=== PATIENT | female | born 1940 | race Caucasian/White ===

== ENCOUNTER → 2023-09-26 08:34 | Outpatient (REF) | payer MEDICARE, SELFPAY | LOC: DHCBC MAIN 08:34 | PROVIDERS: ATTENDING PHYSICIAN Internal Medicine Cardiovascular Disease; FAMILY PHYSICIAN Internal Medicine | DX: I35.0 Nonrheumatic aortic (valve) stenosis (principal) | CPT/HCPCS: 93306 ==

== ENCOUNTER 2023-10-23 06:15 | Inpatient (IN) | payer MEDICARE, OTHER, SELFPAY ==
[2023-10-23] VITALS (60 sets, daily range): BP systolic 97–203; BP diastolic 37–103; PULSE 2–115; BMI 42.3; BMI 40.7
--- NOTE | 2023-10-23 03:12 | ED.GENMED ---
History of Present Illness
General
Chief Complaint: Back Pain
Source: patient
Exam Limitations: none
Time Seen by Provider: 10/23/23 02:55
Nursing documentation reviewed up to this point in time: agreed with
Travel History
Have you had any contact with someone who has COVID-19?: No
Do you have any symptoms of coronavirus? Fever > 100 degrees, chills, cough, shortness of breath, sore throat, loss of taste or smell, muscle aches, or headache?: No
History of Present Illness
History of Present Illness:
Patient presents to ED secondary to persistent lower back pain over the past 1 week. Patient states that she felt pain as she was going in and out of the car. Denies previous history of back pain. Denies direct trauma. Denies fever or chills.
Denies urinary or bowel incontinence. Denies loss of sensation or weakness. Patient was evaluated by her primary care physician yesterday and was started on steroids, without improvement in symptoms. Of note, patient states that at rest, without
movement, there is minimal pain, but worse with any movement or ambulation.
Past History
Past History
ED Past Medical History: GERD, HTN, Hypercholesterolemia and NIDDM
ED Past Surgical History: Gynecological (Partial hysterectomy) and Orthopedic (Left knee arthroscopy, bilateral total knee replacement)
Social History
Tobacco: Non-smoker
Alcohol: None
Personal: Single
Living: alone
Employment: Retired
Family History
Family History: Other (Noncontributory)
Review of Systems
Review of Systems
Allergies reviewed?: Yes
All Other Systems: ROS reviewed and negative except as documented in HPI and ROS
Constitutional: Reports no symptoms; Denies fever
ABD/GI: Reports no symptoms
: Denies incontinence or difficulty voiding
Musculoskeletal: Reports back pain
Skin: Reports no symptoms
Neurological: Reports no symptoms; Denies weakness or numbness
Phy Exam
Physical Exam
Physical Exam:
Physical Exam
General: no apparent distress, not acutely ill. afebrile
Head; nc/at. eomi
Neck: supple. normal range of motion
Abdomen: normal bowel sounds. not tender.
Back: no midline tenderness. mild lower back tenderness at level of L4-5. positive right leg raise at 45 degrees.
Neuro: alert and oriented. no focal neurological deficits
Skin: no rash
Psychiatric: well kept. interactive and cooperative
Extremities: LE b/l lymphedema. no calf tenderness.
Scores
Heart Failure Risk
Heart Failure Risk Score: Yes
History of Stroke or TIA: No
History of intubation for respiratory distress: No
Heart rate on ED arrival >/= 110: Yes
SaO2 <90% on arrival on room air: Yes
HR >/=110 during 3min walk test (or too ill to perform test): No
ECG has acute ischemic changes: No
Urea >/=12mmol/L (BUN 33.6mg/dL): No
Serum CO2>/=35mmol/L: No
Troponin I or T elevated to IL Level (0.4mg/dL): No
NT-proBNP >/=5,000ng/L (5,000pg/ml): No
HF Risk Score: 1
Admission Status: MEDIUM RISK 5.1% Consider observation or discharge to home with homecare & f/u visit to PCP/[facility], or SNF for treatment
Course
Orders/Labs/Results
Orders:
Orders
10/23/23 03:08
Oxycodone/Acetaminophen [Percocet 5/325] 1 tablet PO NOW STA
CR Lumbar Spine Comp Min 4 Vw* Urgent
Comment:
Reason For Exam: low back pain
10/23/23 03:56
Electrocardiogram (*1) Urgent
Reason for Study: Shortness of Breath
EKG- Treatment ONCE
CR Chest Portable - 1 View Urgent
Comment:
Reason For Exam: cough/sob
Reason Study Needs to be Portable: Patient Unstable
10/23/23 03:57
Ipratropium/Albuterol Sulfate [Duoneb] 3 ml INH R NOW STA
10/23/23 04:03
Furosemide [Lasix] 40 mg IV NOW STA
10/23/23 04:04
Nitroglycerin 100 mg/250 ml [Nitroglycerin Premix] 100 mg in 250 ml .ROUTE .STK-MED
Nitroglycerin 100 mg/250 ml [Nitroglycerin Premix] 100 mg in 250 ml IV NOW
Initial dose in mcg/min, then titrate:: 100
Titrate to keep:: SBP < 160 mmHg
Titrate by mcg/min:: 5 mcg/min, may increase by 10 mcg/min if dose > 20 mcg/min
Frequency of titrations (minutes):: every 3-5 minutes
Maximum dose in mcg/min:: 200
Begin to taper infusion when:: Remained at goal for 2hrs
Taper by mcg/min:: 5 mcg/min
Frequency of taper (minutes) if patient maintains goal:: 30
Taper to off?: Yes
If infusion off & no longer maintaining goal:: Contact Provider
10/23/23 04:05
Complete Blood Count/With Diff Urgent
Comprehensive Metabolic Panel Urgent
Magnesium Urgent
NT-proBNP Urgent
Troponin I Urgent
10/23/23 04:26
D-Dimer Urgent
10/23/23 04:54
Electrocardiogram (*1) Urgent
Reason for Study: Shortness of Breath
EKG- Treatment ONCE
10/23/23 05:04
CT Chest Pe Study Urgent
Comment:
Reason For Exam: sob/hypoxia
10/23/23 05:36
Admit/Transfer Patient As Directed
Co-Sign Provider:
Level of Care: Inpatient admission
Assign to:: IMU- Intermediate Care
Physician / Group: John
Diagnosis: Hypertensive Emergency, Pulmonary Edema, Back Pain
Reason for Hospitalization: Hypertensive Emergency, Pulmonary Edema, Back Pain
Expected length of stay greater than two midnights?: Yes
ELOS- Estimated Length of Stay in days: 3
I certify the patient meets the requirements for IP care: Yes
10/23/23 05:38
Code Status As Directed
Resuscitation Status: Do not resuscitate
Reached after discussion with pt or family/Healthcare POA: Yes
10/23/23 05:41
DNR Bracelet Application ONCE
10/23/23 Breakfast
1800 calorie (15 carb) Diabetic
At Your Request: Full Participation
Fluid Restriction: 1440 mL/day (48 oz)
10/23/23 07:28
Dextrose 50%-Water [Dextrose 50% Syringe] 12.5 grams IV [id number] PRN
Glucagon [GlucaGen] 1 mg IM PRN PRN
Nitroglycerin 100 mg/250 ml [Nitroglycerin Premix] 100 mg in 250 ml IV PER PROTOCOL
Currently infusing. Continue current dose and titrate:: Yes
Titrate to keep:: SBP < 160 mmHg
Titrate by mcg/min:: 5 mcg/min, may increase by 10 mcg/min if dose > 20 mcg/min
Frequency of titrations (minutes):: every 3-5 minutes
Maximum dose in mcg/min:: 200
Begin to taper infusion when:: Remained at goal for 2hrs
Taper by mcg/min:: 5 mcg/min
Frequency of taper (minutes) if patient maintains goal:: 30
Taper to off?: Yes
If infusion off & no longer maintaining goal:: Contact Provider
Polyethylene Glycol Powder [Miralax] 17 grams PO DAILY PRN
Tramadol HCl [Ultram] 50 mg PO Q6HPRN PRN
10/23/23 07:28
CARDIOLOGY CONSULT Routine
Consulting Provider: Kali Wellington
Was physician already notified: No
Reason for consult: CHF,
Consult Notification Routine
Specialty to Notify: Cardiology
Date consulting provider notified: 10/23/23
Time consulting provider notified: 07:36
Notified:: Provider
Activity As Directed
Activity Level: Ambulate
With Assistance
Bedside Glucose Monitoring As Directed
Frequency: AC&HS
Additional Instructions:: Change to q6h if pt on TPN, tube feeding or not eating
Bladder Scan As Directed
Follow Bladder Retention/Intermittent Cath Algorithm?: Yes
PRN if no void in __ hours: 6
Frequency: Per Retention Algorithm
If Bladder Scan Result >: 400
then:: Straight cath
EKG with chest pain [ECG as needed] As Directed
ECG as needed for:: Chest Pain
Heat Application As Directed
Apply heat therapy device to (location):: Low Back
Device Frequency setting:: 20 minute cycles
Device temperature setting:: Low: 95 F (35 C)
I/O [Intake/ Output] As Directed
Frequency: Per unit guidelines
Straight Cath As Directed
Frequency: Per Retention Algorithm
Additional Instructions: straight cath as needed per acute urinary retention algorithm for 24 hrs
Additional Instructions: for bladder scan greater than 400 mL
Vital Signs As Directed
Frequency: Per unit guidelines
Weight As Directed
Frequency: Daily
Bipap [RESP] Routine
Patient to use own unit?: No
Inspiratory Pressure (cm H2O): 15
Expiratory Pressure (cm H2O): 5
Oxygen Therapy [O2 Therapy] [RESP] Routine
Titrate/Wean O2 to maintain O2 sat greater than (%): 94
Ot Eval And Treat Routine
PT Consult [Pt Eval And Treat] Routine
Activity Level: Ambulate
With Assistance
DX Deep Vein Thrombosis Video Routine
10/23/23 07:30
Insulin Aspart Corrective Low [Novolog Flexpen-Low Resistance] See Protocol SC AC
10/23/23 08:00
Acetaminophen [Tylenol] 1,000 mg PO TID
Aspirin Chewable [Low Strength Aspirin] 81 mg PO DAILY
Atorvastatin [Lipitor] 40 mg PO DAILY
Carvedilol [Coreg] 25 mg PO BID
Docusate Sodium [Colace] 100 mg PO BID
Furosemide [Lasix] 20 mg IV BID AT 0800,1600
Heparin 5,000 units SC Q12
Pantoprazole [Protonix] 40 mg PO DAILY
10/23/23 12:44
TSH Reflex To Free T4 Routine
10/24/23 05:10
Basic Metabolic Panel IN AM
Complete Blood Count/No Diff IN AM
Glycohemoglobin (HgbA1c) IN AM
10/24/23 06:00
EKG [Electrocardiogram (*1)] IN AM
Reason for Study: Chest Pain
Abnormal Lab Results
10/23/23 10/23/23
04:05 04:26
WBC 14.1 H 10^3/uL
(4.8-10.8)
RBC 3.77 L 10^6/uL
(4.20-5.40)
Hgb 11.9 L g/dL
(12.0-16.0)
Hct 34.0 L %
(37.0-47.0)
MCH 31.6 H pg
(27.0-31.0)
MPV 11.3 H fL
(7.4-10.4)
Abs Immat Gran (auto) 0.1 H 10^3/uL
(0-0.05)
Absolute Neuts (auto) 12.5 H 10^3/uL
(1.4-6.5)
Absolute Lymphs (auto) 0.8 L 10^3/uL
(1.2-3.4)
Immature Gran % 1.0 H %
(0-0.5)
Neutrophils % 88.7 H %
(42.2-75.2)
Lymphocytes % 5.8 L %
(20.5-51.1)
D-Dimer 1.59 H ug/mlFEU
(0.00-0.50)
Sodium 130 L mmol/L
(135-145)
Potassium 5.5 H mmol/L
(3.5-5.1)
BUN 22 H mg/dl
(7-17)
Creatinine 1.1 H mg/dL
(0.6-1.0)
Glucose 260 H mg/dl
(70-99)
Calcium 11.6 H mg/dl
(8.4-10.2)
Troponin I 0.063 H* ng/ml
10/23/23 04:05
10/23/23 04:05
Vital Signs
Initial and Last Documented VS:
Initial Vital Signs
Temp Pulse Resp BP Pulse Ox
98.3 F 84 16 198/65 94
10/23/23 02:52 10/23/23 02:52 10/23/23 02:52 10/23/23 02:52 10/23/23 02:52
Last Documented Vital Signs
Temp Pulse Resp BP Pulse Ox
97.5 F 54 14 158/51 97
10/24/23 03:06 10/24/23 04:00 10/24/23 04:00 10/24/23 04:00 10/24/23 03:00
MDM/Problems Addressed
MDM/Problems Addressed:
As patient is being evaluated for an acute lower back pain with x-ray, patient noted to become suddenly short of breath with hypoxia. On exam, patient with extreme sob with crackles on exam. Chest x-ray ordered confirming interstitial edema.
Patient given Lasix, started on BiPAP, as well as nitroglycerin bolus and infusion. Slowly, patient noted to become more restful subjective and objective improvement in symptoms.
Mildly elevated troponin noted with elevated d-dimer. Will obtain CTA for PE evaluation.
Critical care statement: A total of 40 minutes of critical care time was provided for this patient. This includes management of unstable vital signs, evaluation of the patient at bedside, reviewing the patient's pertinent medical records, review of
old EKGs and review of pertinent medical records. This time with separate from time utilized to perform the aforementioned documented procedures
*EKG
Interpreted by ED Provider?: Yes
EKG Intrepretation Date: 10/23/23
Heart Rate: 122
Rate: tachycardiac
Rhythm: sinus
[place]: normal axis
Interval: normal interval
QRS Pattern: normal QRS
*Critical Care Note
Total Time (30-74mins, 75-104mins- exclusive of procedures): 40 min
ED Attending Note
-
Portions of this chart may have been created with voice recognition software.� Occasional wrong word or��sound alike� substitutions may have occurred due to the inherent limitations of voice recognition software.
Discharge Plan
Departure
Patient Disposition: Admit
Date of Disposition: 10/23/23
Time of Disposition: 05:12
Admit to: IMU
Presentation/result/management discussed w/ accepting MD/DO: Hospitalist
Discharge Problem:
Pulmonary edema, Hypoxia, Back pain
Interventions
Interventions:
*Risk Screen - Suicide Last Done: 10/23/23 02:52
*General Assessment Last Done: 10/23/23 02:52
*Neglect/Abuse Screening Last Done: 10/23/23 02:52
ED- Fall Risk Assessment Last Done: 10/23/23 03:55
*ED COVID-19 Vaccine History Last Done: 10/23/23 02:52
*Nursing Disposition Last Done: 10/23/23 07:38
ED-Musculoskeletal Assessment Last Done: 10/23/23 03:55
Discharge Date and Time
Discharge Date/Time: 10/23/23 07:39
[2023-10-23] MEDS: PERCOCET 5/325 1 TABLET PO (03:48)
--- NOTE | 2023-10-23 03:55 | EDRN ---
On initial assessment of pt pt had a slight audible wheeze. Pt denied SOB and sated her only complaint was her back. Pain medication adminitered, SPO2 shortly following was 80% on room air with increasingly worse wheezing and sudden respiratory
distress. Pt with no difficulty swallowing medication, no signs of aspiration. Dr. phoenix notified and at the bedside. Pt BP quickly increased, Two Iv lines were placed, bloodwork drawn and sent to lab, ecg completed, respiratory paged for bipap. 40mg
iv lasix administered by rn, 1200mcg iv nitro pushed by dr. phoenix, nitro gtt started, see worklist for titration. RNs and Dr. Phoenix remained at the bedside. Currently pt states easier work of breathing following medications and bipap placement. Ongoing
care.
[2023-10-23 04:15] LABS: % Basophils 0.2 % (0-2); % Lymphocytes 5.8 % (20.5-51.1); % Monocytes 4.3 % (1.7-9.3); % Neutrophils 88.7 % (42.2-75.2); Absolute Immature Granulocytes 0.1 10^3/uL (0-0.05); Absolute Lymphocytes 0.8 10^3/uL (1.2-3.4); Absolute Monocytes 0.6 10^3/uL (0.1-0.6); Absolute Neutrophils 12.5 10^3/uL (1.4-6.5); Hemoglobin 11.9 g/dL (12.0-16.0); Mean Corpuscular Hgb 31.6 pg (27.0-31.0); Mean Corpuscular Volume 90.2 fL (81.0-99.0); Mean Platelet Volume 11.3 fL (7.4-10.4); Nucleated Red Blood Cells % 0 %; Platelet Count 305 10^3/uL (130-400); Red Blood Cell Count 3.77 10^6/uL (4.20-5.40); Red Cell Dist. Width 12.9 % (11.5-14.5); White Blood Cell Count 14.1 10^3/uL (4.8-10.8)
[2023-10-23] MEDS: DUONEB 3 ML INH (04:17)
[2023-10-23] MEDS: LASIX 40 MG IV (04:18)
[2023-10-23] MEDS: NITROGLYCERIN PREMIX 250 IV (04:19)
[2023-10-23 04:39] LABS: ALT (SGPT) 22 U/L (0-35); AST (SGOT) 24 U/L (14-36); Albumin 4.2 g/dl (3.5-5.0); Alkaline Phosphatase 125 U/L (38-126); Blood Urea Nitrogen 22 mg/dl (7-17); Calcium 11.6 mg/dl (8.4-10.2); Carbon Dioxide 22 mmol/L (22-30); Chloride 103 mmol/L (98-107); Estimated Creatinine Clearance 42 ml/min; Glucose 260 mg/dl (70-99); Magnesium 1.6 mg/dl (1.6-2.3); Potassium 5.5 mmol/L (3.5-5.1); Sodium 130 mmol/L (135-145); Total Bilirubin 0.8 mg/dl (0.2-1.3); Total Protein 6.8 g/dl (6.3-8.2); eGFR 50.48
[2023-10-23 04:55] LABS: D-Dimer 1.59 ug/mlFEU (0.00-0.50)
[2023-10-23 04:56] LABS: NT-proBNP 2150 pg/ml; Troponin I 0.063 ng/ml
--- NOTE | 2023-10-23 05:43 | HPS.HSE ---
Family Physician
-
Family Physician: Adry Ahmadi
Chief Complaint
-
Back Pain (then SOB)
History of Present Illness
Patient is an 83y F with PMH significant for hypertension, DM-II and severe who presents to ED complaining of low back pain for 7-10 days. Patient states that she was getting into / out of her car about 10 days ago when she felt a 'pull'.
She has noted persistent pain since that time in the mid-lower back with radiation around to the L. She denies any other specific injury, fall or trauma. She has not noted any rash or skin lesions in the affected area. Patient was seen by her PCP
on 10/20 and was started on a Medrol dose pack - without significant improvement in her symptoms.
This evening the patient presented to the ED for further evaluation. She was in mild - moderate distress on arrival due to her pain and her BP was elevated to 198/65 initially.
She received a single dose of Percocet in the ED and was sent for L-spine x-rays.
When she returned from x-ray, patent began to have significant SOB with marked hypoxemia (80% on room air) and worsening hypertension (203/103).
Patient was ultimately placed on BiPAP. CXR revealed evidence of pulmonary edema. Patient received IV Lasix and has had a brisk response.
At the time of my examination, patient feels much improved. She appears comfortable on BiPAP and is able to speak in complete sentences.
Patient denies any chest pain, palpitations. No recent illness, cough, fevers / chills, etc.
Patient does note that she has had increase in her typical LE edema - probably over the past 2 weeks or so.
She has no prior history of CHF - though she is followed by Cardiology for severe .
Medical History
Past Medical History
Past Medical History: Reports Other
Additional Past Medical History:
Hypertension
DM-II
Severe Aortic Stenosis
Mild-Moderate Mitral Regurgitation
DM-II
Obesity
GERD
Hyperparathyroidism
CKD III
Past Surgical History: Reports Other
Additional Past Surgical History:
Appendectomy
DRE
Bilateral TKA
Cholecystectomy
Social History
Tobacco: Non-smoker
Alcohol: None
Drug: None
Family History
Family History: Not pertinent
Allergies / Home Medications
Allergies reflects when Allergies were last updated in [employer].
Home Medications with original date entered in [employer]
Allergy/Medication List:
Allergies
Allergy/AdvReac Type Severity Reaction Status Date / Time
NSAIDS (Non-Steroidal Allergy Unknown Verified 10/23/23 02:57
Anti-Inflamma
sulindac Allergy Unknown Verified 10/23/23 02:57
Home Medications
omeprazole 10 mg capsule,delayed release (Prilosec) 20 mg PO DAILY PRN Heartburn 06/29/18
amlodipine 2.5 mg tablet 2.5 mg PO DAILY 10/23/23
atorvastatin 40 mg tablet 40 mg PO DAILY 10/23/23
carvedilol 25 mg tablet 25 mg PO BID 10/23/23
lisinopril 10 mg tablet 10 mg PO DAILY 10/23/23
pioglitazone 30 mg tablet (Actos) 30 mg PO DAILY 10/23/23
Review of Systems
-
History Source: Patient
A 12 point ROS was completed and negative except as noted: Yes
Constitutional: Reports Fatigue; Denies Fever or Chills
Respiratory: Reports Trouble Breathing; Denies Cough or Hemoptysis
Cardiac: Denies Chest Pain, Palpitations or Syncope
Abdomen/GI: Denies Abdominal Pain, Nausea, Vomiting or Diarrhea
: Denies Dysuria, Frequency or Bleeding
Musculoskeletal: Reports Edema and Other (Back Pain)
Neurological: Denies Dizzy or Headache
Psych: Denies Depression or Anxiety
Physical Exam
Vital Signs
Vital Signs
Temp Pulse Resp BP Pulse Ox
98.3 F 97 24 132/52 97
10/23/23 02:52 10/23/23 04:40 10/23/23 04:40 10/23/23 04:40 10/23/23 04:40
Physical Exam
General: Other (83y F in no acute distress.)
HEENT: Moist mucous membranes, PERRLA and Other (BiPAP in place.)
Respiratory: Other (Rales mostly appreciated on the R. No wheezes / rhonchi.)
Cardiac: S1/S2, Regular Rhythm and Murmur (IV/ VICENTE)
GI: Non Tender, Non Distended, Normal Bowel Sounds and Other (Obese)
Musculoskeletal: No Clubbing, No Cyanosis and Other (3+ pitting edema b/l LEs to the mid thigh. Posterior tenderness in L3 area. No visible rashes / skin lesions.)
Neuro: AO x 3 and Nonfocal/grossly intact
Laboratory Results
-
10/23/23 04:05
10/23/23 04:05
Laboratory Results
Total Bilirubin 0.8 mg/dl (0.2-1.3) 10/23/23 04:05
AST 24 U/L (14-36) 10/23/23 04:05
ALT 22 U/L (0-35) 10/23/23 04:05
Alkaline Phosphatase 125 U/L (38-126) 10/23/23 04:05
Troponin I 0.063 ng/ml H* 10/23/23 04:05
Impression/Plan
-
A/P: Patient is an 83y F with PMH significant for valvular heart disease, HTN and DM-II who presented to the ED for evaluation of low back pain and developed hypoxemia / pulmonary edema during her stay.
Acute HFpEF
Acute Hypoxemic Respiratory Failure secondary to the above
Severe Aortic Stenosis
Mild - Moderate Mitral Regurgitation
- Admit to IMU for further evaluation and treatment.
- Continue BiPAP for now and consider trial off of NIPPV later this morning.
- Continue IV Lasix BID and follow I/Os, daily weights, etc.
- Cardiology evaluation.
- Echo was done last month (09/26/23) and shows LVEF = 70-75% with diastolic dysfunction, severe and mild - moderate MR.
- No prior h//o CHF - though patient admits to recent increase in LE edema.
- Suspect that current episode is culmination of several factors including valvular heart disease, medication effects (Actos, amlodipine, Medrol), pain / hypertension, etc.
- Follow for continued clinical improvement and adjust med regimen as needed.
Hypertensive Emergency
- BP elevation exaggerated due to acute pain and likely contributed to acute pulm edema presentation.
- Continue IV NTG and titrate as needed / able.
- Hold amlodipine due to edema and lisinopril due to hyperkalemia.
- Continue carvedilol.
- Adjust med regimen / add additional medications as needed for continued BP control.
- Suspect BP will improve with diuresis and pain control.
- Be cautious with nitro / preload reduction given severe .
DM-II
- Stable. Discontinue Actos and would remain off of this indefinitely.
- Follow glucose and cover with SSI as needed for now.
- Consider alternate oral medications on discharge.
- Patient would likely benefit from SGLT2 inhibitor, etc.
Hyperkalemia
- K = 5.5 on initial labs. No significant EKG changes of hyperkalemia.
- Hold DRAKE inhibitor as noted above.
- IV Lasix diuresis.
- Follow for changes in labs / lytes.
Low Back Pain
- Patient describes radicular pain with no apparent rash / lesions noted on exam.
- Continue efforts at pain control.
- PT / OT evaluations.
- X-ray without obvious compression fracture, etc.
- Consider MR for further evaluation if pain - specifically radicular component - persists.
- Hold further Medrol doses.
Hyperparathyroidism
- Chronic hypercalcemia noted on labs with dx of hyperPTH.
- Not on any active treatment at this time.
- Follow for changes in labs, new symptoms, etc.
Morbid Obesity due to excess calories
- Affects all aspects of care.
- Encourage healthy diet and increased activity with goal of weight loss.
DVT Prophylaxis: Subcut Heparin
Code Status: DNR
[2023-10-23 08:21] LABS: Glucose - Point of Care 262 mg/dl (70-99)
[2023-10-23] MEDS: NOVOLOG FLEXPEN-LOW RESISTANCE 3 UNITS SC ×2 (08:33→12:53)
[2023-10-23] MEDS: COLACE 100 MG PO ×2 (08:34→20:26)
[2023-10-23] MEDS: HEPARIN 5000 UNITS SC ×2 (08:34→20:26)
[2023-10-23] MEDS: COREG 25 MG PO ×2 (08:34→20:27)
[2023-10-23] MEDS: LASIX 20 MG IV ×2 (08:35→15:32)
[2023-10-23] MEDS: LIPITOR 40 MG PO (08:35)
[2023-10-23] MEDS: PROTONIX 40 MG PO (08:36)
[2023-10-23] MEDS: LOW STRENGTH ASPIRIN 81 MG PO (08:36)
[2023-10-23] MEDS: TYLENOL 1000 MG PO ×3 (08:36→21:25)
[2023-10-23] MEDS: ULTRAM 50 MG PO (08:36)
[2023-10-23] MEDS: MIRALAX 17 GRAMS PO (08:37)
[2023-10-23] MEDS: LIDOCAINE 4% PATCH 1 PATCH TOPICAL (10:20)
--- NOTE | 2023-10-23 11:38 | CON.CAR ---
Consultation
Consultation Request
Date/Time Consultation Requested: 10/23/2023
Date/Time Consultation Performed: 10/23/2023
Requesting Provider: Dr. Lopez
Performing Provider: Dr. Wellington
Reason for Consultation: Severe aortic stenosis
Medical History
-
Chief Complaint: Shortness of breath
History of Present Illness:
83-year-old female (known to Dr. Hawk, her primary Solar Sales Specialist) with severe aortic stenosis, mild mitral stenosis, hypertension, hyperlipidemia, NIDDM, CKD, chronic edema, and obesity presenting with back pain and shortness of breath. The patient
was hypertensive on presentation with a blood pressure of 203/103 mmHg. She denies any chest pain, palpitations, or syncopal events. She has been noticing some progressive lower extremity swelling. She is not on Lasix at home. The patient was
admitted with flash pulmonary edema.
Past Medical History
Past Medical History: HTN, Hypercholesterolemia, NIDDM, Renal Failure and Valvular Disease (Severe aortic stenosis, mild mitral stenosis)
Past Surgical History: Appendectomy (2009), Cholecystectomy, Gynecological (Hysterectomy) and Orthopedic (Knee replacement surgeries)
Social History
Tobacco: Non-Smoker
Alcohol: None
Drug: None
Personal: Single
Living: Alone
Employment: Retired
Family History
Family History: CAD
Allergies / Home Medications
Allergy/AdvReac Type Severity Reaction Status Date / Time
NSAIDS (Non-Steroidal Allergy Unknown Verified 10/23/23 02:57
Anti-Inflamma
sulindac Allergy Unknown Verified 10/23/23 02:57
�Medication �Instructions �Recorded �Confirmed �Type
omeprazole 10 mg capsule,delayed 20 mg PO DAILY PRN Heartburn 06/29/18 10/23/23 History
release (Prilosec)
acetaminophen 500 mg tablet 1,000 mg PO Q6H PRN back pain 10/23/23 History
amlodipine 2.5 mg tablet 2.5 mg PO DAILY 10/23/23 10/23/23 History
atorvastatin 40 mg tablet 40 mg PO DAILY 10/23/23 10/23/23 History
carvedilol 25 mg tablet 25 mg PO BID 10/23/23 10/23/23 History
lisinopril 10 mg tablet 10 mg PO DAILY 10/23/23 10/23/23 History
pioglitazone 30 mg tablet (Actos) 30 mg PO DAILY 10/23/23 10/23/23 History
prednisone 5 mg tablets in a dose 0 mg PO PER PKG DIR 10/23/23 History
pack
Review of Systems
-
History Source: Patient
All other systems: Negative unless noted
Physical Exam
Vital Signs
Temp Pulse Resp BP Pulse Ox
97.6 F 56 19 117/50 98
10/23/23 08:03 10/23/23 11:00 10/23/23 11:00 10/23/23 11:00 10/23/23 11:29
Lab Results
10/23/23 04:05
Troponin I 0.063 ng/ml H* 10/23/23 04:05
Mmp-J-Ctapcqojavj Pept 2150 pg/ml 10/23/23 04:05
Physical Exam
General: No Apparent Distress and Comfortable
HEENT: Normocephalic
Respiratory: Rhonchi
Cardiac: S1/S2 (Normal S1, absent S2), Regular Rhythm, Murmur (4/6 systolic murmur) and Peripheral Edema (2-3+)
Breast: Deferred by me
GI: Soft
Rectal: Deferred by Provider
Musculoskeletal: Edema (2-3+)
Skin: Warm and Dry
Neuro: AO x 3
Psych: Calm
Impression / Plan
-
83-year-old female (known to Dr. Hawk, her primary Solar Sales Specialist) with severe aortic stenosis, mild mitral stenosis, hypertension, hyperlipidemia, NIDDM, CKD, chronic edema, and obesity presenting with back pain and shortness of breath. The patient
was hypertensive on presentation with a blood pressure of 203/103 mmHg. She denies any chest pain, palpitations, or syncopal events. She has been noticing some progressive lower extremity swelling. She is not on Lasix at home. The patient was
admitted with flash pulmonary edema.
Severe symptomatic aortic stenosis/acute HFpEF:
-Major contributor to flash pulmonary edema.
-The patient will benefit from a TAVR, likely as inpatient.
-Will arrange cardiac catheterization for tomorrow; NPO after midnight.
-Continue Lasix 20 mg IV twice daily; monitor renal function.
-Mild troponin elevation is most likely secondary to acute nonischemic myocardial injury in the setting of valvular heart disease/HFpEF; continue to trend.
Hypertension:
-Hypertensive on admission--major component of flash pulmonary edema; improved with IV Lasix.
-Continue Coreg 25 mg twice daily
-Hold lisinopril 10 mg daily for now.
Hyperlipidemia:
-Continue atorvastatin 40 mg daily.
Mitral stenosis:
-Mild; follow clinically over time.
CKD:
-Creatinine is 1.1; relatively stable.
-Continue to trend renal function throughout hospitalization.
Diabetes:
-Management as per primary team.
Previous data:
Transthoracic Echocardiogram (09/26/2023): EF 70-75%; severe aortic stenosis, peak/mean gradients 93/52 mmHg, KAELYN 0.7 cm�; mild MS, mild/moderate MR.
Data Reviewed
-
EKG: Report Reviewed by me (Sinus rhythm)
Medical Tests (Nuc Med, Echo etc): Report Reviewed by me (Transthoracic Echocardiogram (09/26/2023): EF 70-75%; severe aortic stenosis, peak/mean gradients 93/52 mmHg, KAELYN 0.7 cm�; mild MS, mild/moderate MR.)
Labs: Labs Reviewed by me
Old Records: Reviewed (Cardiology office visit 10/03/2023)
[2023-10-23 12:11] LABS: Glucose - Point of Care 251 mg/dl (70-99)
--- NOTE | 2023-10-23 12:23 | PTCARENOTE ---
3 unsuccessful attempts to draw labs, phlebotomy made aware and will be up to draw labs
[2023-10-23] MEDS: NOVOLOG FLEXPEN 3 UNITS SC ×2 (12:54→16:59)
[2023-10-23 13:17] LABS: Troponin I 0.097 ng/ml
[2023-10-23 13:35] LABS: TSH Reflex To Free T4 2.98 uIU/ml (0.47-4.68)
--- NOTE | 2023-10-23 14:09 | W.PN.UPDATE ---
Update Note
Progress Note Update
Nonbillable note
Lab/images/chart reviewed
Patient seen and examined
Heart failure exacerbation/sev -entered on IV Lasix. Cardiology evaluation pending.
Hypertensive emergency -on nitro drip. Getting oral blood pressure medication. Wean off nitro as possible with
Hyperkalemia -got Lokelma. On Lasix. Follow-up level and BMP.
Low back pain -lumbar spinal x-ray negative for compression fracture. Lidocaine patch ordered. MRI if not improved.
--- NOTE | 2023-10-23 14:42 | PTCARENOTE ---
Pt continues with back pain with movement, but resting comfortably when undisturbed. Turned/repositioned. Denies sob, oxygen weaned to 2lnc.
[2023-10-23 14:57] LABS: COVID-19 Antigen Negative (Negative)
--- NOTE | 2023-10-23 15:40 | PTCARENOTE ---
Attempted to wean pt to room air, sats dropped as low as 88%. Pt denies sob, does not look in distress, placed back on 2lnc and sats quickly improved to high 90s. Bp has been stable off nitro gtt since this am. Pt continues to wince in pain with
repositioning, , medicated with tylenol as charted.
[2023-10-23 16:40] LABS: Glucose - Point of Care 172 mg/dl (70-99)
[2023-10-23] MEDS: NOVOLOG FLEXPEN-LOW RESISTANCE 1 UNITS SC (16:59)
[2023-10-23 18:44] LABS: Blood Urea Nitrogen 26 mg/dl (7-17); Calcium 11.4 mg/dl (8.4-10.2); Carbon Dioxide 22 mmol/L (22-30); Chloride 101 mmol/L (98-107); Estimated Creatinine Clearance 35 ml/min; Glucose 174 mg/dl (70-99); Potassium 4.8 mmol/L (3.5-5.1); Sodium 129 mmol/L (135-145); eGFR 41.31
[2023-10-23 21:34] LABS: Glucose - Point of Care 161 mg/dl (70-99)
[2023-10-24] VITALS (28 sets, daily range): BP systolic 91–168; BP diastolic 39–108; PULSE 2–68; BMI 40.3
--- NOTE | 2023-10-24 00:12 | PTCARENOTE ---
Rec'd care of patient at 1900. Patient alert and oriented. KAW. SB on tele monitor. Rate in the 50's. +Murmur. BP stable off nitro gtt. +1 anasarca. +3 chronic edema in b/l LE. Voiding via purewick. No BM. VSS. Placed on BiPAP around 2200. NPO for
cardiac cath in am.
[2023-10-24 00:32] LABS: Troponin I 0.071 ng/ml
[2023-10-24] MEDS: ULTRAM 50 MG PO ×2 (02:26→08:16)
[2023-10-24 05:32] LABS: Hematocrit 29.9 % (37.0-47.0); Hemoglobin 10.4 g/dL (12.0-16.0); Mean Corp Hgb Conc. 34.8 g/dL (33.0-37.0); Mean Corpuscular Hgb 31.5 pg (27.0-31.0); Mean Corpuscular Volume 90.6 fL (81.0-99.0); Mean Platelet Volume 11.2 fL (7.4-10.4); Platelet Count 225 10^3/uL (130-400); Red Cell Dist. Width 12.9 % (11.5-14.5); White Blood Cell Count 7.1 10^3/uL (4.8-10.8)
[2023-10-24 06:01] LABS: Blood Urea Nitrogen 27 mg/dl (7-17); Calcium 11.3 mg/dl (8.4-10.2); Carbon Dioxide 23 mmol/L (22-30); Chloride 101 mmol/L (98-107); Estimated Creatinine Clearance 35 ml/min; Glucose 161 mg/dl (70-99); Potassium 4.5 mmol/L (3.5-5.1); Sodium 132 mmol/L (135-145); eGFR 41.31
[2023-10-24] MEDS: LIDOCAINE 4% PATCH 1 PATCH TOPICAL (08:11)
[2023-10-24] MEDS: NOVOLOG FLEXPEN SC (08:11)
[2023-10-24] MEDS: LIPITOR 40 MG PO (08:17)
[2023-10-24] MEDS: TYLENOL 1000 MG PO ×3 (08:17→20:59)
[2023-10-24] MEDS: COREG 25 MG PO (08:17)
[2023-10-24] MEDS: COLACE 100 MG PO (08:18)
[2023-10-24] MEDS: HEPARIN 5000 UNITS SC ×2 (08:18→20:53)
[2023-10-24] MEDS: LOW STRENGTH ASPIRIN 81 MG PO (08:18)
[2023-10-24] MEDS: LASIX 20 MG IV ×2 (08:18→15:59)
[2023-10-24] MEDS: NOVOLOG FLEXPEN-LOW RESISTANCE 1 UNITS SC ×3 (08:19→16:55)
[2023-10-24] MEDS: PROTONIX 40 MG PO (08:19)
[2023-10-24 08:23] LABS: Glucose - Point of Care 158 mg/dl (70-99)
--- NOTE | 2023-10-24 08:48 | PTCARENOTE ---
report received, assessments per work list. patient with increased back pain, intermittent and increased with position change. unable to tolerate head of bed elevation past 20 degrees. medicated with scheduled Tylenol and prn dose tramadol. . +3
lower extremity edema. +murmur, nsr. lungs with crackles 3/4 up bilaterally. oxygen decreased to 1 liter. abdomen obese, + bowel sounds. purewick in place draining large amounts yellow urine. call cotton in reach. reviewed plan of care and cardiac
cath for today.
[2023-10-24 09:50] LABS: Glycohemoglobin (HgbA1c) 8.6 % (4.0-5.6)
--- NOTE | 2023-10-24 10:07 | PTCARENOTE ---
report to veterinary laboratory technician staff,transport to veterinary laboratory technician by veterinary laboratory technician staff
--- NOTE | 2023-10-24 10:12 | W.PN.CD ---
Today's Communication / Plan
-
R/L heart cath as a preamble to TAVR.
D/C outpatient pioglitazone.
Adjust diuretics based on filling pressures at cath.
Impression / Plan
-
Impression/Plan: 83-year-old female (known to Dr. Hawk, her primary Legal Analyst) with severe aortic stenosis, mild mitral stenosis, hypertension, hyperlipidemia, NIDDM, CKD, chronic edema, and obesity admitted with hypertensive emergency and
shortness of breath consistent with flash pulmonary edema.
#Severe symptomatic aortic stenosis/acute HFpEF
-Major contributor to flash pulmonary edema.
-The patient will benefit from a TAVR.
-Cardiac catheterization today to evaluate for CAD and as a workup for TAVR.
#Abnormal Troponin
-Acute.
-Plateau trend (0.063 --> 0.097 --> 0.090 --> 0.071), consistent with non-MO troponin elevation.
#Hypertension
-Chronic, labile.
-Hypertensive on admission--major component of flash pulmonary edema; improved with IV furosemide.
-Continue carvedilol 25 mg BID.
-Hold lisinopril 10 mg daily for now.
#Hyperlipidemia:
-Chronic, stable.
-Continue atorvastatin 40 mg daily.
#Mitral stenosis:
-Mild, stable.
-Follow clinically over time.
#CKD
-Stable. Creatinine is 1.1 - 1.3.
-Continue to trend renal function throughout hospitalization.
#Diabetes:
-Chronic.
-HbA1c pending.
-Management as per primary team.
-D/C pioglitazone given HFpEF symptoms.
Subjective/Interval History:
Diuresed 2.7 liters per I/O, weight down another kg.
Bradycardic (50's).
Labile BP, (99/39 - 168/53).
Remains on 1LNC, SaO2 98%.
Hbg down to 10.4 (from 11.9).
DATA:
CTPE, 10/23/2023:
IMPRESSION:
No findings to confirm central pulmonary embolism.
Patchy bilateral parenchymal opacities some of which are groundglass which could represent an inflammatory/infectious process, alveolar edema or combination of both with accompanying small bilateral pleural effusions.
Mild cardiomegaly with small anterior pericardial effusion versus pericardial thickening.
Small hiatal hernia.
Prior cholecystectomy.
TTE, 09/26/2023:
CONCLUSIONS
Hyperdynamic left ventricular systolic function. Estimated left ventricular
ejection fraction is 70-75%.
Stage II diastolic dysfunction suggestive of abnormal relaxation and increased
filling pressures.
Severe aortic stenosis. The peak gradient across the valve is 93 mmHg with a
mean of 52 mmHg. Using a LVOT diameter of 2.0 cm, the KAELYN is 0.7 cm sq. Trace
aortic regurgitation.
Mild mitral stenosis. Mild/moderate mitral regurgitation.
Compared to 02/18/23: mean gradient across the aortic valve has increased from 42
mmHg to 52 mmHg. LVEF has increased from 65-70% to 70-75%.
Physical Exam
Vital Signs/Labs
Vital Signs
Temp Pulse Resp BP Pulse Ox
36.1 C 53 14 168/53 98
10/24/23 07:24 10/24/23 09:00 10/24/23 09:00 10/24/23 08:18 10/24/23 09:00
10/22/23 10/23/23 10/24/23
11:59 11:59 11:59
Actual Weight 94.461 kg 93.712 kg
10/24/23 05:10
10/24/23 05:10
Magnesium 1.6 mg/dl (1.6-2.3) 10/23/23 04:05
10/23/23
04:05
Pam-S-Ucmkyohcvje Pept 2150
LAB Results
10/23/23 10/23/23 10/23/23
04:05 07:28 12:44
Troponin I 0.063 H* Cancelled 0.097 H*
10/23/23 10/23/23 10/23/23
13:28 18:15 19:28
Troponin I Cancelled 0.090 H* Cancelled
10/23/23
23:45
Troponin I 0.071 H*
Physical Exam
Constitutional: No acute distress and Comfortable
EENT: Anicteric and Moist mucous membranes
Cardiovascular: Rhythm & rate is regular, Pedal edema is absent, JVD pressure is normal, Systolic murmur present and S1S2 is normal
Respiratory: Respiratory effort normal, Lungs clear to auscul., Wheeze Absent, Crackles Absent and Rhonchi Absent
GI: Soft, Distention absent, Flat, Non tender and Normal bowel sounds
Neuro/Psych: AO x 3
Data Reviewed
-
Date of Service: October 24, 2023
Medical Decision Making: Reviewed Test Results, Independent Historian Assessment and Test Interpretation
EKG: Tracing Personally Visualized and interpreted and Report Reviewed by me
Echo: Tracing Personally Visualized and interpreted and Report Reviewed by me
X-Ray/CT/US/MRI/NUC/PET: Image Personally Visualized and interpreted and Report Reviewed by me
Medical Tests (PFT, Pathology etc): Report Reviewed by me
Labs: Labs Reviewed by me
Old Records: Reviewed
[2023-10-24 11:18] LABS: ACT-LR - POC 310 Seconds (116-155)
--- NOTE | 2023-10-24 11:29 | ITS.CL.CATH ---
[facility] - Catheterization
Cardiac Catheterization
Procedure Report:
CARDIAC CATHETERIZATION REPORT
Date of Procedure: 10/24/2023
Referring: Kali Wellington M.D.
Indication: Critical aortic valve stenosis, abnormal troponin.
PROCEDURE:
1. Right heart catheterization.
2. Coronary angiography.
3. Successful IFR of the mid LAD.
ACCESS:
6 Danish right radial artery.
5 Danish right antecubital vein.
CATHETERS:
1. 5 Danish balloon wedge.
2. 5 Danish JL 4.
3. 5 Danish JR4.
4. 6 Danish EBU 3.5 guiding catheter.
HEMODYNAMIC DATA
Weight (kg): 93.7
AO (s/d/x mmHg): 158/54/84
LV (s/x mmHg): Not obtained.
PCWP (a/v/x mmHg): 26/30/24
PA (s/d/x mmHg): 45/25/32
RV (s/x mmHg): 45/15
RA (a/v/x mmHg): 17/17/15
SVC SvO2 (%): 62.4
PA SvO2 (%): 62.5
SaO2 (%): 91.7
Hbg (g/dL): 11.1
CO (L/min): 3.58
CI (L/min/m2): 1.89
TPG (mmHg): 8
PVR (Menendez Units): 2.23
SVR (dynes*seconds*cm^-5): 1542
AVO2 Diff (Volume %): 4.41
AV gradient (x, mmHg): Not obtained.
AV area (cm2): Not obtained.
LEFT VENTRICULOGRAPHY: Not performed.
CORONARY ANGIOGRAPHY
Dominance: Right.
Left Main: Normal size, bifurcating vessel. There is some tapering of the ostium of the vessel.
LAD: Normal size vessel giving rise to 1 significant diagonal. There is a 60% lesion in the mid vessel, spanning the origin of the diagonal.
Ramus: Congenitally absent.
Circumflex: Small size, nondominant vessel that is essentially a single marginal supplying the inferolateral wall.
RCA: Large size, dominant vessel with a substantial posterolateral arcade. There is no coronary artery disease.
INTERVENTIONS
1. Successful IFR of the 60% mid LAD lesion, demonstrating nonocclusive/borderline disease (IFR = 0.90).
Narrative:
The decision was made to perform physiologic testing. The diagnostic catheter was removed over a wire and exchanged for a(n) 6 Danish EBU 3.5 guiding catheter. The guiding catheter was advanced into the ascending aorta and seated in the left main
coronary artery. Additional heparin was given to obtain an ACT greater than 250 seconds. An iFR wire was zeroed outside of the body, then inserted into the guiding sheath. The wire was advanced and the transducer was normalized just outside of the
guiding catheter tip. The wire was advanced into the mid LAD, beyond the 60% lesion. Three iFR measurements were taken. The lesion was determined to be nonocclusive/borderline (0.90). Given the patient's symptoms were primarily shortness of breath
and her presentation much more consistent with pulmonary edema than acute coronary syndrome, the decision was made to manage this lesion medically (rather than proceed to provocative testing) and evaluate for transcatheter aortic valve replacement.
Closure Device: Vascular band for the right radial artery, manual pressure for the right antecubital vein.
Radiation dose (mGy): 483.45
DAP (cm2.Gy): 48.1952
Fluoroscopy time (minutes): 10.2
Sedation time (minutes): 25
CONCLUSIONS:
1. Right dominant circulation with a nonocclusive/borderline 60% mid LAD lesion (IFR = 0.90).
2. Severely elevated filling pressures (PCWP = 24 mmHg at 93.7 kg).
3. Mild postcapillary pulmonary hypertension, WHO group 2.
4. Critical aortic valve stenosis by echocardiography.
RECOMMENDATIONS:
1. Expectant management after cardiac catheterization via right radial/antecubital approach.
2. Limited weight bearing on the right wrist for one week.
3. Primary prevention with high-dose, high potency statin.
4. TAVR workup.
Copy to: Kali Wellington M.D., Angel Hawk M.D., Adry Ahmadi M.D.
Ovidio Carter DO, FACC, FACP
[2023-10-24 12:15] LABS: Glucose - Point of Care 167 mg/dl (70-99)
--- NOTE | 2023-10-24 12:32 | CM ---
CM following re: discharge planning.
Discussed in Rounds, reviewed pt's chart, met with p[t.
Pt is an 83 year old female, admitted with primary dx of HTN emergency. per Rounds meeting, pt is to cardiac geophysical laboratory chief today. PT and OT will evaluate
Pt reports she lives alone in [facility] apartment, 2nd floor with elevator, has supportive niece and nephew, sister lives at [facility]. Pt reports she ambulates with a cane, drives.
PT and OT evaluations pending.
PCP: Adry Sotomayor
Pharmacy: [facility]
D/C plan; home with most likely VN, awaiting for PT/OT recommendation.
CM will follow with discharge plan updates as hospitalization progresses
--- NOTE | 2023-10-24 12:36 | PTCARENOTE ---
Addendum entered by Gianan Power RN 10/24/23 12:58:
right AC peripheral removed by shift lab technician staff during procedure
Original Note:
patient received from shift lab technician, pressure dressing dry and intact right brachial site. TR band in place right wrist. + distal pulses, hand cool but has cap refill. site ecchymotic. no signs bleeding or hematoma. patient instructed not to weight bear
right arm, she verbalizes understanding. repositioned, lunch tray ordered. call cotton in reach
[2023-10-24] MEDS: NSS 1000 IV (12:42)
--- NOTE | 2023-10-24 13:08 | W.PN.HOSP.TC ---
Today's Communication/Plan
-
monitor vitals
see plan
wean o2 as tolerated
transfer to IVU
cw IV lasix
pain control
Assessment / Plan
Assessment / Plan
General: Other (83y F in no acute distress.)
HEENT: Moist mucous membranes, PERRLA
Respiratory: Other (Rales mostly appreciated on the R. No wheezes / rhonchi.)
Cardiac: S1/S2, Regular Rhythm and Murmur (IV/ VCIENTE)
GI: Non Tender, Non Distended, Normal Bowel Sounds and Other (Obese)
Musculoskeletal: No Clubbing, No Cyanosis and Other (3+ pitting edema b/l LEs to the mid thigh. Posterior tenderness in L3 area. No visible rashes / skin lesions.)
Neuro: AO x 3 and Nonfocal/grossly intact
Acute HFpEF
Acute Hypoxemic Respiratory Failure secondary to the above
Severe Aortic Stenosis
Mild - Moderate Mitral Regurgitation
Was placed on BiPAP on admission. Now on nasal cannula
Continue with IV Lasix
Catheterization / with elevated right-sided pressure.
- Cardiology following
- Echo was done last month (09/26/23) and shows LVEF = 70-75% with diastolic dysfunction, severe and mild - moderate MR.
- No prior h//o CHF - though patient admits to recent increase in LE edema.
- Suspect that current episode is culmination of several factors including valvular heart disease, medication effects (Actos, amlodipine, Medrol), pain / hypertension, etc.
- Follow for continued clinical improvement and adjust med regimen as needed.
Hypertensive Emergency
- BP elevation exaggerated due to acute pain and likely contributed to acute pulm edema presentation.
- Was initially started on nitroglycerin, now off nitro drip
- Hold amlodipine due to edema and lisinopril due to hyperkalemia.
- Continue carvedilol.
- Adjust med regimen / add additional medications as needed for continued BP control.
DM-II
- Stable. Discontinue Actos and would remain off of this indefinitely.
- Follow glucose and cover with SSI as needed for now.
- Consider alternate oral medications on discharge.
- Patient would likely benefit from SGLT2 inhibitor, etc.
Hyperkalemia
improving
hold aceinh for now
monitor with diuresis
Low Back Pain
- Patient describes radicular pain with no apparent rash / lesions noted on exam.
- Continue efforts at pain control.
- PT / OT evaluations.
- X-ray without obvious compression fracture, etc.
- Consider MR for further evaluation if pain persist
- Hold further Medrol doses.
Hyperparathyroidism
- Chronic hypercalcemia noted on labs with dx of hyperPTH.
- Not on any active treatment at this time.
- Follow for changes in labs, new symptoms, etc.
Morbid Obesity due to excess calories
- Affects all aspects of care.
- Encourage healthy diet and increased activity with goal of weight loss.
DVT Prophylaxis: Subcut Heparin
Code Status: DNR
I spent a total of 52 minutes with the patient or on the floor. More than 50% of this time involved counseling and coordination of care.
Anticipated Discharge: > 48 hours
Subjective/Interval History
-
Date of Service: October 24, 2023
denies pain
Objective Data
-
Labs:
Laboratory Results
10/24/23
05:10
WBC 7.1
Hgb 10.4 L
Hct 29.9 L
Plt Count 225 D
Sodium 132 L
Potassium 4.5
Chloride 101
Carbon Dioxide 23
BUN 27 H
Creatinine 1.3 H
Glucose 161 H
Calcium 11.3 H
Vital Signs:
Vital Signs
Temp Pulse Resp BP Pulse Ox
97 F 48 12 133/47 98
10/24/23 07:24 10/24/23 13:00 10/24/23 13:00 10/24/23 13:00 10/24/23 13:00
I&O
10/23/23 10/24/23 10/25/23
06:59 06:59 06:59
Intake Total 845.1 / 845.1 690 / 690
Output Total 3475 / 3475 900 / 900
Balance -2629.9 / -2629.9 -210 / -210
[2023-10-24] MEDS: NOVOLOG FLEXPEN 3 UNITS SC ×2 (13:19→16:56)
--- NOTE | 2023-10-24 14:26 | CONSULT.STRU ---
Consultation
-
Date/Time Consultation Requested: 10/24/2023 1130
Date/Time Consultation Performed: 10/24/2023 1345
Requesting Provider: Dr. Ovidio Carter
Performing Provider: ANNITA Crane
Reason for Consultation: Aortic Stenosis/TAVR evaluation
Patient History
Physicians
Family Physician: Adry Ahmadi
Outpatient Dispatcher Motor Vehicle: Angel Hawk
Primary Dispatcher Motor Vehicle: Angel Hawk
History of Present Illness
Patient is an 83y F with PMH of hypertension, DM-II and severe who presented to ED on 10/22 complaining of low back pain for 7-10 days. Patient states that she was getting into her a little over a week ago when she felt a 'pull'. She has noted
persistent pain since that time in the mid-lower back with radiation around to the L. She denies any other specific injury, fall or trauma. Patient was seen by her PCP on 10/20 and was started on a Medrol dose pack - without significant improvement
in her symptoms so decided to come to the ED for further evaluation. She was in mild - moderate distress on arrival due to her pain and her BP was elevated to 198/65 initially.
She received a single dose of Percocet in the ED and was sent for L-spine x-rays. When she returned from x-ray, she began to have significant SOB with marked hypoxemia (80% on room air) and worsening hypertension (203/103). Patient was ultimately
placed on BiPAP. CXR revealed evidence of pulmonary edema. Patient received IV Lasix and has had a brisk response. She underwent cardiac cath today that demonstrated right dominant circulation with a nonocclusive/borderline 60% mid LAD lesion (IFR
= 0.90). Severely elevated filling pressures (PCWP = 24 mmHg at 93.7 kg). Mild postcapillary pulmonary hypertension, WHO group 2. She has known aortic stenosis and has been follow by Dr. Hawk as an outpatient. Most recent echocardiogram was
09/26/2023 show severe with PG/M/52, KAELYN: 0.7, trace AI, EF 70-75%. She denies any chest pain, palpitations. No recent illness, cough, fevers / chills, etc. Patient does note that she has had increase in her typical LE edema - probably over
the past 2 weeks or so. She has no prior history of CHF. Consult received from Dr. Carter to begin evaluation for TAVR as an outpatient.
Reviewed the pathophysiology of aortic stenosis with the patient. Explained the treatment options of SAVR and TAVR. Explained the TAVR evaluation process including follow up BMP, CT TAVR scan, CT surgery consult and Heart Team discussion. Provided
with script for BMP next week, script and appointment for CT TAVR chest only due to CKD, Consult appointment with Dr. Villalobos and a copy of the TAVR education booklet with contact information. Allowed for and answered questions. At the patient's
request, called her niece and left name and contact number to review treatment plan.
Past Medical History
Past Medical History: CAD (Mid LAD-60%), GERD, HTN, Hypercholesterolemia, NIDDM, Renal Insufficiency, Valvular Disease (, MR) and Other (osteoarthritis)
Past Surgical History
Past Surgical History: Appendectomy, Cholecystectomy (laproscopic), Hysterectomy and Orthopedic (bilateral knee replacements)
Dental History
Has not been to a dentist in years, does not currently have one
Family History
Mother: at Age (73)
Father: at Age (74)
Family Medical History: CAD
Social History
Alcohol: None
Drug: None
Tobacco: Non-Smoker
Living: Alone
Employment: Retired
Allergies
Allergy/AdvReac Type Severity Reaction Status Date / Time
NSAIDS (Non-Steroidal Allergy Unknown Verified 10/23/23 02:57
Anti-Inflamma
sulindac Allergy Unknown Verified 10/23/23 02:57
Home Medications
�Medication �Instructions �Recorded �Confirmed �Type
omeprazole 10 mg capsule,delayed 20 mg PO DAILY PRN Heartburn 06/29/18 10/23/23 History
release (Prilosec)
acetaminophen 500 mg tablet 1,000 mg PO Q6H PRN back pain 10/23/23 History
amlodipine 2.5 mg tablet 2.5 mg PO DAILY Blood Pressure 10/23/23 10/23/23 History
atorvastatin 40 mg tablet 40 mg PO DAILY High Cholesterol 10/23/23 10/23/23 History
carvedilol 25 mg tablet 25 mg PO BID Blood Pressure 10/23/23 10/23/23 History
lisinopril 10 mg tablet 10 mg PO DAILY Blood Pressure 10/23/23 10/23/23 History
pioglitazone 30 mg tablet (Actos) 30 mg PO DAILY Diabetes 10/23/23 10/23/23 History
prednisone 10 mg tablets in a dose 0 mg PO PER PKG DIR 10/23/23 History
pack
STS%
STS %: 5.65%
Review of Systems
-
History Source: Patient
General: Reports Other (back pain)
HEENT: Reports No Symptoms
Respiratory: Reports Asthma (mild, no inhalers)
Cardiac: Reports Edema (bilateral LE over last couple weeks)
Abdomen/GI: Reports Constipation
: Reports Frequency
Musculoskeletal: Reports Other (back pain)
Skin: Reports No Symptoms
Neurological: Reports No Symptoms
Vascular: Reports No Symptoms
Physical Exam
Vital Signs
Temp 97 F 10/24/23 07:24
Temp route: Oral 10/24/23 07:24
Pulse 48 10/24/23 13:00
Rhythm: Normal sinus rhythm 10/24/23 08:15
With- Sinus bradycardia 10/24/23 08:15
Resp Rate 12 10/24/23 13:00
Blood pressure 133/47 10/24/23 13:00
MAP (cuff-Glen Monitor) 70 10/24/23 13:00
MAP 103 10/23/23 02:52
SaO2 98 10/24/23 13:00
Nasal Cannula flow liters per minute 1 10/24/23 08:59
Oxygen Mode of Delivery BiPAP 10/23/23 08:00
Flow liters per minute # 4 10/23/23 08:00
Can the patient verbally communicate their pain? Yes 10/24/23 09:16
Pain scale ratin 10/24/23 09:16
Actual Weight 93.712 kg 10/24/23 03:34
Body Mass Index (BMI) 40.3 10/24/23 03:34
Labs
10/24/23 05:10
10/24/23 05:10
Hemoglobin A1c 8.6 % (4.0-5.6) H 10/24/23 05:10
Troponin I 0.071 ng/ml H* 10/23/23 23:45
Epg-D-Ymihsdgkwjc Pept 2150 pg/ml 10/23/23 04:05
Diagnostic Studies
Echocardiogram 09/26/2023:
CONCLUSIONS
Hyperdynamic left ventricular systolic function. Estimated left ventricular
ejection fraction is 70-75%.
Stage II diastolic dysfunction suggestive of abnormal relaxation and increased
filling pressures.
Severe aortic stenosis. The peak gradient across the valve is 93 mmHg with a
mean of 52 mmHg. Using a LVOT diameter of 2.0 cm, the KAELYN is 0.7 cm sq. Trace
aortic regurgitation.
Mild mitral stenosis. Mild/moderate mitral regurgitation.
Compared to 02/18/23: mean gradient across the aortic valve has increased from 42
mmHg to 52 mmHg. LVEF has increased from 65-70% to 70-75%
Indications:
Nonrheumatic aortic (valve) stenosis
Rhythm: Sinus
Portable Study: No
Technical Quality: Good
Contrast: None
BP: 166 / 64
PROCEDURE
A complete Transthoracic Echocardiogram was performed utilizing two-dimensional
evaluation with color flow and spectral Doppler analysis.
FINDINGS
Left Ventricle
Left ventricle is small in size. Mild concentric left ventricular hypertrophy.
Hyperdynamic left ventricular systolic function. Normal regional wall motion.
Estimated left ventricular ejection fraction is 70-75% by Tanner's method of
discs. Stage II diastolic dysfunction suggestive of abnormal relaxation and
increased filling pressures.
Right Ventricle
Normal right ventricular size and function.
Left Atrium
Indexed LA volume is severely abnormal (> 48 mL/m2).
Right Atrium
Mildly dilated right atrium.
Mitral Valve
Thickened mitral valve leaflets. Mitral annular calcification. Mild mitral
stenosis. Mean gradient of 5 mmHg. Mild/moderate mitral regurgitation.
Aortic Valve
Thickened aortic valve with restricted leaflet motion. Severe aortic stenosis.
The peak gradient across the valve is 93 mmHg with a mean of 52 mmHg. Using a
LVOT diameter of 2.0 cm, the KAELYN is 0.7 cm sq. Trace aortic regurgitation.
Tricuspid Valve
Tricuspid valve normal. Mild tricuspid regurgitation. Estimated pulmonary
artery pressure of 39 mmHg assuming a right atrial pressure of 8 mmHg. Mildly
elevated PASP.
Pulmonic Valve
Structurally normal pulmonic valve without significant stenosis or
regurgitation.
Pericardium\\Pleura
Normal pericardium without effusion.
Aorta
The aortic root is of normal size. Normal size proximal ascending aorta.
Other Finding
The IVC is of normal size but does not collapse with inspiration. Color flow
pattern suggestive of small PFO.
MEASUREMENTS (Male / Female) Normal Values
2D ECHO
LV Diastolic Diameter PLAX 3.8 cm 4.2 - 5.9 / 3.9 - 5.3 cm
LV Systolic Diameter PLAX 2.4 cm
IVS Diastolic Thickness 1.0 cm 0.6 - 1.0 / 0.6 - 0.9 cm
LVPW Diastolic Thickness 1.0 cm 0.6 - 1.0 / 0.6 - 0.9 cm
LV Relative Wall Thickness 0.5
LVOT Diameter 2.0 cm
LV Ejection Fraction MOD BP 73.9 % >= 55 %
LV Stroke Volume MOD BP 51.0 cm3
LV Stroke Volume MOD 4C 48.0 cm3
LV Stroke Volume 4C AL 49.2 cm3
LV Stroke Volume MOD 2C 50.0 cm3
LV Stroke Volume 2C AL 52.3 cm3
LA Area 4C View 26.5 cm2 <= 20 cm2
LA Length 4C 6.1 cm
LA Volume 94.0 cm3 18 - 58 / 22 - 52 cm3
LA Volume Index 51.3 cm3/m2 16 - 34 cm3/m2
Ascending Aorta Diameter 2.9 cm
M-MODE
Aortic Root Diameter MM 3.2 cm
LA Systolic Diameter MM 5.0 cm
LA Ao Ratio MM 1.6
DOPPLER
AV Peak Velocity 483.0 cm/s
AV Peak Gradient 93.3 mmHg
AV Mean Gradient 52.0 mmHg
AV Velocity Time Integral 116.5 cm
LVOT Peak Velocity 108.0 cm/s
LVOT Peak Gradient 4.7 mmHg
LVOT Velocity Time Integral 27.7 cm
LVOT Stroke Volume 87.0 cm3
LVOT Stroke Volume Index 41.9 ml/m2 empty
AV Area Cont Eq vti 0.7 cm2
AV Area Cont Eq pk 0.7 cm2
MV Peak Velocity 193.0 cm/s
MV Peak Gradient 14.9 mmHg
MV Mean Velocity 108.0 cm/s
MV Mean Gradient 5.0 mmHg
MV Area PHT 2.5 cm2
Mitral E Point Velocity 141.0 cm/s
Mitral A Point Velocity 158.0 cm/s
Mitral E to A Ratio 0.9
LV E' Lateral Velocity 6.8 cm/s
Mitral E to LV E' Lateral Ratio 20.7
LV E' Septal Velocity 6.0 cm/s
Mitral E to LV E' Septal Ratio 23.3
TR Peak Velocity 278.0 cm/s
TR Peak Gradient 30.9 mmHg
Cardiac catheterization 10/24/2023
HEMODYNAMIC DATA
Weight (kg):93.7
AO (s/d/x mmHg): 158/54/84
LV (s/x mmHg): Not obtained.
PCWP (a/v/x mmHg): /
PA (s/d/x mmHg):
RV (s/x mmHg): 45/15
RA (a/v/x mmHg):
SVC SvO2 (%):62.4
PA SvO2 (%):62.5
SaO2 (%):91.7
Hbg (g/dL):11.1
CO (L/min): 3.58
CI (L/min/m2): 1.89
TPG (mmHg): 8
PVR (Menendez Units): 2.23
SVR (dynes*seconds*cm^-5): 1542
AVO2 Diff (Volume %): 4.41
AV gradient (x, mmHg):Not obtained.
AV area (cm2):Not obtained.
LEFT VENTRICULOGRAPHY: Not performed.
CORONARY ANGIOGRAPHY
Dominance: Right.
Left Main: Normal size, bifurcating vessel. There is some tapering of the ostium of the vessel.
LAD: Normal size vessel giving rise to 1 significant diagonal. There is a 60% lesion in the mid vessel, spanning the origin of the diagonal.
Ramus: Congenitally absent.
Circumflex: Small size, nondominant vessel that is essentially a single marginal supplying the inferolateral wall.
RCA: Large size, dominant vessel with a substantial posterolateral arcade. There is no coronary artery disease.
INTERVENTIONS
1. Successful IFR of the 60% mid LAD lesion, demonstrating nonocclusive/borderline disease (IFR = 0.90).
Narrative:
The decision was made to perform physiologic testing. The diagnostic catheter was removed over a wire and exchanged for a(n) 6 [place] EBU 3.5 guiding catheter. The guiding catheter was advanced into the ascending aorta and seated in the left main
coronary artery. Additional heparin was given to obtain an ACT greater than 250 seconds. An iFR wire was zeroed outside of the body, then inserted into the guiding sheath. The wire was advanced and the transducer was normalized just outside of the
guiding catheter tip. The wire was advanced into the mid LAD, beyond the 60% lesion. Three iFR measurements were taken. The lesion was determined to be nonocclusive/borderline (0.90). Given the patient's symptoms were primarily shortness of breath
and her presentation much more consistent with pulmonary edema than acute coronary syndrome, the decision was made to manage this lesion medically (rather than proceed to provocative testing) and evaluate for transcatheter aortic valve replacement.
Closure Device: Vascular band for the right radial artery, manual pressure for the right antecubital vein.
Radiation dose (mGy): 483.45
DAP (cm2.Gy): 48.1952
Fluoroscopy time (minutes):10.2
Sedation time (minutes):25
CONCLUSIONS:
1. Right dominant circulation with a nonocclusive/borderline 60% mid LAD lesion (IFR = 0.90).
2. Severely elevated filling pressures (PCWP = 24 mmHg at 93.7 kg).
3. Mild postcapillary pulmonary hypertension, WHO group 2.
4. Critical aortic valve stenosis by echocardiography.
RECOMMENDATIONS:
1. Expectant management after cardiac catheterization via right radial/antecubital approach.
2. Limited weight bearing on the right wrist for one week.
3. Primary prevention with high-dose, high potency statin.
4. TAVR workup.
Exam
General: Well Developed, Well Nourished, No Apparent Distress and Comfortable
HEENT: Normocephalic and Moist Mucous Membranes
Neck: Trachea Midline
Respiratory: Clear; Negative Wheezes, Crackles, Rhonchi or Accessory Muscle Use
Cardiac: S1/S2, Regular Rhythm and Murmur (systolic murmur grade III/)
GI: Soft, Non Tender, Non Distended and Normal Bowel Sounds
Rectal: Deferred by Provider
Skin: Warm
Neuro: AO x 3 and No Motor Deficits
Extremities: Lower Level Edema (+2 bilateral LE) and Pulses (+1 dp pulses bilaterally)
Psych: Calm
Assessment / Plan
-
Severe Aortic stenosis:
��������������� Continue evaluation for TAVR
��������������� BMP 10/31/2023 at [facility]
��������������� CT TAVR scan 11/09 at 0930 at
��������������� CT surgery consult with Dr. Villalobos 11/15/2023
��������������� Heart team discussion at [facility]
Dental clearance
CAD- LAD with 60% lesion
Continue Statin
Betablocker
ASA daily
Heart healthy diet
CKD
Stable with creatinine 1.1-1.3, last GFR41.31
Continue to trend renal function
Needs CT with contrast for TAVR evaluation- pending follow up BMP will consider IV hydration and splitting CT scan
Acute Heart Failure NYHA III
Daily weights
Low sodium diet
Diurese per cardiology recommendations
Follow BMP
Data Reviewed
-
EKG: Report Reviewed by me (no conduction issues)
Scholarship Counselor: Discussed with Physician
Echo: Report Reviewed by me
Labs: Labs Reviewed by me
Total Time Spent with Patient (in minutes): 45
--- NOTE | 2023-10-24 14:40 | PTCARENOTE ---
no void since retrun from calibration laboratory technician. bladder scan as documented. patient refusing straight cath at this time.
--- NOTE | 2023-10-24 16:11 | PTCARENOTE ---
patient voided large amount utilizing external pure wick. TR band removed, dressing applied. no signs bleeding or hematoma. dry dressing applied
[2023-10-24 17:03] LABS: Glucose - Point of Care 166 mg/dl (70-99)
--- NOTE | 2023-10-24 17:58 | PTCARENOTE ---
patient with excellent appetite. c/o back pain and a headache but refusing tramadol at this time. had lrge soft formed bowel movement on bedpan. call cotton in reach. dressing right radial and brachial dry and intact.
--- NOTE | 2023-10-24 20:00 | PTCARENOTE ---
rec`d pt 1900, AAOx3, resting in bed. pt hard of hearing. continues to complain of lower back pain. [address] SR to SB on monitor. murmur noted. +4 lower edema. pt on 1L satting at 98%. Bm at change of shift. formed, brown stool. purwick
in place. call cotton in reach. pt`s niece at bedside.
[2023-10-24] MEDS: COLACE PO (20:43)
[2023-10-24] MEDS: COREG PO (20:48)
[2023-10-25] VITALS (19 sets, daily range): BP systolic 90–173; BP diastolic 43–94; PULSE 67; O2SAT 96; BMI 40.3
[2023-10-25 04:37] LABS: % Basophils 0.2 % (0-2); % Eosinophils 3.5 % (0-6); % Immature Granulocytes 0.5 % (0-0.5); % Lymphocytes 11.6 % (20.5-51.1); % Monocytes 9.3 % (1.7-9.3); % Neutrophils 74.9 % (42.2-75.2); Absolute Eosinophils 0.3 10^3/uL (0-0.7); Absolute Monocytes 0.8 10^3/uL (0.1-0.6); Absolute Neutrophils 6.6 10^3/uL (1.4-6.5); Hematocrit 30.1 % (37.0-47.0); Hemoglobin 10.3 g/dL (12.0-16.0); Mean Corp Hgb Conc. 34.2 g/dL (33.0-37.0); Mean Corpuscular Hgb 31.7 pg (27.0-31.0); Mean Corpuscular Volume 92.6 fL (81.0-99.0); Mean Platelet Volume 11.1 fL (7.4-10.4); Nucleated Red Blood Cells % 0 %; Platelet Count 226 10^3/uL (130-400); Red Blood Cell Count 3.25 10^6/uL (4.20-5.40); Red Cell Dist. Width 12.8 % (11.5-14.5); White Blood Cell Count 8.8 10^3/uL (4.8-10.8)
[2023-10-25 05:05] LABS: Blood Urea Nitrogen 28 mg/dl (7-17); Calcium 10.7 mg/dl (8.4-10.2); Carbon Dioxide 25 mmol/L (22-30); Chloride 101 mmol/L (98-107); Estimated Creatinine Clearance 38 ml/min; Glucose 123 mg/dl (70-99); Potassium 4.2 mmol/L (3.5-5.1); Sodium 131 mmol/L (135-145); eGFR 45.48
--- NOTE | 2023-10-25 07:49 | W.PN.CD ---
Today's Communication / Plan
-
Continue IV diuresis weight continues to come down
Outpatient TAVR workup
Impression / Plan
-
Impression/Plan: 83-year-old female (known to Dr. Hawk, her primary Distance Education Coordinator) with severe aortic stenosis, mild mitral stenosis, hypertension, hyperlipidemia, NIDDM, CKD, chronic edema, and obesity admitted with hypertensive emergency and
shortness of breath consistent with flash pulmonary edema.
#Severe symptomatic aortic stenosis/acute HFpEF improving weight 206 lbs May 7
-Major contributor to flash pulmonary edema.
-The patient will benefit from a TAVR.
-nonobstructive CAD
- Severely elevated PCWP
- diuresis continue with bid IV lasix
#Abnormal Troponin
-Acute.
-Plateau trend (0.063 --> 0.097 --> 0.090 --> 0.071), consistent with non-ID troponin elevation.
#Hypertension
-Chronic, labile.
-Hypertensive on admission--major component of flash pulmonary edema; improved with IV furosemide.
-Continue carvedilol 25 mg BID.
-Likely restart tomorrow if Cr stable lisinopril 10 mg daily for now.
#Hyperlipidemia:
-Chronic, stable.
-Continue atorvastatin 40 mg daily.
#Mitral stenosis:
-Mild, stable.
-Follow clinically over time.
#CKD
-Stable. Creatinine is 1.1 - 1.3.
-Continue to trend renal function throughout hospitalization.
#Diabetes:
-Chronic.
-HbA1c pending.
-Management as per primary team.
-D/C pioglitazone given HFpEF symptoms.
Subjective/Interval History:
Diuresed 2.7 liters per I/O, weight down another kg.
Bradycardic (50's).
Labile BP, (99/39 - 168/53).
Remains on 1LNC, SaO2 98%.
Hbg down to 10.4 (from 11.9).
DATA:
CTPE, 10/23/2023:
IMPRESSION:
No findings to confirm central pulmonary embolism.
Patchy bilateral parenchymal opacities some of which are groundglass which could represent an inflammatory/infectious process, alveolar edema or combination of both with accompanying small bilateral pleural effusions.
Mild cardiomegaly with small anterior pericardial effusion versus pericardial thickening.
Small hiatal hernia.
Prior cholecystectomy.
TTE, 09/26/2023:
CONCLUSIONS
Hyperdynamic left ventricular systolic function. Estimated left ventricular
ejection fraction is 70-75%.
Stage II diastolic dysfunction suggestive of abnormal relaxation and increased
filling pressures.
Severe aortic stenosis. The peak gradient across the valve is 93 mmHg with a
mean of 52 mmHg. Using a LVOT diameter of 2.0 cm, the KAELYN is 0.7 cm sq. Trace
aortic regurgitation.
Mild mitral stenosis. Mild/moderate mitral regurgitation.
Compared to 02/18/23: mean gradient across the aortic valve has increased from 42
mmHg to 52 mmHg. LVEF has increased from 65-70% to 70-75%.
Cath October 23: CONCLUSIONS:
1. Right dominant circulation with a nonocclusive/borderline 60% mid LAD lesion (IFR = 0.90).
2. Severely elevated filling pressures (PCWP = 24 mmHg at 93.7 kg).
3. Mild postcapillary pulmonary hypertension, WHO group 2.
4. Critical aortic valve stenosis by echocardiography.
Physical Exam
Vital Signs/Labs
Vital Signs
Temp Pulse Resp BP Pulse Ox
97.4 F 61 14 162/44 99
10/25/23 04:00 10/25/23 06:00 10/25/23 06:00 10/25/23 05:00 10/25/23 06:00
10/24/23 10/25/23 10/26/23
06:59 06:59 06:59
Actual Weight 206 lb 9.6 oz 206 lb 7.6 oz
10/25/23 04:22
10/25/23 04:22
Magnesium 1.6 mg/dl (1.6-2.3) 10/23/23 04:05
10/23/23
04:05
Giq-O-Nhoppiblaip Pept 2150
LAB Results
10/23/23 10/23/23 10/23/23
04:05 07:28 12:44
Troponin I 0.063 H* Cancelled 0.097 H*
10/23/23 10/23/23 10/23/23
13:28 18:15 19:28
Troponin I Cancelled 0.090 H* Cancelled
10/23/23
23:45
Troponin I 0.071 H*
Physical Exam
Constitutional: No acute distress
EENT: Anicteric
Cardiovascular: Rhythm & rate is regular, Pedal edema present and Systolic murmur present
Respiratory: Lungs clear to auscul. and Other (poor inspiratory effort )
GI: Soft
Neuro/Psych: AO x 3
Data Reviewed
-
Date of Service: October 25, 2023
Medical Decision Making: Reviewed Test Results
EKG: Tracing Personally Visualized and interpreted (sr)
Echo: Report Reviewed by me (severe as )
Labs: Labs Reviewed by me
--- NOTE | 2023-10-25 08:30 | PTCARENOTE ---
Assumed care of patient. Assessment documented. Rec'd on R/A...sats 92%. Took po meds w/o issue....ate breakfast. VS documented. Call cotton within reach. Tx to IVU when bed available.
[2023-10-25] MEDS: NOVOLOG FLEXPEN-LOW RESISTANCE SC (08:32)
[2023-10-25] MEDS: LIDOCAINE 4% PATCH 1 PATCH TOPICAL (08:32)
[2023-10-25] MEDS: TYLENOL 1000 MG PO ×3 (08:33→21:14)
[2023-10-25] MEDS: LOW STRENGTH ASPIRIN 81 MG PO (08:33)
[2023-10-25] MEDS: PROTONIX 40 MG PO (08:33)
[2023-10-25] MEDS: COREG 25 MG PO ×2 (08:34→19:49)
[2023-10-25] MEDS: COLACE PO ×2 (08:34→19:51)
[2023-10-25] MEDS: LIPITOR 40 MG PO (08:34)
[2023-10-25] MEDS: LASIX 20 MG IV ×2 (08:35→15:19)
[2023-10-25] MEDS: HEPARIN 5000 UNITS SC ×2 (08:35→19:49)
[2023-10-25] MEDS: NOVOLOG FLEXPEN 3 UNITS SC ×3 (08:35→17:36)
[2023-10-25 08:42] LABS: Glucose - Point of Care 140 mg/dl (70-99)
--- NOTE | 2023-10-25 11:55 | CM ---
CM following re: discharge planning.
Reviewed pt's chart, met with pt.
PT and OT evaluations noted - SNF level of care recommended. Pt is aware, expressed her agreement and pt preferred [facility]. Pt stated her sister lives at [facility] and she will be able to meet with her.
A referral to [facility] made, spoke to director of food and nutrition Scar and she is reviewing a referral.
According to pt most likely will be discharged tomorrow. Pt is aware, expressed her agreement. IMM reviewed, placed on chart, pt has a copy.
D/C plan: [facility].
CM will follow to assist pt with discharge to [facility].
[2023-10-25] MEDS: NOVOLOG FLEXPEN-LOW RESISTANCE 1 UNITS SC ×2 (11:56→17:36)
[2023-10-25 12:08] LABS: Glucose - Point of Care 186 mg/dl (70-99)
--- NOTE | 2023-10-25 13:40 | W.PN.HOSP.TC ---
Today's Communication/Plan
-
monitor vitals
see plan
cw IV lasix
PT/OT
ok for tele
Assessment / Plan
Assessment / Plan
General: Other (83y F in no acute distress.)
HEENT: Moist mucous membranes, PERRLA
Respiratory: Other (Rales mostly appreciated on the R. No wheezes / rhonchi.)
Cardiac: S1/S2, Regular Rhythm and Murmur (IV/ VICENTE)
GI: Non Tender, Non Distended, Normal Bowel Sounds and Other (Obese)
Musculoskeletal: No Clubbing, No Cyanosis and Other (3+ pitting edema b/l LEs to the mid thigh. Posterior tenderness in L3 area. No visible rashes / skin lesions.)
Neuro: AO x 3 and Nonfocal/grossly intact
Acute HFpEF
Acute Hypoxemic Respiratory Failure secondary to the above
Severe Aortic Stenosis
Mild - Moderate Mitral Regurgitation
Was placed on BiPAP on admission. Now on rom air
Continue with IV Lasix
Catheterization / with elevated right-sided pressure. plan now for IV diuresis and TAVR evaluation outpatient
- Cardiology following
- Echo was done last month (09/26/23) and shows LVEF = 70-75% with diastolic dysfunction, severe and mild - moderate MR.
- No prior h//o CHF - though patient admits to recent increase in LE edema.
- Suspect that current episode is culmination of several factors including valvular heart disease, medication effects (Actos, amlodipine, Medrol), pain / hypertension, etc.
- Follow for continued clinical improvement and adjust med regimen as needed.
Hypertensive Emergency
- BP elevation exaggerated due to acute pain and likely contributed to acute pulm edema presentation.
- Was initially started on nitroglycerin, now off nitro drip
- Hold amlodipine due to edema and lisinopril due to hyperkalemia.
- Continue carvedilol.
- Adjust med regimen / add additional medications as needed for continued BP control.
DM-II
- Stable. Discontinue Actos and would remain off of this indefinitely.
- Follow glucose and cover with SSI as needed for now.
- Consider alternate oral medications on discharge.
- Patient would likely benefit from SGLT2 inhibitor, etc.
Hyponatremia
monitor
Hyperkalemia
improving
hold aceinh for now
monitor with diuresis
Low Back Pain
- Patient describes radicular pain with no apparent rash / lesions noted on exam.
- Continue efforts at pain control.
- PT / OT evaluations.
- X-ray without obvious compression fracture, etc.
- Consider MR for further evaluation if pain persist
- Hold further Medrol doses.
Hyperparathyroidism
- Chronic hypercalcemia noted on labs with dx of hyperPTH.
- Not on any active treatment at this time.
- Follow for changes in labs, new symptoms, etc.
Mild hypercalcemia
Monitor
Morbid Obesity due to excess calories
- Affects all aspects of care.
- Encourage healthy diet and increased activity with goal of weight loss.
DVT Prophylaxis: Subcut Heparin
Code Status: DNR
Anticipated Discharge: Within 24 hours
Subjective/Interval History
-
Date of Service: October 25, 2023
denies pain
Objective Data
-
Labs:
Laboratory Results
10/25/23
04:22
WBC 8.8
Hgb 10.3 L
Hct 30.1 L
Plt Count 226
Sodium 131 L
Potassium 4.2
Chloride 101
Carbon Dioxide 25
BUN 28 H
Creatinine 1.2 H
Glucose 123 H
Calcium 10.7 H
Vital Signs:
Vital Signs
Temp Pulse Resp BP Pulse Ox
97 F 68 14 90/62 94
10/25/23 12:30 10/25/23 13:30 10/25/23 13:30 10/25/23 13:00 10/25/23 13:15
I&O
10/24/23 10/25/23 10/26/23
06:59 06:59 06:59
Intake Total 845.1 / 845.1 1670 / 1670 240 / 240
Output Total 3475 / 3475 1950 / 1950 700 / 700
Balance -2629.9 / -2629.9 -280 / -280 -460 / -460
--- NOTE | 2023-10-25 14:00 | PTCARENOTE ---
Report called to Liz BELLAMY on 3rd floor. Pt to transfer to Room 337-2.
[2023-10-25] MEDS: ULTRAM 50 MG PO (17:09)
[2023-10-25 17:24] LABS: Glucose - Point of Care 158 mg/dl (70-99)
[2023-10-25 21:29] LABS: Glucose - Point of Care 174 mg/dl (70-99)
[2023-10-26 03:27] VITALS: BP 150/54
[2023-10-26 05:47] LABS: % Basophils 0.3 % (0-2); % Eosinophils 5.6 % (0-6); % Immature Granulocytes 0.3 % (0-0.5); % Monocytes 11.5 % (1.7-9.3); % Neutrophils 64.3 % (42.2-75.2); Absolute Eosinophils 0.4 10^3/uL (0-0.7); Absolute Lymphocytes 1.2 10^3/uL (1.2-3.4); Absolute Monocytes 0.7 10^3/uL (0.1-0.6); Absolute Neutrophils 4.1 10^3/uL (1.4-6.5); Hematocrit 29.7 % (37.0-47.0); Hemoglobin 10.4 g/dL (12.0-16.0); Mean Corpuscular Hgb 31.3 pg (27.0-31.0); Mean Corpuscular Volume 89.5 fL (81.0-99.0); Nucleated Red Blood Cells % 0 %; Platelet Count 218 10^3/uL (130-400); Red Blood Cell Count 3.32 10^6/uL (4.20-5.40); Red Cell Dist. Width 12.8 % (11.5-14.5); White Blood Cell Count 6.4 10^3/uL (4.8-10.8)
[2023-10-26 06:00] VITALS: BMI 38.6
[2023-10-26 06:14] LABS: Blood Urea Nitrogen 25 mg/dl (7-17); Calcium 11.3 mg/dl (8.4-10.2); Carbon Dioxide 26 mmol/L (22-30); Chloride 100 mmol/L (98-107); Estimated Creatinine Clearance 32 ml/min; Glucose 128 mg/dl (70-99); Potassium 4.1 mmol/L (3.5-5.1); Sodium 133 mmol/L (135-145)
[2023-10-26 07:00] VITALS: BP 158/53
[2023-10-26 07:10] LABS: Glucose - Point of Care 155 mg/dl (70-99)
[2023-10-26 07:52] VITALS: BMI 38.6
[2023-10-26] MEDS: COLACE PO (07:56)
[2023-10-26] MEDS: LOW STRENGTH ASPIRIN 81 MG PO (07:57)
[2023-10-26] MEDS: PROTONIX 40 MG PO (07:57)
[2023-10-26] MEDS: LIPITOR 40 MG PO (07:57)
[2023-10-26] MEDS: TYLENOL 1000 MG PO (07:57)
[2023-10-26] MEDS: COREG 25 MG PO (07:58)
[2023-10-26] MEDS: LIDOCAINE 4% PATCH 1 PATCH TOPICAL (07:58)
[2023-10-26] MEDS: LASIX 20 MG IV (07:58)
[2023-10-26] MEDS: HEPARIN 5000 UNITS SC (07:59)
[2023-10-26] MEDS: NOVOLOG FLEXPEN 3 UNITS SC ×2 (08:00→12:07)
[2023-10-26] MEDS: NOVOLOG FLEXPEN-LOW RESISTANCE 1 UNITS SC (08:00)
--- NOTE | 2023-10-26 08:21 | W.PN.CD ---
Today's Communication / Plan
-
STop IV lasix, start lasix 40 mg daily
We will sign off; please call with questions/concerns
Impression / Plan
-
Impression/Plan: 83-year-old female (known to Dr. Hawk, her primary Emergency Management System Director) with severe aortic stenosis, mild mitral stenosis, hypertension, hyperlipidemia, NIDDM, CKD, chronic edema, and obesity admitted with hypertensive emergency and
shortness of breath consistent with flash pulmonary edema.
#Severe symptomatic aortic stenosis/acute HFpEF improving weight 197 lbs October 25
-Major contributor to flash pulmonary edema.
-The patient will benefit from a TAVR.
-nonobstructive CAD
- Severely elevated PCWP
- Daily 40 lasix labs in 1 week; stop IV diuresis
#Abnormal Troponin
-Acute.
-Plateau trend (0.063 --> 0.097 --> 0.090 --> 0.071), consistent with non-VT troponin elevation.
#Hypertension
-Chronic, labile, improving
-Hypertensive on admission--major component of flash pulmonary edema; improved with IV furosemide.
-Continue carvedilol 25 mg BID.
-Restart lisinopril October 25
#Hyperlipidemia:
-Chronic, stable.
-Continue atorvastatin 40 mg daily.
#Mitral stenosis:
-Mild, stable.
-Follow clinically over time.
#CKD
-Stable. Creatinine is 1.4 October 25
-Continue to trend renal function throughout hospitalization.
#Diabetes:
-Chronic.
-HbA1c pending.
-Management as per primary team.
-D/C pioglitazone given HFpEF symptoms.
Subjective/Interval History:
Weight is now lowest its been in [place], now off 02 and feeling well, discussed diuretics
Hbg down to 10.4 (from 11.9) stable
DATA:
CTPE, 10/23/2023:
IMPRESSION:
No findings to confirm central pulmonary embolism.
Patchy bilateral parenchymal opacities some of which are groundglass which could represent an inflammatory/infectious process, alveolar edema or combination of both with accompanying small bilateral pleural effusions.
Mild cardiomegaly with small anterior pericardial effusion versus pericardial thickening.
Small hiatal hernia.
Prior cholecystectomy.
TTE, 09/26/2023:
CONCLUSIONS
Hyperdynamic left ventricular systolic function. Estimated left ventricular
ejection fraction is 70-75%.
Stage II diastolic dysfunction suggestive of abnormal relaxation and increased
filling pressures.
Severe aortic stenosis. The peak gradient across the valve is 93 mmHg with a
mean of 52 mmHg. Using a LVOT diameter of 2.0 cm, the KAELYN is 0.7 cm sq. Trace
aortic regurgitation.
Mild mitral stenosis. Mild/moderate mitral regurgitation.
Compared to 02/18/23: mean gradient across the aortic valve has increased from 42
mmHg to 52 mmHg. LVEF has increased from 65-70% to 70-75%.
Cath October 23: CONCLUSIONS:
1. Right dominant circulation with a nonocclusive/borderline 60% mid LAD lesion (IFR = 0.90).
2. Severely elevated filling pressures (PCWP = 24 mmHg at 93.7 kg).
3. Mild postcapillary pulmonary hypertension, WHO group 2.
4. Critical aortic valve stenosis by echocardiography.
Physical Exam
Vital Signs/Labs
Vital Signs
Temp Pulse Resp BP Pulse Ox
98.2 F 64 18 150/54 97
10/26/23 03:27 10/26/23 03:27 10/26/23 03:27 10/26/23 03:27 10/26/23 03:27
10/25/23 10/26/23 10/27/23
06:59 06:59 06:59
Actual Weight 206 lb 7.6 oz 197 lb 14.4 oz
10/26/23 05:29
05/08/24 05:29
Magnesium 1.6 mg/dl (1.6-2.3) 10/23/23 04:05
10/23/23
04:05
Xxm-N-Xykxcnrjynw Pept 2150
LAB Results
10/23/23 10/23/23 10/23/23
07:28 12:44 13:28
Troponin I Cancelled 0.097 H* Cancelled
10/23/23 10/23/23 10/23/23
18:15 19:28 23:45
Troponin I 0.090 H* Cancelled 0.071 H*
Physical Exam
Constitutional: No acute distress
EENT: Anicteric
Cardiovascular: Rhythm & rate is regular and Pedal edema present (lipomatous trivial pitting )
Respiratory: Respiratory effort normal
GI: Soft
Neuro/Psych: AO x 3
Data Reviewed
-
Date of Service: October 26, 2023
Medical Decision Making: Reviewed Test Results
EKG: Tracing Personally Visualized and interpreted (SR)
Echo: Report Reviewed by me
Labs: Labs Reviewed by me
[2023-10-26] MEDS: ZESTRIL 10 MG PO (08:50)
--- NOTE | 2023-10-26 09:51 | W.HF.CON ---
Heart Failure
- LV Function
Left ventricular function study result: LV Ejection fraction >40% (ECHO 09/26/23)
Ejection Fraction Percentage: 70-75
- ARNI
Patient already on ARNI: No
Heart Failure ARNI Not Indicated: LV Ejection Fraction >/= 40%
- ACEI/ARB
Patient already on ACEI/ARB: Yes
- Beta Fauzia
Patient already on Evidence Based Beta Fauzia: Yes
- Mineralocorticord Receptor Antagonist
Patient already on MRA: No
Heart Failure MRA Not Indicated: LV Ejection Fraction > 40%
- SGLT-2 Inhibitor
Patient already on SGLT-2 Inhibitor: No
Heart Failure SGLT-2 Inhibitor Not Indicated: LV Ejection Fraction >40%
- NYHA CHF Classification
NYHA CHF Classification Level: Class III - Symptoms w/ min exertion, interferes w/ nml daily activity (severe )
- ACC/AHA Stage
ACC/AHA Stage: Stage C: Symptomatic Heart Failure
--- NOTE | 2023-10-26 10:25 | W.PN.HOSP.TC ---
Addendum entered and electronically signed by Giancarlo Toscano MD 10/26/23 10:38:
time of discharge 38 minutes
Original Note:
Today's Communication/Plan
-
monitor vitals
see plan
dc to SNF if bed available; CM aware
now on PO lasix
TAVR eval outpatient
Assessment / Plan
Assessment / Plan
General: Not in acute distress
HEENT: Moist mucous membranes, PERRLA
Respiratory: Other (Rales mostly appreciated on the R. No wheezes / rhonchi.)
Cardiac: S1/S2, Regular Rhythm and Murmur (IV/ VICENTE)
GI: Non Tender, Non Distended, Normal Bowel Sounds and Other (Obese)
Musculoskeletal: improved pitting edema
Neuro: AO x 3 and Nonfocal/grossly intact
Acute HFpEF
Acute Hypoxemic Respiratory Failure secondary to the above
Severe Aortic Stenosis
Mild - Moderate Mitral Regurgitation
Was placed on BiPAP on admission. Now on rom air
Transition to p.o. Lasix
Catheterization / with elevated right-sided pressure. plan now for IV diuresis and TAVR evaluation outpatient
- Cardiology following
- Echo was done last month (09/26/23) and shows LVEF = 70-75% with diastolic dysfunction, severe and mild - moderate MR.
- No prior h//o CHF - though patient admits to recent increase in LE edema.
- Suspect that current episode is culmination of several factors including valvular heart disease, medication effects (Actos, amlodipine, Medrol), pain / hypertension, etc.
- Follow for continued clinical improvement and adjust med regimen as needed.
Hypertensive Emergency
- BP elevation exaggerated due to acute pain and likely contributed to acute pulm edema presentation.
- Was initially started on nitroglycerin, now off nitro drip
- Restart lisinopril, if blood pressure still high then amlodipine can be restarted
- Continue carvedilol.
- Adjust med regimen / add additional medications as needed for continued BP control.
DM-II
- Stable. Discontinue Actos and would remain off of this indefinitely.
- Follow glucose and cover with SSI as needed for now.
- Consider alternate oral medications on discharge.
- Patient would likely benefit from SGLT2 inhibitor, etc.
Hyponatremia
monitor
Renal insufficiency
Appears does have some component of CKD
Monitor
Hyperkalemia
resolved
monitor with diuresis
Low Back Pain
- Patient describes radicular pain with no apparent rash / lesions noted on exam.
- Continue efforts at pain control.
- PT / OT evaluations.
- X-ray without obvious compression fracture, etc.
- Consider MR for further evaluation if pain persist; pain has improved; no need for tramadol; can be controlled with lidocaine patch and tylenol
- Hold further Medrol doses.
Hyperparathyroidism
- Chronic hypercalcemia noted on labs with dx of hyperPTH.
- Not on any active treatment at this time.
- Follow for changes in labs, new symptoms, etc.
Mild hypercalcemia
Monitor
Morbid Obesity due to excess calories
- Affects all aspects of care.
- Encourage healthy diet and increased activity with goal of weight loss.
DVT Prophylaxis: Subcut Heparin
Code Status: DNR
Anticipated Discharge: Today
Subjective/Interval History
-
Date of Service: October 26, 2023
denies nausea
Objective Data
-
Labs:
Laboratory Results
10/26/23
05:29
WBC 6.4
Hgb 10.4 L
Hct 29.7 L
Plt Count 218
Sodium 133 L
Potassium 4.1
Chloride 100
Carbon Dioxide 26
BUN 25 H
Creatinine 1.4 H
Glucose 128 H
Calcium 11.3 H
Vital Signs:
Vital Signs
Temp Pulse Resp BP Pulse Ox
98.0 F 83 16 158/53 95
10/26/23 07:00 10/26/23 07:00 10/26/23 07:00 10/26/23 07:00 10/26/23 07:00
I&O
10/25/23 10/26/23 10/27/23
06:59 06:59 06:59
Intake Total 1670 / 1670 620 / 620
Output Total 1950 / 1949 1700 / 1700
Balance -280 / -280 -1080 / -1080
--- NOTE | 2023-10-26 10:37 | W.DCSUMMARY ---
Discharge Summary
Discharge Data
Date of Admission: 10/23/23
Date of Discharge: 10/26/23
-
Pending Results: No
Hospital Course
83-year-old female with past medical history of hypertension, severe aortic stenosis, diabetes mellitus, renal insufficiency, hyperparathyroidism, morbid obesity came to the hospital with acute hypoxemic respiratory failure secondary to acute
congestive heart failure with preserved ejection fraction exacerbation. Patient symptoms were likely thought was secondary to severe aortic stenosis. Patient went for cardiac catheterization on this hospitalization. Patient was seen by cardiology
throughout hospitalization. On cardiac catheterization patient heart pressures were consistent with fluid overload so patient was treated with IV diuresis. Given her severe aortic stenosis she was instructed to get TAVR evaluation outpatient. She
also had hypertensive emergency on admission and was started on nitro drip. Her blood pressure over time continue to improve. Patient was also evaluated by physical therapy who recommended SNF. Given her heart failure her pioglitazone was
discontinued. She also had low back pain your x-ray did not show any signs of compression fracture. Her pain over time continue to improve. Once patient symptoms continue to improve she was [facility] with
instructions to follow-up with all her physicians outpatient.
Discharge Plan
-
Patient Disposition: [facility]/SNF
Discharge Diagnosis/Procedures: Severe symptomatic aortic stenosis status post cardiac catheterization
Acute congestive heart failure with preserved ejection fraction
Suspect chronic kidney disease
Diet: Low Cholesterol and 2 Gram Sodium
Activity: As tolerated
Driving Restrictions: As prior to admission
Blood Work: PLEASE HAVE BLOOD WORK DRAWN (CBC AND CMP) ON 10/31/2023. THIS DOES NOT NEED TO BE FASTING. PLEASE HAVE RESULTS FAXED TO [phone].
Others Tests: A CT SCAN HAS BEEN SCHEDULED FOR YOU AT THE [facility] ON 11/10/2023. PLEASE REPORT TO THE OUTPATIENT INFUSION DEPARTMENT, [id number] IN THE [facility], AT 7:45AM. PLEASE DO NOT EAT OR DRINK ANYTHING AFTER 6:30AM. PLEASE BRING A LIST
OF YOUR MEDICATIONS WITH YOU WELL A SNACK FOR AFTER YOUR CT SCAN.
PLEASE CONTACT YOUR DENTIST FOR AN APPOINTMENT. YOU WILL REQUIRE DENTAL CLEARANCE PRIOR TO YOUR PROCEDURE
Instructions: *CBC Heart Failure Instructions
Stand Alone Forms: DC Instructions- Cath/EP Lab
Referrals:
Oneyda Gill CRNP [Specified Professional Personl] -
Adry Ahmadi MD [Family Provider] -
Angel Hawk MD [Active] - 02/01/24 3:00 pm (Cardiology followup appointment)
Jonathan Villalobos MD [Active] - 11/15/23 9:30 am
Prescriptions:
New
docusate sodium 100 mg Capsule
100 mg PO BID Qty: 0 0RF
furosemide 40 mg Tablet
40 mg PO DAILY Qty: 0 0RF
lidocaine 4 % Adhesive Patch,Medicated
1 patch topical DAILY Qty: 0 0RF
aspirin [Children's Aspirin] 81 mg Tablet,Chewable
81 mg PO DAILY Qty: 0 0RF
polyethylene glycol 3350 [HealthyLax] 17 gram Powder In Packet
17 g PO DAILY PRN (Reason: Constipation) Qty: 0 0RF
pantoprazole 40 mg Tablet,Delayed Release (Dr/Ec)
40 mg PO DAILY Qty: 0 0RF
Continued
atorvastatin 40 mg Tablet
40 mg PO DAILY
carvedilol 25 mg Tablet
25 mg PO BID
lisinopril 10 mg Tablet
10 mg PO DAILY
Changed
acetaminophen 500 mg Tablet
1,000 mg PO Q8H Qty: 0 0RF
Held
amlodipine 2.5 mg Tablet
2.5 mg PO DAILY
Hold Instructions: Restart if blood pressure greater than 140/90
Discontinued
omeprazole [Prilosec] 10 MG capsule,delayed release(DR/EC)
20 mg PO DAILY PRN (Reason: Heartburn)
pioglitazone [Actos] 30 mg Tablet
30 mg PO DAILY
prednisone 10 mg Tablets,Dose Pack
0 mg PO PER PKG DIR
Patient Comments:
started on Tuesday for back pain, pt unsure of doses, stopped taking the rest of her medication on Tuesday
Discharge Orders:
Discharge Patient (As Directed); Ordered 10/26/23
Ordered By: Giancarlo Toscano
Discharge Date and Time
Discharge Date/Time: 10/26/23 13:51
Print Language: UKRAINIAN
--- NOTE | 2023-10-26 11:40 | CM ---
MD entered order for discharge.
Spoke with Jeanie Castellano pt accepted and bed ready.
Spoke with patient she is ready for dc to [facility].
Pt requested ambulance . Medical nec form completed.
Pt requested CM call [facility]. [facility] in agreement with dc to [facility] via ambulance today.
[facility]
report [phone]
fax [phone]
PLAN To [facility]
[2023-10-26 12:08] LABS: Glucose - Point of Care 205 mg/dl (70-99)
[2023-10-26] MEDS: NOVOLOG FLEXPEN-LOW RESISTANCE 2 UNITS SC (12:08)
[2023-10-26] MEDS: PREVNAR 20 0.5 ML IM (12:16)
[2023-10-26 12:41] VITALS: BP 134/52
== END 2023-10-26 13:51 | DRG 286 ==
LOC: 3 WEST ACU 06:15
PROVIDERS: Hospitalist; Internal Medicine Cardiovascular Disease; ADMITTING PHYSICIAN Hospitalist; ATTENDING PHYSICIAN Internal Medicine; CONSULT PHYSICIAN Internal Medicine; EMERGENCY PHYSICIAN Emergency Medicine; FAMILY PHYSICIAN Internal Medicine
PROC: 5A09357 Assistance with Respiratory Ventilation, Less than 24 Consecutive Hours, Continuous Positive Airway Pressure (ICD-10-PCS; 2023-10-23)
PROC: 4A023N6 Measurement of Cardiac Sampling and Pressure, Right Heart, Percutaneous Approach (ICD-10-PCS; 2023-10-24)
PROC: 4A033BC Measurement of Arterial Pressure, Coronary, Percutaneous Approach (ICD-10-PCS; 2023-10-24)
PROC: B2111ZZ Fluoroscopy of Multiple Coronary Arteries using Low Osmolar Contrast (ICD-10-PCS; 2023-10-24)
PROC: 3E0234Z Introduction of Serum, Toxoid and Vaccine into Muscle, Percutaneous Approach (ICD-10-PCS; 2023-10-26)
DX: I13.0 Hypertensive heart and chronic kidney disease with heart failure and stage 1 through stage 4 chronic kidney disease, or unspecified chronic kidney disease (principal); I50.33 Acute on chronic diastolic (congestive) heart failure; J96.01 Acute respiratory failure with hypoxia; I16.1 Hypertensive emergency; J90 Pleural effusion, not elsewhere classified; E87.1 Hypo-osmolality and hyponatremia; Z68.41 Body mass index [BMI] 40.0-44.9, adult; I08.0 Rheumatic disorders of both mitral and aortic valves; I5A Non-ischemic myocardial injury (non-traumatic); M54.50 Low back pain, unspecified; N18.30 Chronic kidney disease, stage 3 unspecified; E11.22 Type 2 diabetes mellitus with diabetic chronic kidney disease; E78.00 Pure hypercholesterolemia, unspecified; E21.3 Hyperparathyroidism, unspecified; E66.01 Morbid (severe) obesity due to excess calories; K21.9 Gastro-esophageal reflux disease without esophagitis; E87.5 Hyperkalemia; K44.9 Diaphragmatic hernia without obstruction or gangrene; I25.10 Atherosclerotic heart disease of native coronary artery without angina pectoris; M19.90 Unspecified osteoarthritis, unspecified site; I27.22 Pulmonary hypertension due to left heart disease; I27.29 Other secondary pulmonary hypertension; M54.10 Radiculopathy, site unspecified; Z96.653 Presence of artificial knee joint, bilateral; Z66 Do not resuscitate; Z23 Encounter for immunization; Z11.52 Encounter for screening for COVID-19; Z88.6 Allergy status to analgesic agent; Z88.8 Allergy status to other drugs, medicaments and biological substances; Z82.49 Family history of ischemic heart disease and other diseases of the circulatory system; Z90.49 Acquired absence of other specified parts of digestive tract
CPT/HCPCS: 71045; 71275; 72110; 80048; 80053; 82962; 83036; 83735; 83880; 84443; 84484; 85025; 85027; 85379; 87070; 87811; 90677; 93005; 93456; 93571; 94640; 94660; 96374; 97163; 97167; 99291; C1769; C1894; G0009; Q9967

== ENCOUNTER → 2023-10-31 10:16 | Outpatient (REF) | payer OTHER, MEDICARE, SELFPAY ==
[2023-10-31 11:07] LABS: Hematocrit 27.4 % (37.0-47.0); Hemoglobin 9.5 g/dL (12.0-16.0); Mean Corp Hgb Conc. 34.7 g/dL (33.0-37.0); Mean Corpuscular Hgb 31.4 pg (27.0-31.0); Mean Corpuscular Volume 90.4 fL (81.0-99.0); Mean Platelet Volume 11.7 fL (7.4-10.4); Platelet Count 219 10^3/uL (130-400); Red Blood Cell Count 3.03 10^6/uL (4.20-5.40); White Blood Cell Count 7.5 10^3/uL (4.8-10.8)
[2023-10-31 11:17] LABS: ALT (SGPT) 72 U/L (0-35); AST (SGOT) 33 U/L (14-36); Albumin 3.4 g/dl (3.5-5.0); Alkaline Phosphatase 109 U/L (38-126); Blood Urea Nitrogen 27 mg/dl (7-17); Calcium 10.9 mg/dl (8.4-10.2); Carbon Dioxide 25 mmol/L (22-30); Chloride 99 mmol/L (98-107); Glucose 336 mg/dl (70-99); Sodium 131 mmol/L (135-145); Total Bilirubin 0.5 mg/dl (0.2-1.3); Total Protein 5.6 g/dl (6.3-8.2); eGFR 41.31
== END ==
LOC: OLABP 10:16
PROVIDERS: ATTENDING PHYSICIAN Family Medicine
DX: E87.1 Hypo-osmolality and hyponatremia (principal); N18.30 Chronic kidney disease, stage 3 unspecified; E87.5 Hyperkalemia; E83.52 Hypercalcemia
CPT/HCPCS: 36415; 80053; 82565; 85027

== ENCOUNTER 2023-11-10 07:37 | Outpatient (RCR) | payer MEDICARE, OTHER, SELFPAY ==
[2023-11-10 07:55] VITALS: BP 130/49
[2023-11-10] MEDS: NSS 500 IV (08:06)
[2023-11-10 12:31] VITALS: BP 127/51
== END 2023-11-10 15:09 | disposition home or self-care (01) ==
LOC: OID 07:37
PROVIDERS: ATTENDING PHYSICIAN Nurse Practitioner Adult Health; FAMILY PHYSICIAN Internal Medicine
DX: I35.0 Nonrheumatic aortic (valve) stenosis (principal); Z92.89 Personal history of other medical treatment
CPT/HCPCS: 96360; 96361

== ENCOUNTER → 2023-11-10 08:11 | Outpatient (REF) | payer OTHER, MEDICARE, SELFPAY | LOC: RAD 08:11 | PROVIDERS: ATTENDING PHYSICIAN Nurse Practitioner Adult Health | DX: I35.1 Nonrheumatic aortic (valve) insufficiency (principal) | CPT/HCPCS: 75572; Q9967 ==

== ENCOUNTER 2023-12-06 08:37 | Outpatient (RCR) | payer MEDICARE, OTHER, SELFPAY ==
[2023-12-06 08:40] VITALS: BP 134/44
[2023-12-06] MEDS: NSS 500 IV (09:00)
== END 2023-12-07 08:54 | disposition home or self-care (01) ==
LOC: OID 08:37
PROVIDERS: ATTENDING PHYSICIAN Nurse Practitioner Adult Health; FAMILY PHYSICIAN Internal Medicine
DX: I35.0 Nonrheumatic aortic (valve) stenosis (principal); Z98.890 Other specified postprocedural states
CPT/HCPCS: 96360; 96361

== ENCOUNTER → 2023-12-06 08:52 | Outpatient (REF) | payer MEDICARE, OTHER, SELFPAY | LOC: RAD 08:52 | PROVIDERS: ATTENDING PHYSICIAN Nurse Practitioner Adult Health; FAMILY PHYSICIAN Internal Medicine | DX: I35.0 Nonrheumatic aortic (valve) stenosis (principal) | CPT/HCPCS: 74174; Q9967 ==

== ENCOUNTER 2024-03-08 05:33 | Inpatient (IN) | payer MEDICARE, OTHER, SELFPAY ==
--- NOTE | 2024-03-02 11:10 | HPS.HSE ---
Family Physician
-
Family Physician: Adry Ahmadi
Supervisor [employer]: Anegl Hawk
Cardiac Surgeon: Jonathan Villalobos
Chief Complaint
-
Dyspnea on exertion
History of Present Illness
Ms. Oksana Pride is a very pleasant 83-year-old woman who presents today for preadmission testing in preparation for TAVR on 03/08. Her most recent echocardiogram from 09/26/2023 demonstrated severe aortic stenosis with peak/mean gradients of 93/52 mmHg
and KAELYN calculated at 0.7. She has trace aortic regurgitation. She has concurrent mild to moderate mitral regurgitation with mild mitral stenosis with a peak gradient across the mitral valve of 5 mmHg. Her LVEF is hyperdynamic at 70 to 75%. She has
stage II diastolic dysfunction. Cardiac catheterization was subsequently performed on 10/24/2023. This demonstrated right dominant coronary circulation with a nonocclusive/borderline 60% mid LAD lesion with an IFR of 0.90. She had severely elevated
filling pressures (PCWP was 24 mmHg at 93.7 kg). She had mild postcapillary PAH (WHO group 2). Her TAVR CT scan has was completed and Heart Team discussion had at [facility] meeting. Team agreed TAVR was appropriate treatment utilizing a 23mm S3 valve.
From a symptomatic standpoint, Ms. Pride states that her only true shortness of breath occurs when she is grocery shopping or bringing in groceries. However, she is not significantly active, and this could underrepresent her true symptomatology.
She also reports some episodes of lightheadedness, but no presyncope or syncope. Denies chest pain, palpitations, orthopnea, PND.
Reviewed pathophysiology of aortic stenosis with patient as well as the TAVR procedure. Risks of TAVR including bleeding, stroke and potential need for PPM reviewed with the patient. Patient will arrive to the hospital on 03/08/2024 at 0530. She will
take her aspirin prior to her arrival. She is aware she will receive a call next Tuesday to review medications and arrival time. Allowed for and answered questions.
Medical History
Past Medical History
Past Medical History: Reports GERD, HTN, Hypercholesterolemia, NIDDM, Valvular Disease (Severe , Trace AI, mild mitral stenosis, mild-moderate MR) and Other (h/o peptic ulcer, hyperparathyroidism, Osteoarthritis, DJD, colon polyps, obesity, CKD
stage 3)
Past Surgical History: Reports Gynocological, Orthopedic (Bilateral TKR) and Other (Appendectomy, Hysterectomy, Laproscopic choleycystectomy)
Social History
Tobacco: Non-smoker
Alcohol: None
Drug: None
Personal: Single
Living: Alone
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
Family History
Family History: CAD (Father 74yo, Mother 73yo)
Allergies / Home Medications
Allergies reflects when Allergies were last updated in [employer].
Home Medications with original date entered in [employer]
Allergy/Medication List:
Allergies:
Sulindac
NSAIDS
Medications:
Aspirin Adult Low Dose(Aspirin) 81 MG Tablet Delayed Release 1 tablet Orally Once a day
Coreg(Carvedilol) 25 MG Tablet 1 tablet with food Oral Twice a Day
Docusate Sodium 100 MG Capsule 1 capsule Orally bid as needed
Furosemide 40 MG Tablet 1 tablet Orally Once a day
HealthyLax(Polyethylene Glycol 3350) 17 GM Packet 1 packet mixed with 8 ounces of fluid Orally Once a day as needed
Lidocaine 4 % Patch 1 patch as needed Externally Once a day as needed
Lipitor 40 MG Tablet 1 tablet Orally Once a day
Lisinopril 10 MG Tablet 1 tablet Orally Once a day
Pantoprazole Sodium 40 MG Tablet Delayed Release 1 tablet Orally Once a day as needed
Tramadol HCl 50 MG Tablet 1 tablet as needed Orally every 12 hours
Review of Systems
-
History Source: Patient
Constitutional: Reports Fatigue
EENT: Reports No Symptoms
Respiratory: Reports No Symptoms; Denies Cough, Hemoptysis or Trouble Breathing
Cardiac: Reports No Symptoms; Denies Chest Pain, Palpitations or Syncope
Abdomen/GI: Reports Constipated (uses stool softener and laxative as needed); Denies Abdominal Pain, Nausea or Vomiting
: Reports No Symptoms; Denies Dysuria, Urgency or Bleeding
Musculoskeletal: Reports Edema (Chronic bilateral LE- right >left)
Skin: Reports No Symptoms
Neurological: Reports No Symptoms; Denies Headache or Weakness
Endocrine: Reports No Symptoms
Hematologic/Lymphatic: Reports No Symptoms; Denies Bleeding or Bruising
Psych: Reports No Symptoms and Calm
Physical Exam
Physical Exam
General: Well Developed, Well Nourished, No Apparent Distress, Comfortable and Obese
HEENT: NormoCephalic, Moist mucous membranes and PERRLA
Respiratory: Clear and Non Labored Respirations; No Wheezes, Rales or Rhonchi
Cardiac: S1/S2, Regular Rhythm, Murmur (Grade III/ systolic murmur) and Peripheral Edema (+2 pitting bilateral LE edema)
Breast: Deferred by me
GI: Soft, Non Tender, Non Distended and Normal Bowel Sounds
Rectal: Deferred by Provider
Genito-urinary: Deferred by me
Musculoskeletal: Edema, Left Lower Extremity and Edema, Right Lower Extremity
Skin: Warm and Dry; No Ulcers
Neuro: AO x 3 and Nonfocal/grossly intact
Psych: Calm and Intact Judgment/Insight
Data Reviewed
-
Diagnostic Radiology: Report Reviewed by me (No acute pulmonary process)
CT Scan: Report Reviewed by me (confirmed valve size- 23mm S3) and Discussed with Physician
Medical Tests (Nuc Med, Echo, EKG etc): Report Reviewed by me (Echocardiogram, EKG- sinus dalila, no conduction issues)
Lab Data: Labs Reviewed by me
Old Records: Reviewed (office consult notes)
Impression/Plan
-
IMPRESSION:
Severe Symptomatic Aortic Stenosis
PLAN:
-TF-TAVR utilizing a 23mm S3 valve
-Continue ASA daily post TAVR
-Follow up echocardiogram POD #1/#30
-Cardiac rehab consult
Laboratory Results
-
Laboratory Data
03/02/24 12:05
03/02/24 12:05
PT 14.3 Sec (11.4-14.6) 03/02/24 12:05
INR 1.13 03/02/24 12:05
APTT 28.8 Sec (23.4-35.0) 03/02/24 12:05
Total Bilirubin 0.9 mg/dl (0.2-1.3) 03/02/24 12:05
Direct Bilirubin 0.2 mg/dl (0.0-0.4) 03/02/24 12:05
AST 22 U/L (14-36) 03/02/24 12:05
ALT 21 U/L (0-35) 03/02/24 12:05
Alkaline Phosphatase 112 U/L (38-126) 03/02/24 12:05
Total Protein 6.1 g/dl (6.3-8.2) L 03/02/24 12:05
Albumin 4.0 g/dl (3.5-5.0) 03/02/24 12:05
[2024-03-02 13:26] LABS: % Basophils 0.5 % (0-2); % Eosinophils 7.3 % (0-6); % Immature Granulocytes 0.5 % (0-0.5); % Lymphocytes 18.8 % (20.5-51.1); % Monocytes 8.2 % (1.7-9.3); % Neutrophils 64.7 % (42.2-75.2); Absolute Eosinophils 0.4 10^3/uL (0-0.7); Absolute Lymphocytes 1.1 10^3/uL (1.2-3.4); Absolute Monocytes 0.5 10^3/uL (0.1-0.6); Absolute Neutrophils 3.7 10^3/uL (1.4-6.5); Hematocrit 30.9 % (37.0-47.0); Hemoglobin 10.7 g/dL (12.0-16.0); Mean Corp Hgb Conc. 34.6 g/dL (33.0-37.0); Mean Corpuscular Hgb 31.2 pg (27.0-31.0); Mean Corpuscular Volume 90.1 fL (81.0-99.0); Mean Platelet Volume 12.2 fL (7.4-10.4); Nucleated Red Blood Cells % 0 %; Platelet Count 238 10^3/uL (130-400); Red Blood Cell Count 3.43 10^6/uL (4.20-5.40); Red Cell Dist. Width 12.5 % (11.5-14.5); White Blood Cell Count 5.8 10^3/uL (4.8-10.8)
[2024-03-02 13:39] LABS: ALT (SGPT) 21 U/L (0-35); AST (SGOT) 22 U/L (14-36); Alkaline Phosphatase 112 U/L (38-126); Blood Urea Nitrogen 21 mg/dl (7-17); Calcium 11.2 mg/dl (8.4-10.2); Carbon Dioxide 25 mmol/L (22-30); Chloride 99 mmol/L (98-107); Direct Bilirubin 0.2 mg/dl (0.0-0.4); Glucose 289 mg/dl (70-99); Potassium 4.1 mmol/L (3.5-5.1); Sodium 137 mmol/L (135-145); Total Bilirubin 0.9 mg/dl (0.2-1.3); Total Protein 6.1 g/dl (6.3-8.2); eGFR 45.19
[2024-03-02 13:53] LABS: Urine Albumin Negative (Neg - Trace); Urine Bilirubin Negative (Negative); Urine Character Clear (Clear); Urine Color Straw; Urine Glucose 3+ (Negative); Urine Ketone Negative (Negative); Urine Leukocyte 1+ (Negative); Urine Nitrite Negative (Negative); Urine Occult Blood Negative (Negative); Urine Specific Gravity 1.015 (<1.030); Urine Urobilinogen Negative (Neg - 1+)
[2024-03-02 13:55] LABS: INR 1.13; PT 14.3 Sec (11.4-14.6)
[2024-03-02 13:56] LABS: APTT 28.8 Sec (23.4-35.0)
[2024-03-02 14:11] LABS: Urine Bacteria Few (Negative); Urine Red Blood Cell 0-2 /HPF (0-2); Urine Squamous Cell >30 /LPF (Few)
[2024-03-02 14:27] LABS: Glycohemoglobin (HgbA1c) 8.4 % (4.0-5.6)
--- NOTE | 2024-03-02 15:01 | CM ---
Met with Mrs. Pride and her nephew in [facility]. She states prior to admission she resides alone in a [facility]ment. She states she has been there for nine years. She states prior to admission she ambulates with a rollator. She states she
has a rollator, Walker, Single point cane and shower chair at home. She states she is independent with ADL's at home. She states she has a prescription plan and uses [facility]. The discharge plan is to return home with a home visit by the
Cardiothoracic Transitional Care Nurse when medically stable.
We reviewed pre-op and post-op routines. We reviewed the shower instructions. She has the soap, written instructions and the TAVR Educational Booklet. We reviewed restrictions including driving and lifting restrictions. We discussed a home visit
by the Cardiothoracic Transitional Care Nurse. She is agreeable to a home visit. The plan is for TAVR on February.
[2024-03-08] VITALS (21 sets, daily range): BP systolic 126–176; BP diastolic 31–52; BMI 35.2
--- NOTE | 2024-03-08 06:10 | PTCARENOTE ---
Pt rec'd from home, ambulated to unit via own rolling walker. gait steady no c/o sob upon arrival. Pt clipped and washed with 4% chlorhexidine wipes. 20 g placed in RAC. Adm hx taken and recorded.
[2024-03-08 06:37] LABS: Glucose - Point of Care 198 mg/dl (70-99)
[2024-03-08] MEDS: ANCEF 10 IV (07:12)
[2024-03-08 08:17] LABS: ACT-LR - POC 253 Seconds (116-155)
[2024-03-08 08:25] LABS: ACT-LR - POC 318 Seconds (116-155)
--- NOTE | 2024-03-08 08:36 | W.CVOR.SURPR ---
CVOR Surgeon Immed Pre Op
-
I have examined this patient prior to performance of the scheduled procedure.
The patient's condition is unchanged from the time of the dictated/written History and
Physical and the patient is able to undergo the scheduled procedure.
--- NOTE | 2024-03-08 08:36 | W.IMMPOSTOP ---
Surgical Immed Post Op Note
-
[id number]
STRUCTURAL HEART PROCEDURE NOTE: TAVR
Preoperative Dx:
Severe aortic stenosis w/ P/M: 93/52, KAELYN 0.7, Industrial Diamond Polisher 4.83, trace AI
[id number] MR
HLD/HTN
CKD III
Hyperparathyroidism
Hx of GERD/PUD
DM II
OA
Obesity (BMI 35.2)
Postoperative Dx:
Same
Sbxxs-vm-[id number] combined systolic & diastolic CHF w/ elevated LVEDP (27mmHg)
Procedures:
1) L CFV access w/ U/S and fluoroscopic guidance, micropuncture technique, 6Fr sheath placement
2) L SUPERVISOR POLICY CHANGE CLERKS access w/ tactile, U/S, and fluoroscopic guidance, micropuncture technique, limited angiography, 6Fr sheath placement
3) Placement of temporary RV pacing wire w/ threshold testing
4) Placement of pigtail catheter in RCC w/ limited aortography & confirmation of co-planar valve deployment angles
5) R SUPERVISOR POLIC[employer] CHANGE CLERKS access w/ tactile, U/S, and fluoroscopic guidance, micropuncture technique, removal of access; manual hold
6) Re-access of R SUPERVISOR POLIC[employer] CHANGE CLERKS w tactile, U/S, and fluoroscopic guidance, micropuncture technique, limited angiography, 6Fr sheath placement
7) 8Fr dilator placement; perclose placement x 2 into R SUPERVISOR POLICY CHANGE CLERKS, 8Fr sheath placement
8) Placement of Rincno E-sheath via R SUPERVISOR POLICY CHANGE CLERKS access - systemic heparinization
9) Wire purchase across stenotic AV (AL-1, soft-tip straight, LVEDP assessment, extrastiff wire)
10) R TF TAVR w/ placement of 23mm DIPTI 3 valve
11) Completion aortography
12) Completion TTE (mean gradient 7mmHg, trace AI)
13) Removal of valve delivery system & Rincon E-sheath w/ R SUPERVISOR [employer] CHANGE CLERKS mgmt w/ perclose sutures x 2; manual pressure
14) Completion R ileofemoral angiography
15) Removal of temporary pacing wire
16) Removal of L SUPERVISOR [employer]IC[employer] CHANGE CLERKS 6Fr sheath w/ mgmt w/ 6Fr angioseal; manual pressure - protamine
17) Removal of L CFV 6Fr sheath w/ mgmt w/ manual pressure
Truck Operator:
Dr. Juan M Yuen
Cardiac Surgeon:
Dr. Jonathan Villalobos
Anesthesia:
MAC w/ local to B/L groins
Complications:
None
Implants:
Rincon [employer]esciences, DIPTI 3; 23mm; SN: [id number]
Perclose x 2
6Fr angioseal x 1
Cath Data:
Start: 0740hrs, Deploy: 0818hrs, End: 0833hrs
FT: 7.8min, mGy: 188.83, DAP: 21.0340, Contrast: 51
Post-TTE: mean gradient 7mmHg, trace AI
Condition:
Stable/guarded to recovery
--- NOTE | 2024-03-08 08:43 | W.PN.UPDATE ---
Update Note
Progress Note Update
Reviewed Ms. Pride with the heart team in the [facility] preTAVR meeting and confirmed a 23mm S3 via right transfemoral access. Patient will resume aspirin post TAVR. LVEDP 27mmHg. #23mm S3 (serial# [id number]) successfully deployed via right transfemoral
access. Post implant MG 7 mmHg.
--- NOTE | 2024-03-08 08:45 | ITS.CL.TAVR ---
Elevated Work Platform Operator - TAVR Report
TAVR PRocedure
Procedure Report:
TRANSCATHETER AORTIC VALVE REPLACEMENT REPORT
Date: 03/08/2024
Referring physician: Dr. Parth Hawk
Preop diagnosis: severe aortic stenosis
Postop diagnosis: severe aortic stenosis s/p transfemoral TAVR
Procedure: Transcatheter aortic valve replacement (TAVR) using a #23 Rincon EMILY S3 Ultra.
Operators: Brad Yuen MD, PhD (cardiology), Jonathan Villalobos MD (CT surgery)
Findings: Severely calcified and stenotic aortic valve
Anesthesia: Conscious sedation was provided by the anesthesia staff
Estimated blood loss: Negligible
Complications: None
Condition: Stable
Procedure:
The patient was brought to the cardiac laborer carpentry dock after consent and was prepped and draped in standard sterile fashion. Conscious sedation was provided by the anesthesia staff. After a 'Time Out,' the left common femoral artery and the left common
vein were accessed using a modified Seldinger technique with a micropuncture kit under ultrasound guidance. A 6 Icelandic sheath was placed in the left femoral vein. Angiography performed through the micropuncture sheath confirmed satisfactory
arterial placement in the left common femoral artery. The micropuncture sheath was replaced with a 6Fr sheath in the left CASH MANAGEMENT SPECIALIST. A temporary pacing wire was advanced through the left femoral vein and into the right ventricle. The pacemaker
demonstrated good capture and was set to back up. A 5Fr pigtail catheter was advanced through the left femoral sheath and seated in the right coronary cusp. Angiography confirmed co-planar angles. Next, the right common femoral artery was accessed
using a modified Seldinger technique with a micropuncture kit under ultrasound guidance. Angiography through the micropuncture kit confirmed satisfactory arterial placement in the right common femoral artery. The right CASH MANAGEMENT SPECIALIST was dilated with an 8FR
dilator and preclosed with two Perc-Close devices. An 8Fr sheath was placed in the RCFA.
An AL-1 catheter was advanced through the 8Fr sheath, the J wire was exchanged for an Amplatz Extrastiff wire and the catheter and the 8 Fr sheath was removed. The 14 Fr Rincon E-sheath was inserted over the wire and into the descending aorta.
Heparin 7000 units was given. The EMILY S3 was prepared on the back table. Orientation was confirmed by both physicians. The AL-1 catheter was re-advanced through the E-sheath to the level of the ascending aorta. The Extrastiff wire was removed
and a soft tip straight wire was advanced through the AL-1. The straight tip wire was used to cross the aortic valve and the catheter was advanced into the left ventricle. The straight wire was removed and an Amplatz Extrastiff wire with curved
proximal end was advanced through the catheter and into the left ventricle. The wire was seated in the apex and the catheter was removed. ACT was checked and confirmed to be > 250 seconds.
The valve was advanced over the Extrastiff wire and into the descending aorta. The balloon was withdrawn and the valve was mounted on the balloon. The valve was advanced over the aortic arch and into the aortic valve annulus. The pusher device
was withdrawn to allow for balloon expansion. Low volume aortography confirmed good position of the valve. The valve was deployed during rapid ventricular pacing. Echocardiography and aortography confirmed a good result with mild wire-associated
aortic valve insufficiency and a 7 mmHg mean gradient. The valve deployment system was removed. The Rincon E sheath was then removed and hemostasis obtained with the two Perc-Close sutures. Final angiography demonstrated no evidence of ileofemoral
dissection/perforation and good runoff below the common femoral artery. The pacemaker and the pigtail catheter were removed. The left femoral artery sheath was removed using a 6Fr Angioseal. The left femoral venous sheath was removed and manual
pressure was applied with excellent hemostasis.
Radiation
Dose (mGy): 188.83
DAP (cm2.Gy): 21.0340
Fluoroscopy time (minutes): 7.8
Conclusions:
1. Successful placement of #23 Emily S3 Ultra aortic valve via right transfemoral approach with no acute complications
2. Acute on chronic heart failure with elevated filling pressures LVEDP = 27 mmHg
Signed: Brad Yuen MD, PhD
Copy to: Dr. Parth Hawk MD (grapple skidder operator); Dr. Adry Ahmadi (PCP)
[2024-03-08] MEDS: COREG PO (09:35)
[2024-03-08] MEDS: LOW STRENGTH ASPIRIN PO (09:37)
[2024-03-08] MEDS: ANCEF IV (09:38)
--- NOTE | 2024-03-08 10:37 | CM ---
pt in OR today for TAVR, cm following
--- NOTE | 2024-03-08 10:48 | PTCARENOTE ---
Addendum entered by Yamileth Gomez RN 03/08/24 11:02:
Retook patients temperature-- 96.0. Called SPD for armen lyon.
Original Note:
Received patient @ 1008 from labor utilization superintendent post TAVR. Patient resting and drowsy, but oriented and awakes to voice. Right groin site clean, dry, and intact-- soft with no hematoma. Large skin tear above groin site. Left groin site clean, dry, and
intact-- soft with no hematoma. Small skin tear above groin site. BP 148/37, SB 50s, 94% on room air, temp 96.1-- warming blankets applied. Neuro check: pupils 2mm each, brisk reaction to light, normal upper and lower extremity strength. Educated
patient on activity restriction post TAVR. Patient verbalized understanding, but drowsy. Will reeducate. Call cotton within reach.
[2024-03-08] MEDS: ROXICODONE 5 MG PO (11:12)
--- NOTE | 2024-03-08 11:48 | PTCARENOTE ---
Addendum entered by Yamileth Gomez RN 03/08/24 12:09:
Patient called RN at 1202 because was too warm. Temp 97.4-- turned device to lower setting from medium. Discussed leaving on for 30 minutes longer to ensure patient's temperature is more stable. Patient verbalized understanding. Call cotton left
within reach.
Original Note:
Meg hugger (air based system) initiated at 1132. BP 169/51, SB 50s, 98% on room air, 96.0F axillary temp. Patient is awake and alert. Neurological status is stable. Skin has skin tears above both groin sites-- right side larger than left. Femoral
groin sites on left and right from TAVR procedure earlier in the morning. Patient is tolerating treatment. Educated patient on need for warming device. Patient verbalized understanding. Call cotton within reach.
[2024-03-08] MEDS: TYLENOL 650 MG PO (14:37)
[2024-03-08] MEDS: LIPITOR 40 MG PO (14:38)
[2024-03-08] MEDS: ANCEF 5 IV (14:38)
[2024-03-08] MEDS: FLUSH (NSS) 1 FLUSH IV (14:39)
[2024-03-08] MEDS: COREG 25 MG PO (20:20)
--- NOTE | 2024-03-09 00:31 | PTCARENOTE ---
Pt. received at change of shift. VSS, NSR-sinus dalila on tele with HR 50s-60s. Pt. AAOx3, neuro status intact. L groin site c/d/i, R groin site with small amount of drainage noted on dressing, unchanged from previous shift. B/L sites with no
hematoma noted. Pt educated to ring for assistance as needed to get OOB to bedside commode. Purewick in place at HS for stress incontinence. No complaints of pain at this time. Can make needs known. Call cotton within reach.
[2024-03-09 03:55] VITALS: BP 170/38
[2024-03-09 04:01] VITALS: BP 164/43
[2024-03-09] MEDS: TYLENOL 650 MG PO (04:58)
[2024-03-09 05:02] VITALS: BP 155/75
[2024-03-09 05:22] LABS: Blood Urea Nitrogen 23 mg/dl (7-17); Calcium 10.6 mg/dl (8.4-10.2); Carbon Dioxide 20 mmol/L (22-30); Chloride 104 mmol/L (98-107); Estimated Creatinine Clearance 34 ml/min; Glucose 193 mg/dl (70-99); Potassium 4.5 mmol/L (3.5-5.1); Sodium 135 mmol/L (135-145); eGFR 45.19
[2024-03-09 05:30] LABS: Hematocrit 29.3 % (37.0-47.0); Hemoglobin 10.3 g/dL (12.0-16.0); Mean Corp Hgb Conc. 35.2 g/dL (33.0-37.0); Mean Corpuscular Hgb 32.4 pg (27.0-31.0); Mean Corpuscular Volume 92.1 fL (81.0-99.0); Mean Platelet Volume 11.7 fL (7.4-10.4); Platelet Count 160 10^3/uL (130-400); Red Blood Cell Count 3.18 10^6/uL (4.20-5.40); Red Cell Dist. Width 12.3 % (11.5-14.5); White Blood Cell Count 7.7 10^3/uL (4.8-10.8)
[2024-03-09] MEDS: ZOFRAN 4 MG IV (05:49)
--- NOTE | 2024-03-09 06:13 | W.PN.CT ---
Addendum entered and electronically signed by Jonathan Villalobos MD 03/09/24 09:01:
I saw and examined the patient.
The PA's note was reviewed and I agree with the note.
Comment:
Postop day #1 status post right transfemoral TAVR with placement of number 23 mm DIPTI 3 valve
Doing well
Echocardiogram today
Continue home medications including aspirin
Out of bed I-S ambulate
Discharge planning for later today
Original Note:
Today's Communication / Plan
-
-pod #1
-no issues overnight
-nsr 60s overnight, brief SVT. No dalila or pauses
-Echo today
-current meds (ASA, Lipitor, Coreg, Zestril, Lasix)
-encourage IS, OOB
-possible d/c
Assessment / Plan
-
- Severe symptomatic - s/p R TF TAVR w/ placement of 23mm DIPTI 3 valve on 03/08/24, pod #1
- Htzvv-kj-yzakluc combined systolic & diastolic CHF w/ elevated LVEDP (27mmHg)
- Post-TTE: mean gradient 7mmHg, trace AI
- Cium-zh-pbzcldpj MR
- HLD/HTN
- CKD III
- Hyperparathyroidism
- Hx of GERD/PUD
- DM II
- OA
- Class 2 Obesity (BMI 35.2)
- b/l TKR
- Hx lap cholecystectomy
Discussed patient care with: Nursing and Care Team
Subjective
Procedure
- s/p R TF TAVR w/ placement of 23mm DIPTI 3 valve on 03/08/24
-
Date of Service: March 09, 2024
Objective Data
-
PT 14.3 Sec (11.4-14.6) 03/02/24 12:05
INR 1.13 03/02/24 12:05
APTT 28.8 Sec (23.4-35.0) 03/02/24 12:05
Vital Signs
Vital Signs
Temp Pulse Resp BP Pulse Ox
98.3 F 59 18 126/40 94
03/08/24 22:28 03/08/24 22:29 03/08/24 22:28 03/08/24 22:29 03/08/24 22:29
CT Intake/Output/Weight
03/08/24 03/08/24 03/09/24
06:59 18:59 06:59
Intake Total 850 / 850
Balance 850 / 850
SaO2: 94
Physical Exam
-
General: Awake (hard of hearing) and AOx3
Cardiovascular: Regular rate & rhythm, Murmur (1/6 systolic @ L sternal border) and No Rub
Respiratory: Decreased Breath Sounds
Incision: Other (groins are cdi, soft, nontender, no hematoma b/l)
Extremities: Edema +1 (DPs by Doppler b/l, warm b/l)
Data Reviewed
-
Lab Results: Results Reviewed
Medications: Active Meds Reviewed
Chest X-Ray: Report Reviewed and Image Reviewed
ECG: Report Reviewed and Image Reviewed
[2024-03-09] MEDS: LASIX 40 MG PO (08:31)
[2024-03-09] MEDS: COREG 25 MG PO (08:31)
[2024-03-09] MEDS: LIPITOR 40 MG PO (08:31)
[2024-03-09] MEDS: LOW STRENGTH ASPIRIN 81 MG PO (08:31)
[2024-03-09 08:32] VITALS: BP 151/45
[2024-03-09] MEDS: ZESTRIL 10 MG PO (09:30)
--- NOTE | 2024-03-09 10:31 | W.PN.CD ---
Today's Communication / Plan
-
doing well post tavr, discharge pending tte
Impression / Plan
-
Ms. Pride is a 84 year old woman with symptomatic severe aortic stenosis status post transfemoral TAVR 03/08/24 with #23 Emily valve without complication.
# s/p TAVR
- doing well, groin site soft, no events on telemetry, feeling well
- cont. asa
- ambulate
- discharge pending TTE
# HTN
- cont. home coreg, lisinopril
# acute on chronic diastolic heart failure
- EDP 27 mmHg pre-TAVR
- cont. home lasix
Physical Exam
Vital Signs/Labs
Vital Signs
Temp Pulse Resp BP Pulse Ox
36.7 C 59 16 126/40 95
03/09/24 08:34 03/08/24 22:29 03/09/24 08:34 03/08/24 22:29 03/09/24 08:34
03/08/24 03/09/24 03/10/24
06:59 06:59 06:59
Actual Weight 81.8 kg
03/09/24 05:23
03/09/24 04:18
PT 14.3 Sec (11.4-14.6) 03/02/24 12:05
INR 1.13 03/02/24 12:05
APTT 28.8 Sec (23.4-35.0) 03/02/24 12:05
Physical Exam
Constitutional: No acute distress and Comfortable
Cardiovascular: Rhythm & rate is regular, Pedal edema is absent, JVD pressure is normal, Systolic murmur absent and Diastolic murmur absent
Respiratory: Respiratory effort normal and Lungs clear to auscul.
Neuro/Psych: Alert, Oriented and AO x 3
Other: Cath Site
soft
Data Reviewed
-
Date of Service: March 09, 2024
[2024-03-09 11:25] VITALS: BP 116/42
--- NOTE | 2024-03-09 11:33 | CM ---
dc plan remains home when medically stable and f/u visit with CT transitional care nurse
--- NOTE | 2024-03-09 13:54 | W.DCSUMMARY ---
Discharge Summary
Discharge Data
Date of Admission: 03/08/24
Date of Discharge: 03/09/24
-
Pending Results: No
Hospital Course
Patient is a 84-year-old female electively admitted to [facility] for TAVR procedure. Past medical history significant for aortic stenosis, coronary artery disease, hypertension, hyperlipidemia, GERD, osteoarthritis, type 2 diabetes
mellitus, CKD 3, obesity with BMI of 38, bilateral total knee replacements and history of lap gladys.
On 03/08/2024 patient was electively admitted to [facility]. Later that morning she was brought to the cardiac [facility] where she underwent a right transfemoral TAVR with a #23 DIPTI 3 valve. Postprocedure EKG showed sinus bradycardia.
Echo performed immediately postprocedure showed normal LV function with peak and mean gradients of 13/7 mmHg. There was trace to mild AI. Patient tolerated procedure well and was returned to the IVU in hemodynamically stable condition. She did
not require any inotropic support or did not require pacing. Her first night in the IVU was uneventful. The following morning she continued to maintain sinus rhythm. Chest x-ray was essentially clear. Her labs on postoperative day 1 were as
follows hemoglobin 10.3 hematocrit 29.3 white blood cell count 7.7 and platelets 160 her BUN was 23 and creatinine 1.2. She was felt to be stable for discharge. She was given a full set of discharge instructions and will be followed by her
ledger poster. She was also given appointment for a echocardiogram in 30 days. Echo at time of discharge showed normal LV function with ejection fraction of 60%. Peak and mean gradients were 29/16 mmHg. This study also showed trace AI.
Vital signs at time of discharge she was afebrile. Heart rate was 60 regular. Sinus rhythm on telemetry blood pressure 116/45 and O2 sat on room air was 96%.
She was given a full set of discharge instructions and will restart all home medications as taken on admission. She was instructed to take Tylenol as needed for mild pain.
Discharge Plan
-
Patient Disposition: Home (Routine Discharge)
Discharge Diagnosis/Procedures: TF-TAVR
Condition: Fair
Diet: Low Fat, Low Cholesterol and 2 Gram Sodium
Activity: As tolerated and No strenuous activity
Driving Restrictions: No driving for 1 week
Bathing Restrictions: OK to Shower
Others Tests: 30 Day Follow Up Echocardiogram: 04/09/2024 at 11:20am at [facility]
Other Services: Cardiac Rehab
Wound Care: Please do not apply lotions, creams or powders to groin areas. Please monitor for increased pain, swelling, redness or drainage. Notify your doctor if any occur.
Specialty Instructions: Weigh Daily- Call MD for wt gain/loss 3 lbs overnight/5 lbs in 1 week
Referrals:
CT Transitional Care Nurse [Outside]
(
The Cardiothoracic Transitional Care Nurse will call you to set up a visit in 1-2 days.)
Hollie Macdonald CRNP [Specified Professional Personl] - 04/11/24 9:20 am
Adry Ahmadi MD [Family Provider] -
Additional Discharge Medication Instructions: New rx. tylenol prn mild pain
Prescriptions:
New
acetaminophen 325 mg Tablet
650 mg PO Q6HPRN PRN (Reason: MITCHELL, mild pain, or fever >101F) Qty: 0 0RF
Continued
atorvastatin 40 mg Tablet
40 mg PO DAILY
carvedilol 25 mg Tablet
25 mg PO BID
lisinopril 10 mg Tablet
10 mg PO DAILY
tramadol 50 mg Tablet
50 mg PO BID PRN (Reason: PAIN)
furosemide 40 mg Tablet
40 mg PO DAILY Qty: 0 0RF
aspirin [Children's Aspirin] 81 mg Tablet,Chewable
81 mg PO DAILY Qty: 0 0RF
Discharge Orders:
Discharge Patient (As Directed); Ordered 03/09/24
Ordered By: Raleigh Kingsley
Discharge Date and Time
Print Language: SYRIAC
[2024-03-09 15:06] VITALS: BP 155/38
--- NOTE | 2024-03-09 17:30 | PTCARENOTE ---
Pt received this am with no c/o of chest pain or sob. Assisted oob to the BR and the chair with 1 assist and the walker. Room air sat 95%. Bilateral groin site dressing dry and intact with no hematoma.
--- NOTE | 2024-03-09 17:30 | PTCARENOTE ---
Pt discharged to home with her niece. Discharge instructions given and reviewed with pt and her niece. Pt verbalized complete understanding and all questions answered.
== END 2024-03-09 17:48 | disposition home or self-care (01) | DRG 266 ==
LOC: IVU 05:33
PROVIDERS: Physician Assistant Surgical; ADMITTING PHYSICIAN Thoracic Surgery (Cardiothoracic Vascular Surgery); FAMILY PHYSICIAN Internal Medicine; OTHER PHYSICIAN Student in an Organized Health Care Education/Training Program
PROC: 02RF38Z Replacement of Aortic Valve with Zooplastic Tissue, Percutaneous Approach (ICD-10-PCS; 2024-03-08)
DX: I08.0 Rheumatic disorders of both mitral and aortic valves (principal); Z00.6 Encounter for examination for normal comparison and control in clinical research program; I50.43 Acute on chronic combined systolic (congestive) and diastolic (congestive) heart failure; I13.0 Hypertensive heart and chronic kidney disease with heart failure and stage 1 through stage 4 chronic kidney disease, or unspecified chronic kidney disease; I47.10 Supraventricular tachycardia, unspecified; R00.1 Bradycardia, unspecified; I25.10 Atherosclerotic heart disease of native coronary artery without angina pectoris; E78.00 Pure hypercholesterolemia, unspecified; K21.9 Gastro-esophageal reflux disease without esophagitis; E11.22 Type 2 diabetes mellitus with diabetic chronic kidney disease; E21.3 Hyperparathyroidism, unspecified; N18.30 Chronic kidney disease, stage 3 unspecified; M19.90 Unspecified osteoarthritis, unspecified site; E66.9 Obesity, unspecified; Z68.35 Body mass index [BMI] 35.0-35.9, adult; Z87.11 Personal history of peptic ulcer disease; Z79.82 Long term (current) use of aspirin
CPT/HCPCS: 93308; 33361; 36415; 71045; 71046; 80048; 80053; 81003; 81015; 82248; 82962; 83036; 85025; 85027; 85347; 85610; 85730; 86850; 86900; 86901; 86920; 87070; 87086; 93005; 93321; 93325; C1760; C1769; C1894; Q9967

== ENCOUNTER → 2024-04-09 10:50 | Outpatient (REF) | payer MEDICARE, OTHER, SELFPAY | LOC: RCS 10:50 | PROVIDERS: ATTENDING PHYSICIAN Internal Medicine Cardiovascular Disease; FAMILY PHYSICIAN Internal Medicine | DX: I35.0 Nonrheumatic aortic (valve) stenosis (principal) | CPT/HCPCS: 93306 ==

== ENCOUNTER 2024-05-04 19:58 | Inpatient (IN) | payer MEDICARE, OTHER, SELFPAY ==
[2024-05-04 13:58] VITALS: BP 163/73
--- NOTE | 2024-05-04 16:38 | ED.MUSCINJ ---
HPI-Injury
General
Chief Complaint: Fall
Source: patient
Exam Limitations: none
Time Seen by Provider: 05/04/24 16:24
Nursing documentation reviewed up to this point in time: agreed with
History of Present Illness-Injury
Initial Injury comments:
84 yo female w h/o CHF, CAD, HTN, HLD,GERD, CKD, presents after a fall in her apt. at [employer]. States she at 6 a.m. she fell forward out of her electric reclining chair onto her hands and knees onto carpeted floor. States she laid on floor until
1 p.m. when security finally came and opened her door. She denies hitting head, has pain left side of mid back. Has no bony pain of extremities, neck or back. Denies UTI symptoms
Past History
Past History
ED Past Medical History: GERD, HTN, Hypercholesterolemia and NIDDM
ED Past Surgical History: Gynecological (Partial hysterectomy) and Orthopedic (Left knee arthroscopy, bilateral total knee replacement)
Social History
Tobacco: Non-smoker
Alcohol: None
Personal: Single
Living: alone
Employment: Retired
Family History
Family History: Other (Noncontributory)
Review of Systems
Review of Systems
Allergies reviewed?: Yes
All Other Systems: ROS reviewed and negative except as documented in HPI and ROS
Constitutional: Denies fever or fatigue
Respiratory: Denies trouble breathing
Cardiac: Denies chest pain or syncope
ABD/GI: Reports nausea; Denies abdominal pain, vomiting, diarrhea or anorexia (asking for something to eat)
: Reports incontinence (was incontinent while laying on floor. ); Denies dysuria or difficulty voiding
Musculoskeletal: Reports back pain (left mid back pain); Denies joint pain, muscle pain, edema or neck pain
Skin: Reports no symptoms
Neurological: Reports no symptoms
Phy Exam
Physical Exam
Physical Exam:
GENERAL: No acute distress. A&Ox3.
CONSTITUTIONAL: Afebrile.
EYES: PERRL, conjunctivae normal
Neck: Supple
ENMT: moist mucus membranes, Pharynx nl
RESPIRATORY: Regular respirations, nonlabored, lungs clear.
CARDIOVASCULAR: Regular rate and rhythm, no murmurs, no rubs.
GI: Soft, nontender, normal BS
MUSCULOSKELETAL: No spinal bony tenderness, mild tenderness left mid back area. No discoloration here. Moves with ease. Well perfused. No edema
SKIN: Warm, dry, pink
PSYCH: Normal mood and affect. Well kept, interactive and appropriate
NEUROLOGIC: Awake, alert and oriented. Speech clear, No focal neurological deficits
Injury Course
Orders/Labs/Results
Orders:
Orders
05/04/24 Breakfast
Sodium, 2 Gram
At Your Request: Full Participation
05/04/24 14:06
EKG [Electrocardiogram (*1)] Urgent
Reason for Study: Vertigo / Dizzy
05/04/24 14:07
EKG- Treatment ONCE
05/04/24 16:37
Thoracic Spine 3 Views CR [CR Thoracic Spine 3 Views] Urgent
Comment:
Reason For Exam: pain mid back after fall
05/04/24 16:50
CPK Isoenzyme Urgent
Complete Blood Count/With Diff Urgent
Comprehensive Metabolic Panel Urgent
05/04/24 16:54
Acetaminophen [Tylenol] 1,000 mg PO NOW STA
05/04/24 17:07
Ondansetron Injectable [Zofran] 4 mg .ROUTE .STK-MED ONE
05/04/24 17:08
Ondansetron Injectable [Zofran] 4 mg IV NOW STA
05/04/24 18:15
0.9% Sodium Chloride 500 ml [Nss] 500 ml IV BOLUS
05/04/24 19:02
Admit/Transfer Patient As Directed
Co-Sign Provider:
Level of Care: Inpatient admission
Assign to:: Medical/Surgical
Physician / Group: Kody
Diagnosis: Rhabdomyolysis
Reason for Hospitalization: IVFs
Expected length of stay greater than two midnights?: Yes
ELOS- Estimated Length of Stay in days: 3
I certify the patient meets the requirements for IP care: Yes
05/04/24 19:05
PRN Pain Medication Management As Directed
May give lesser potent ordered pain med per pt: Yes
preference::
Protocol:: Medication orders for pain may be administered in a
manner that supports deferring to patient preference
when the pt is:
- Requesting an ordered lesser potent pain medication.
Least to most potent pain medications are defined
as: acetaminophen < NSAID < tramadol < opioids
(morphine, oxycodone, hydromorphone).
- Requesting a lesser dose of the same medication IF
ORDERED.
- Requesting a less intrusive route of administration
if both routes are prescribed by the provider (PO <
IV).
05/04/24 19:08
Code Status As Directed
Resuscitation Status: Full Code
05/04/24 20:20
Urinalysis Reflex To Culture Urgent
Date Specimen was Collected: 05/04/24
Time Specimen was Collected: 18:17
Urine Microscopic Reflex Cult Urgent
Urine Culture Urgent
RUBA Source: U
Specimen Description:
Date Specimen was Collected: 05/04/24
Time Specimen was Collected: 18:17
05/04/24 20:31
0.9% Sodium Chloride 1000 ml [Nss] 1,000 ml IV 80 mls/hr
Acetaminophen [Tylenol] 650 mg PO Q6HPRN PRN
Carvedilol [Coreg] 25 mg PO BID
Dextrose 50%-Water [Dextrose 50% Syringe] 12.5 grams IV [id number] PRN
Glucagon [GlucaGen] 1 mg IM PRN PRN
HydrALAZINE [Apresoline] 5 mg IV Q6HPRN PRN
05/04/24 20:31
Activity As Directed
Activity Level: Out of Bed- Chair
Bedside Glucose Monitoring As Directed
Frequency: AC&HS
Additional Instructions:: Change to q6h if pt on TPN, tube feeding or not eating
I&O [Intake/ Output] As Directed
Frequency: q12h
Vital Signs As Directed
Frequency: Per unit guidelines
Weight As Directed
Frequency: Daily
Ot Eval And Treat Routine
Pt Eval And Treat Routine
Activity Level: Out of Bed-Early Mobility
DX Deep Vein Thrombosis Video Routine
05/05/24 00:00
Heparin 5,000 units SC Q8
05/05/24 06:00
Complete Blood Count/No Diff IN AM
Comprehensive Metabolic Panel IN AM
Creatine Phosphokinase IN AM
05/05/24 07:30
Insulin Aspart Corrective Low [Novolog Flexpen-Low Resistance] See Protocol SC AC
05/05/24 08:00
Aspirin Chewable [Low Strength Aspirin] 81 mg PO DAILY
Abnormal Lab Results
05/04/24
16:50
WBC 12.7 H 10^3/uL
(4.8-10.8)
RBC 3.66 L 10^6/uL
(4.20-5.40)
Hct 34.2 L %
(37.0-47.0)
MCH 32.8 H pg
(27.0-31.0)
MPV 11.2 H fL
(7.4-10.4)
Abs Immat Gran (auto) 0.1 H 10^3/uL
(0-0.05)
Absolute Neuts (auto) 11.0 H 10^3/uL
(1.4-6.5)
Absolute Lymphs (auto) 0.6 L 10^3/uL
(1.2-3.4)
Absolute Monos (auto) 1.0 H 10^3/uL
(0.1-0.6)
Immature Gran % 0.6 H %
(0-0.5)
Neutrophils % 86.3 H %
(42.2-75.2)
Lymphocytes % 4.6 L %
(20.5-51.1)
BUN 25 H mg/dl
(7-17)
Creatinine 1.2 H mg/dL
(0.6-1.0)
Glucose 257 H mg/dl
(70-99)
Calcium 12.0 H mg/dl
(8.4-10.2)
Total Bilirubin 2.5 H mg/dl
(0.2-1.3)
AST 120 H U/L
(14-36)
ALT 51 H U/L
(0-35)
Total Creatine Kinase 1117 H U/L
(30-135)
CK-MB (CK-2) 8.6 H ng/ml
(0.0-2.4)
05/04/24 16:50
05/04/24 16:50
MDM/Problems Addressed
Differential Diagnosis Includes:
mechanical fall, rhabdomyolysis
fx t spine
MDM/Problems Addressed:
84 yo female w h/o CHF, CAD, HTN, HLD,GERD, CKD, presents after a fall in her apt. at [employer]. States she at 6 a.m. she fell forward out of her electric reclining chair onto her hands and knees onto carpeted floor. States she laid on floor until
1 p.m. when security finally came and opened her door. She denies hitting head, has pain left side of mid back. Has no bony pain of extremities, neck or back. Denies UTI symptoms
EKG: NSR
CBC: WBC 12.7 (reactive)
6:15 p.m.
CMP: BUN/creat at her baseline. Mild elevation in liver enzymes.
CPK: 1117
Pt eating, became nauseous, gagging, no vomiting, given Zofran
T spine xray neg for fracture.
Plan: Admit: Rhabdomyolysis, CKD
Hospitalist notified of admission
*EKG
EKG Intrepretation Date: 05/04/24
Interpretation: normal
Heart Rate: 93
Rate: normal
Rhythm: sinus
Standard: normal axis
Interval: normal interval
QRS Pattern: normal QRS
Ischemia: no ischemia
*Critical Care Note
Total Time (30-74mins, 75-104mins- exclusive of procedures): Not Applicable
ED Attending Note
-
Portions of this chart may have been created with voice recognition software.� Occasional wrong word or��sound alike� substitutions may have occurred due to the inherent limitations of voice recognition software.
Discharge Plan
Departure
Patient Disposition: Admit
Date of Disposition: 05/04/24
Time of Disposition: 18:18
Admit to: Med/Surg
Presentation/result/management discussed w/ accepting MD/DO: Hospitalist
Condition: Fair
Discharge Problem:
Accident due to mechanical fall without injury, Rhabdomyolysis
Interventions
Interventions:
*Risk Screen - Suicide Last Done: 05/04/24 13:58
*General Assessment Last Done: 05/04/24 13:58
*Neglect/Abuse Screening Last Done: 05/04/24 13:58
*ED COVID-19 Vaccine History Last Done: 05/04/24 13:58
*Nursing Disposition Last Done: 05/04/24 20:30
ED-Musculoskeletal Assessment Last Done: 05/04/24 16:00
ED- Neurological Assessment Last Done: 05/04/24 16:00
ED-Skin Assessment Last Done: 05/04/24 16:00
Discharge Date and Time
Discharge Date/Time: 05/04/24 20:30
[2024-05-04 17:07] LABS: % Basophils 0.4 % (0-2); % Eosinophils 0.3 % (0-6); % Immature Granulocytes 0.6 % (0-0.5); % Lymphocytes 4.6 % (20.5-51.1); % Monocytes 7.8 % (1.7-9.3); % Neutrophils 86.3 % (42.2-75.2); Absolute Basophils 0.1 10^3/uL (0-0.2); Absolute Immature Granulocytes 0.1 10^3/uL (0-0.05); Absolute Lymphocytes 0.6 10^3/uL (1.2-3.4); Hematocrit 34.2 % (37.0-47.0); Mean Corp Hgb Conc. 35.1 g/dL (33.0-37.0); Mean Corpuscular Hgb 32.8 pg (27.0-31.0); Mean Corpuscular Volume 93.4 fL (81.0-99.0); Mean Platelet Volume 11.2 fL (7.4-10.4); Nucleated Red Blood Cells % 0 %; Platelet Count 225 10^3/uL (130-400); Red Blood Cell Count 3.66 10^6/uL (4.20-5.40); Red Cell Dist. Width 12.5 % (11.5-14.5); White Blood Cell Count 12.7 10^3/uL (4.8-10.8)
[2024-05-04] MEDS: TYLENOL 1000 MG PO (17:08)
[2024-05-04] MEDS: ZOFRAN 4 MG IV (17:08)
[2024-05-04 17:19] LABS: ALT (SGPT) 51 U/L (0-35); AST (SGOT) 120 U/L (14-36); Albumin 4.2 g/dl (3.5-5.0); Alkaline Phosphatase 121 U/L (38-126); Blood Urea Nitrogen 25 mg/dl (7-17); Carbon Dioxide 25 mmol/L (22-30); Chloride 103 mmol/L (98-107); Glucose 257 mg/dl (70-99); Potassium 4.5 mmol/L (3.5-5.1); Sodium 136 mmol/L (135-145); Total Bilirubin 2.5 mg/dl (0.2-1.3); Total CK 1117 U/L (30-135); Total Protein 6.4 g/dl (6.3-8.2); eGFR 45.19
[2024-05-04 17:42] LABS: CKMB 8.6 ng/ml (0.0-2.4)
[2024-05-04] MEDS: NSS 500 IV (18:24)
[2024-05-04 18:25] VITALS: BP 176/48
[2024-05-04 18:26] VITALS: BMI 37.0
--- NOTE | 2024-05-04 19:02 | HPS.HSE ---
Family Physician
-
Family Physician: Adry Ahmadi
Chief Complaint
-
Fall
History of Present Illness
Patient is an 84 y/o female past medical history of severe aortic stenosis s/p TAVR in Feb 2024, diabetes mellitus, hypertension and CKD who presents following a fall. Patient reports she was getting up from her electric reclining chair when she
fell forward onto her hands and knees. She laid on the floor for 7 hours until security heard her calling out. Work-up in the emergency department revealed rhabdomyolysis. Hospitalist group was asked to evaluate the patient for admission to the
hospital.
Medical History
Past Medical History
Past Medical History: Reports Other
Additional Past Medical History:
Severe Aortic Stenosis s/p TAVR in Feb 2024
Mild/Moderate Mitral Regurgitation
Diabetes Mellitus, Type II
Essential Hypertension
Hyperlipidemia
CKD Stage III
Hyperparathyroidism
GERD
Obesity
Past Surgical History: Reports Other
Additional Past Surgical History:
Appendectomy
DRE
Bilateral Total Knee Replacements
Cholecystectomy
Social History
Tobacco: Non-smoker
Alcohol: None
Drug: None
Personal: Single
Living: Alone
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
Family History
Family History: CAD (Father 74yo, Mother 73yo)
Allergies / Home Medications
Allergies reflects when Allergies were last updated in [facility].
Home Medications with original date entered in [facility]
Allergy/Medication List:
Allergies
Allergy/AdvReac Type Severity Reaction Status Date / Time
NSAIDS (Non-Steroidal Allergy Unknown Verified 10/23/23 02:57
Anti-Inflamma
sulindac Allergy Unknown Verified 10/23/23 02:57
Home Medications
omeprazole 10 mg capsule,delayed release (Prilosec) 20 mg PO DAILY PRN Heartburn 06/29/18
amlodipine 2.5 mg tablet 2.5 mg PO DAILY 10/23/23
atorvastatin 40 mg tablet 40 mg PO DAILY 10/23/23
carvedilol 25 mg tablet 25 mg PO BID 10/23/23
lisinopril 10 mg tablet 10 mg PO DAILY 10/23/23
pioglitazone 30 mg tablet (Actos) 30 mg PO DAILY 10/23/23
Review of Systems
-
A 12 point ROS was completed and negative except as noted: Yes
Constitutional: Denies Fever or Chills
Respiratory: Denies Cough or Trouble Breathing
Cardiac: Denies Chest Pain or Palpitations
Abdomen/GI: Denies Abdominal Pain, Nausea, Vomiting or Diarrhea
Physical Exam
Vital Signs
Vital Signs
Temp Pulse Resp BP Pulse Ox
98.3 F 75 18 176/48 98
05/04/24 13:58 05/04/24 18:25 05/04/24 18:25 05/04/24 18:25 05/04/24 18:25
Physical Exam
General: Comfortable and Conversant
HEENT: Anicteric and Moist mucous membranes
Respiratory: Clear and Non Labored Respirations
Cardiac: S1/S2, Regular Rhythm and Murmur
GI: Soft, Non Tender and Non Distended
Rectal: Deferred by Provider
Musculoskeletal: No Clubbing and No Cyanosis
Skin: Warm and Dry
Neuro: Awake, Alert, Oriented and Nonfocal/grossly intact
Psych: Calm
Laboratory Results
-
05/04/24 16:50
05/04/24 16:50
Laboratory Results
Total Bilirubin 2.5 mg/dl (0.2-1.3) H 05/04/24 16:50
AST 120 U/L (14-36) H 05/04/24 16:50
ALT 51 U/L (0-35) H 05/04/24 16:50
Alkaline Phosphatase 121 U/L (38-126) 05/04/24 16:50
Data Reviewed
-
Diagnostic Radiology: Report Reviewed by me
Lab Data: Labs Reviewed by me
Impression/Plan
-
Acute Rhabdomyolysis
-Hold Lasix and Lisinopril
-Continue IVFs
-Recheck labs in AM
Severe Aortic Stenosis s/p TAVR in Feb 2024
Mild/Moderate Mitral Regurgitation
-Lasix on hold
-Monitor Is&Os and Daily Weights
Diabetes Mellitus, Type II
-HgbA1c 8.4 in Feb 2024
-Patient does not take any diabetic medications as outpatient
-Monitor sugars and coverage insulin
Essential Hypertension
-Lisinopril on hold
-Continue Coreg
-Add prn hydralazine
Hyperlipidemia
-Hold statin
CKD Stage III
-Creatinine at baseline
Hyperparathyroidism
-Calcium slightly higher than baseline
-Recheck following IVFs
Morbid Obesity due to Excess Calories
-Affects all aspects of care
DVT proph: SC Heparin
Code Status: Full Code
--- NOTE | 2024-05-04 19:25 | W.PN.UPDATE ---
Update Note
Progress Note Update
This is an addendum to H&P written by Pamela Lutz on 05/04/2024. Patient seen and examined independently with PA.
84-year-old female past medical history of aortic stenosis status post TAVR, CAD, hypertension, hyperlipidemia, GERD, osteoarthritis, type 2 diabetes, CKD 3, obesity, bilateral total knee replacements, here with mechanical fall out of reclining
chair found on the ground at [facility]. She is complaining of back pain with thoracic x-ray unremarkable.
Labs consistent with rhabdomyolysis with leukocytosis, hypercalcemia, transaminitis, CK of 1000. Renal function at baseline at 1.2 creatinine. Patient hypertensive with blood pressure 170s at this time. IV fluids. As needed hydralazine. Hold
Lasix, lisinopril, statin.
[2024-05-04 20:31] LABS: Urine Albumin 3+ (Neg - Trace); Urine Bilirubin Negative (Negative); Urine Character Clear (Clear); Urine Color Amber; Urine Glucose 3+ (Negative); Urine Ketone Trace (Negative); Urine Leukocyte Trace (Negative); Urine Nitrite Negative (Negative); Urine Occult Blood 4+ (Negative); Urine Specific Gravity 1.015 (<1.030); Urine Urobilinogen Negative (Neg - 1+)
[2024-05-04 20:45] VITALS: BP 157/51; BMI 35.4
[2024-05-04 20:59] LABS: Urine Amorphous Seen
[2024-05-04 21:01] LABS: Urine Bacteria Few (Negative)
[2024-05-04] MEDS: COREG 25 MG PO (22:59)
[2024-05-04] MEDS: NSS 1000 IV (23:00)
[2024-05-04 23:22] VITALS: BP 136/53
[2024-05-04 23:28] VITALS: BMI 35.4
[2024-05-04] MEDS: HEPARIN 5000 UNITS SC (23:45)
[2024-05-04 23:46] LABS: Glucose - Point of Care 220 mg/dl (70-99)
[2024-05-05] MEDS: TYLENOL 650 MG PO (07:22)
[2024-05-05 07:29] VITALS: BP 145/49
[2024-05-05 07:37] LABS: ALT (SGPT) 39 U/L (0-35); AST (SGOT) 57 U/L (14-36); Albumin 3.2 g/dl (3.5-5.0); Alkaline Phosphatase 93 U/L (38-126); Blood Urea Nitrogen 26 mg/dl (7-17); Calcium 11.1 mg/dl (8.4-10.2); Carbon Dioxide 22 mmol/L (22-30); Chloride 107 mmol/L (98-107); Creatine Phosphokinase 499 U/L (30-135); Estimated Creatinine Clearance 30 ml/min; Glucose 182 mg/dl (70-99); Potassium 4.5 mmol/L (3.5-5.1); Sodium 136 mmol/L (135-145); Total Bilirubin 1.5 mg/dl (0.2-1.3); Total Protein 5.3 g/dl (6.3-8.2); eGFR 41.06
[2024-05-05 07:55] LABS: Hematocrit 28.4 % (37.0-47.0); Hemoglobin 9.6 g/dL (12.0-16.0); Mean Corp Hgb Conc. 33.8 g/dL (33.0-37.0); Mean Corpuscular Hgb 31.9 pg (27.0-31.0); Mean Corpuscular Volume 94.4 fL (81.0-99.0); Mean Platelet Volume 11.4 fL (7.4-10.4); Platelet Count 182 10^3/uL (130-400); Red Blood Cell Count 3.01 10^6/uL (4.20-5.40); Red Cell Dist. Width 12.7 % (11.5-14.5); White Blood Cell Count 8.3 10^3/uL (4.8-10.8)
[2024-05-05 08:21] LABS: Glucose - Point of Care 194 mg/dl (70-99)
[2024-05-05] MEDS: COREG 25 MG PO ×2 (09:31→20:16)
[2024-05-05] MEDS: HEPARIN 5000 UNITS SC ×3 (09:31→23:07)
[2024-05-05] MEDS: LOW STRENGTH ASPIRIN 81 MG PO (09:31)
[2024-05-05] MEDS: NOVOLOG FLEXPEN-LOW RESISTANCE 1 UNITS SC (09:53)
--- NOTE | 2024-05-05 11:06 | W.PN.HOSP.TC ---
Today's Communication/Plan
-
Resume oral medications
No need for more IVF
PT/OT
Assessment / Plan
Assessment / Plan
Physical Exam
General: Comfortable and Conversant
HEENT: Anicteric and Moist mucous membranes
Respiratory: Clear and Non Labored Respirations
Cardiac: S1/S2, Regular Rhythm and Murmur
GI: Soft, Non Tender and Non Distended
Rectal: no rectal bleeding
Musculoskeletal: No Clubbing and No Cyanosis
Skin: Warm and Dry
Neuro: Awake, Alert, Oriented and Nonfocal/grossly intact
Psych: Calm
# Acute Traumatic Rhabdomyolysis due to fall
She is feeling better, denies muscle stiffness or spams. No worsening renal function ( underlying CKD)
WBC came down
No fevers
-Held Lasix and Lisinopril, can resume
- no need for more IVFs
-Recheck labs in AM
Order PT/OT
Severe Aortic Stenosis s/p TAVR in Feb 2024
Mild/Moderate Mitral Regurgitation
-MonitorDaily Weights
Diabetes Mellitus, Type II
-HgbA1c 8.4 in Feb 2024
-Patient does not take any diabetic medications as outpatient
-Monitor sugars and coverage insulin
Essential Hypertension
-Continue Coreg
-Added prn hydralazine
Hyperlipidemia
-Hold statin
CKD Stage IIIA
-Creatinine at baseline
Will resume her medications.
Hyperparathyroidism
-Calcium slightly higher than baseline
#Morbid Obesity due to Excess Calories
-Affects all aspects of care
DVT proph: SC Heparin
Code Status: Full Code
Total time spent to see the patient on the floor, examine the patient, review data and lab results, discuss treatment plan with patient, nursing staff around 55 minutes
Anticipated Discharge: 24 - 48 hours
Subjective/Interval History
-
Date of Service: May 05, 2024
No chest pain
No sob
No fevers
Objective Data
-
Labs:
Laboratory Results
05/05/24
06:44
WBC 8.3
Hgb 9.6 L
Hct 28.4 L
Plt Count 182
Sodium 136
Potassium 4.5
Chloride 107
Carbon Dioxide 22
BUN 26 H
Creatinine 1.3 H
Glucose 182 H
Calcium 11.1 H
Total Bilirubin 1.5 H D
AST 57 H
ALT 39 H
Alkaline Phosphatase 93
Vital Signs:
Vital Signs
Temp Pulse Resp BP Pulse Ox
98.1 F 70 16 145/49 94
05/05/24 07:29 05/05/24 07:29 05/05/24 07:29 05/05/24 07:29 05/05/24 07:29
I&O
05/04/24 05/05/24 05/06/24
06:59 06:59 06:59
Intake Total 1040 / 1040
Balance 1040 / 1040
[2024-05-05 11:59] VITALS: BP 138/48; PULSE 63; O2SAT 96
[2024-05-05 12:02] VITALS: BP 138/48; PULSE 63
[2024-05-05 12:16] LABS: Glucose - Point of Care 213 mg/dl (70-99)
[2024-05-05] MEDS: NSS IV (12:28)
[2024-05-05] MEDS: NOVOLOG FLEXPEN-LOW RESISTANCE 2 UNITS SC ×2 (13:44→17:33)
[2024-05-05] MEDS: ZESTRIL 10 MG PO (13:45)
[2024-05-05 15:10] VITALS: BP 121/61
[2024-05-05 16:30] LABS: Glucose - Point of Care 209 mg/dl (70-99)
[2024-05-05 16:49] LABS: Calcium 11.1 mg/dl (8.4-10.2)
[2024-05-05 20:25] LABS: Intact PTH 475.7 pg/ml (13.6-85.8)
[2024-05-05 21:35] LABS: Glucose - Point of Care 222 mg/dl (70-99)
[2024-05-05 23:10] VITALS: BP 158/49
[2024-05-06 06:00] VITALS: BMI 35.9
[2024-05-06 07:23] LABS: Blood Urea Nitrogen 24 mg/dl (7-17); Calcium 10.7 mg/dl (8.4-10.2); Carbon Dioxide 20 mmol/L (22-30); Chloride 105 mmol/L (98-107); Creatine Phosphokinase 239 U/L (30-135); Estimated Creatinine Clearance 33 ml/min; Glucose 175 mg/dl (70-99); Potassium 4.4 mmol/L (3.5-5.1); Sodium 134 mmol/L (135-145); eGFR 45.19
[2024-05-06 07:52] VITALS: BP 165/60
[2024-05-06 08:02] LABS: Glucose - Point of Care 189 mg/dl (70-99)
[2024-05-06] MEDS: LASIX 40 MG PO (09:29)
[2024-05-06] MEDS: LOW STRENGTH ASPIRIN 81 MG PO (09:30)
[2024-05-06] MEDS: NOVOLOG FLEXPEN-LOW RESISTANCE 1 UNITS SC ×3 (09:30→17:27)
[2024-05-06] MEDS: ZESTRIL 10 MG PO (09:30)
[2024-05-06] MEDS: COREG 25 MG PO ×2 (09:30→20:09)
[2024-05-06] MEDS: HEPARIN 5000 UNITS SC ×3 (09:30→23:55)
--- NOTE | 2024-05-06 10:25 | W.PN.HOSP.TC ---
Today's Communication/Plan
-
Start Farxiga
No need for more IVF
c/w regular diet
PT/OT
Vitamin D level
Assessment / Plan
Assessment / Plan
Physical Exam
General: Comfortable and Conversant
HEENT: Anicteric and Moist mucous membranes
Respiratory: Clear and Non Labored Respirations
Cardiac: S1/S2, Regular Rhythm and Murmur
GI: Soft, Non Tender and Non Distended
Rectal: no rectal bleeding
Musculoskeletal: No Clubbing and No Cyanosis
Skin: Warm and Dry
Neuro: Awake, Alert, Oriented and Nonfocal/grossly intact
Psych: Calm
# Acute Traumatic Rhabdomyolysis due to fall
She is feeling better, denies muscle stiffness or spams. No worsening renal function ( underlying CKD)
WBC, normalized
CK came down
No fevers
Resumed Lasix and Lisinopril.
No need for more IVFs
Ordered PT/OT
# Mild hyponatremia
c/w regular diet, mild fluid restriction.
# Dilutional anemia. NO bleeding.
#Severe Aortic Stenosis s/p TAVR in Feb 2024
Mild/Moderate Mitral Regurgitation
Chronic HFpEF
No hypoxia, she denies cough or sob.
#Diabetes Mellitus, Type II
-HgbA1c 8.4 in Feb 2024
- She was on Actos but was dc in October 2023 after diagnosis of CHF. Has not been on OP medications.
Will start her SGLT2 inhibitor Dapagliflozin . Monitor blood glucose and coverage insulin
#Essential Hypertension
-Continue Coreg
-Added prn hydralazine
#Hyperlipidemia
- no changes intended.
#CKD Stage IIIA
-Creatinine at baseline
No renal colic or hematuria.
# Chronic hypercalcemia, Likely secondary Hyperparathyroidism
Elevated PTH. Might benefit from calcitriol [place]. Check vitamin D level.
D/w niece ( POA), recommended OP nephrology follow up for CKD and hypercalcemia.
#Morbid Obesity due to Excess Calories
-Affects all aspects of care
DVT proph: SC Heparin
Code Status: Full Code
Total time spent to see the patient on the floor, examine the patient, review data and lab results, discuss treatment plan with patient, POA, nursing staff around 55 minutes
Anticipated Discharge: Within 24 hours
Subjective/Interval History
-
Date of Service: May 06, 2024
No chest pain
No sob
No fevers
Objective Data
-
Labs:
Laboratory Results
05/06/24
06:27
Sodium 134 L
Potassium 4.4
Chloride 105
Carbon Dioxide 20 L
BUN 24 H
Creatinine 1.2 H
Glucose 175 H
Calcium 10.7 H
Vital Signs:
Vital Signs
Temp Pulse Resp BP Pulse Ox
98.8 F 61 17 165/60 95
05/06/24 07:52 05/06/24 07:52 05/06/24 07:52 05/06/24 07:52 05/06/24 07:52
I&O
05/05/24 05/06/24 05/07/24
06:59 06:59 06:59
Intake Total 1040 / 1040 1080 / 1080
Balance 1040 / 1040 1080 / 1080
[2024-05-06 11:23] LABS: Glucose - Point of Care 179 mg/dl (70-99)
[2024-05-06 11:57] LABS: Vitamin D, 25-OH*** < 12.8 ng/mL (30-80)
[2024-05-06] MEDS: FARXIGA 10 MG PO (11:58)
[2024-05-06] MEDS: TYLENOL 650 MG PO (11:58)
--- NOTE | 2024-05-06 12:41 | CM ---
Patient who resides at [facility] [address] who fell at home. Room air. PT/OT recommend skilled rehab.
Met with patient and spoke with her niece Candy by phone;
the patient resides in an apartment at [facility] (elevator building) which provides low income housing.
The patient has been independent in ADLs and ambulation using her rollator.
Patient has some food/housing insecurities.
She has had assistance from the at [facility] and receives a rent rebate and food stamps via SNAP.
*Suggested patient/niece request [facility] to help her apply for a caregiver through the Waiver program, for LTC.
Niece says patient has asked her and the nephew Adolfo for money at times to pay her bills.
The niece and nephew take the patient to medical appointments.
Niece takes her food shopping.
When niece/nephew are not available a friend also assists with rides.
Patient admits to a fall prior to admission and also says she fell a few months ago.
DME - rollator
Prior [facility]
Prior [facility] SNF.
PCP - Adry Ahmadi
Pharmacy- [facility]
Discussed PT/OT recommendations; patient insisting she is still independent and wants to go home.
Discussed separately with niece who would like her to go to SNF for short term rehab.
Niece says she will call the patient and talk with her about going to [facility] again for short term rehab, where her sister resides in LTC.
Plan follow up with patient & niece about SNF for short term rehab.
[2024-05-06 15:00] VITALS: BP 145/46
[2024-05-06 16:18] LABS: Glucose - Point of Care 190 mg/dl (70-99)
[2024-05-06 21:31] LABS: Glucose - Point of Care 152 mg/dl (70-99)
[2024-05-06 23:32] VITALS: BP 161/48
[2024-05-07 06:00] VITALS: BMI 35.4
[2024-05-07 07:10] VITALS: BP 157/53
[2024-05-07 08:05] LABS: Hematocrit 28.6 % (37.0-47.0); Mean Corpuscular Volume 94.4 fL (81.0-99.0); Mean Platelet Volume 11.8 fL (7.4-10.4); Platelet Count 167 10^3/uL (130-400); Red Blood Cell Count 3.03 10^6/uL (4.20-5.40); Red Cell Dist. Width 12.5 % (11.5-14.5); White Blood Cell Count 7.2 10^3/uL (4.8-10.8)
[2024-05-07 08:27] LABS: Glucose - Point of Care 164 mg/dl (70-99)
[2024-05-07] MEDS: LASIX 40 MG PO (08:28)
[2024-05-07] MEDS: LOW STRENGTH ASPIRIN 81 MG PO (08:28)
[2024-05-07] MEDS: COREG 25 MG PO (08:28)
[2024-05-07] MEDS: FARXIGA 10 MG PO (08:28)
[2024-05-07] MEDS: HEPARIN 5000 UNITS SC ×2 (08:29→15:49)
[2024-05-07] MEDS: ZESTRIL 10 MG PO (08:29)
[2024-05-07] MEDS: NOVOLOG FLEXPEN-LOW RESISTANCE 1 UNITS SC (08:32)
[2024-05-07 09:03] LABS: Blood Urea Nitrogen 24 mg/dl (7-17); Calcium 10.9 mg/dl (8.4-10.2); Carbon Dioxide 24 mmol/L (22-30); Chloride 104 mmol/L (98-107); Estimated Creatinine Clearance 33 ml/min; Glucose 146 mg/dl (70-99); Potassium 4.6 mmol/L (3.5-5.1); Sodium 137 mmol/L (135-145); eGFR 45.19
[2024-05-07 10:15] VITALS: BP 156/57; PULSE 69; O2SAT 95
[2024-05-07 12:15] LABS: Glucose - Point of Care 208 mg/dl (70-99)
[2024-05-07] MEDS: DRISDOL (VITAMIN D2) 50000 UNITS PO (12:20)
[2024-05-07] MEDS: NOVOLOG FLEXPEN-LOW RESISTANCE 2 UNITS SC ×2 (12:20→17:10)
--- NOTE | 2024-05-07 12:42 | CM ---
Addendum entered by ANTWAN Pearson 05/07/24 13:49:
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 Attending updated.
Original Note:
Reviewed chart. Received update from attending that patient is medically cleared for discharge today. Met with patient who is agreeable to SNF. She stated that she wants to go to [facility].
Placed a call to [facility] and spoke with Jeanie in admissions who confirmed she can take patient.
#For report [phone] and fax [phone]
Will discuss transportation options with patient.
Plan: Case management will continue to follow and assist with discharge planning. [facility] today.
--- NOTE | 2024-05-07 12:56 | W.PN.HOSP.TC ---
Addendum entered and electronically signed by Elton Quinones MD 05/07/24 16:46:
[id number]
Original Note:
Today's Communication/Plan
-
Vitamin D3 2000 units daily
Follow-up PTH, calcium level outpatient
SGLT2 inhibitor
F/u PCP, Nephro outpatient
Assessment / Plan
Assessment / Plan
Physical Exam
General: Comfortable and Conversant
HEENT: Anicteric and Moist mucous membranes
Respiratory: Clear and Non Labored Respirations
Cardiac: S1/S2, Regular Rhythm and Murmur
GI: Soft, Non Tender and Non Distended
Rectal: no rectal bleeding
Musculoskeletal: No Clubbing and No Cyanosis
Skin: Warm and Dry
Neuro: Awake, Alert, Oriented and Nonfocal/grossly intact
Psych: Calm
# Acute Traumatic Rhabdomyolysis due to fall
She is feeling better, denies muscle stiffness or spams. No worsening renal function ( underlying CKD)
WBC, normalized
CK came down
No fevers
Resumed Lasix and Lisinopril.
No need for more IVFs
Ordered PT/OT�SNF
# Mild hyponatremia
c/w regular diet, mild fluid restriction.
Improved
#Chronic anemia
� Monitor outpatient
#Severe Aortic Stenosis s/p TAVR in Feb 2024
Mild/Moderate Mitral Regurgitation
Chronic HFpEF
No hypoxia, she denies cough or sob.
#Diabetes Mellitus, Type II
-HgbA1c 8.4 in Feb 2024
- She was on Actos but was dc in October 2023 after diagnosis of CHF. Has not been on OP medications.
Will start her SGLT2 inhibitor Dapagliflozin . Monitor blood glucose and coverage insulin
#Essential Hypertension
-Continue Coreg
-Added prn hydralazine
#Hyperlipidemia
- no changes intended.
#CKD Stage IIIA
-Creatinine at baseline
No renal colic or hematuria.
# Chronic hypercalcemia, appears to be primary hyperparathyroidism
Start vitamin D3 2000 units daily
� Follow-up PTH, calcium outpatient
D/w niece ( POA), recommended OP nephrology follow up for CKD and hypercalcemia.
#Morbid Obesity due to Excess Calories
-Affects all aspects of care
DVT proph: SC Heparin
Code Status: Full Code
More than 30 minutes spent in discharge including
Final examination of the patient
Summarizing hospital stay
Instructions for continuing care to all relevant caregivers
Preparation of discharge records, prescriptions, and referral forms
Total time spent (35 in minutes):
Anticipated Discharge: Today
Subjective/Interval History
-
Date of Service: May 07, 2024
No acute events
Objective Data
-
Labs:
Laboratory Results
05/07/24
07:25
WBC 7.2
Hgb 10.0 L
Hct 28.6 L
Plt Count 167
Sodium 137
Potassium 4.6
Chloride 104
Carbon Dioxide 24
BUN 24 H
Creatinine 1.2 H
Glucose 146 H
Calcium 10.9 H
Vital Signs:
Vital Signs
Temp Pulse Resp BP Pulse Ox
97.7 F 69 17 157/53 95
05/07/24 07:10 05/07/24 08:29 05/07/24 07:10 05/07/24 08:29 05/07/24 07:10
I&O
05/06/24 05/07/24 05/08/24
06:59 06:59 06:59
Intake Total 1080 / 1080 1440 / 1440
Balance 1080 / 1080 1440 / 1440
Review of Systems
-
History Source: Patient
All other systems: Not reviewed unless documented
Data Reviewed
-
Labs: Labs Reviewed by me
--- NOTE | 2024-05-07 13:01 | W.DS.TRANS ---
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
-
Discharge Instructions:
Sleep Apnea Risk Intermediate
Discharge Diagnosis/Procedures Acute Traumatic Rhabdomyolysis due to fall
Vitamin D deficiency
Diet Low Cholesterol,Low Fat,Diabetic, Carb
Controlled
Blood Work Calcium level, PTH, Vit D
Instructions:
Stand-Alone Forms:
Changes to Home Medications: Yes
Discharge Medications:
DC Medications w/original date entered in [employer]
atorvastatin 40 mg tablet 40 mg PO DAILY High Cholesterol 10/23/23
carvedilol 25 mg tablet 25 mg PO BID Blood Pressure 10/23/23
lisinopril 10 mg tablet 10 mg PO DAILY Blood Pressure 10/23/23
acetaminophen 325 mg tablet 650 mg (2 x 325 mg) PO Q6HPRN PRN MITCHELL, mild pain, or fever >101F #0 tabs 03/09/24
aspirin 81 mg chewable tablet (Children's Aspirin) 81 mg PO DAILY Blood clot prevention/tx #0 tabs 03/09/24
furosemide 40 mg tablet 40 mg PO DAILY Fluid retention/Swelling #0 tabs 03/09/24
cholecalciferol (vitamin D3) 50 mcg (2,000 unit) tablet (Vitamin D3) 50 mcg PO DAILY 30 days #30 tabs 05/07/24
dapagliflozin propanediol 10 mg tablet 10 mg PO DAILY #0 tabs 05/07/24
Home Medication Changes
cholecalciferol (vitamin D3) 50 mcg (2,000 unit) tablet (Vitamin D3) 50 mcg PO DAILY 30 days #30 tabs 05/07/24
dapagliflozin propanediol 10 mg tablet 10 mg PO DAILY #0 tabs 05/07/24
Pending Results: No
[2024-05-07 15:20] VITALS: BP 158/44
[2024-05-07 16:30] LABS: Glucose - Point of Care 204 mg/dl (70-99)
== END 2024-05-07 17:31 | DRG 565 ==
LOC: 3 WEST ACU 19:58
PROVIDERS: Internal Medicine; Physician Assistant Medical; Registered Nurse; ADMITTING PHYSICIAN Hospitalist; ATTENDING PHYSICIAN Internal Medicine; EMERGENCY PHYSICIAN Emergency Medicine; FAMILY PHYSICIAN Internal Medicine
DX: T79.6XXA Traumatic ischemia of muscle, initial encounter (principal); E87.1 Hypo-osmolality and hyponatremia; I13.0 Hypertensive heart and chronic kidney disease with heart failure and stage 1 through stage 4 chronic kidney disease, or unspecified chronic kidney disease; W07.XXXA Fall from chair, initial encounter; E55.9 Vitamin D deficiency, unspecified; N18.30 Chronic kidney disease, stage 3 unspecified; Z95.2 Presence of prosthetic heart valve; E11.22 Type 2 diabetes mellitus with diabetic chronic kidney disease; I34.0 Nonrheumatic mitral (valve) insufficiency; D63.1 Anemia in chronic kidney disease; E21.3 Hyperparathyroidism, unspecified; E66.01 Morbid (severe) obesity due to excess calories; Z68.35 Body mass index [BMI] 35.0-35.9, adult; E78.00 Pure hypercholesterolemia, unspecified; K21.9 Gastro-esophageal reflux disease without esophagitis; Z96.653 Presence of artificial knee joint, bilateral; Z90.711 Acquired absence of uterus with remaining cervical stump; Z82.49 Family history of ischemic heart disease and other diseases of the circulatory system; Z88.6 Allergy status to analgesic agent; I25.10 Atherosclerotic heart disease of native coronary artery without angina pectoris; I50.9 Heart failure, unspecified
CPT/HCPCS: 72072; 80048; 80053; 81003; 81015; 82306; 82550; 82553; 82962; 83970; 85025; 85027; 87086; 93005; 96361; 96374; 97162; 97166; 97535; 99285

== ENCOUNTER → 2024-05-10 10:28 | Outpatient (REF) | payer OTHER, SELFPAY ==
[2024-05-10 11:24] LABS: Hematocrit 27.2 % (37.0-47.0); Hemoglobin 9.6 g/dL (12.0-16.0); Mean Corp Hgb Conc. 35.3 g/dL (33.0-37.0); Mean Corpuscular Hgb 32.8 pg (27.0-31.0); Mean Corpuscular Volume 92.8 fL (81.0-99.0); Mean Platelet Volume 12.1 fL (7.4-10.4); Platelet Count 184 10^3/uL (130-400); Red Blood Cell Count 2.93 10^6/uL (4.20-5.40); Red Cell Dist. Width 12.6 % (11.5-14.5); White Blood Cell Count 5.5 10^3/uL (4.8-10.8)
[2024-05-10 11:28] LABS: ALT (SGPT) 31 U/L (0-35); AST (SGOT) 34 U/L (14-36); Albumin 3.5 g/dl (3.5-5.0); Alkaline Phosphatase 94 U/L (38-126); Blood Urea Nitrogen 23 mg/dl (7-17); Calcium 10.9 mg/dl (8.4-10.2); Carbon Dioxide 24 mmol/L (22-30); Chloride 103 mmol/L (98-107); Glucose 164 mg/dl (70-99); Sodium 137 mmol/L (135-145); Total Bilirubin 0.7 mg/dl (0.2-1.3); Total Protein 5.6 g/dl (6.3-8.2); eGFR 41.06
[2024-05-10 11:45] LABS: Vitamin D, 25-OH*** 20.5 ng/mL (30-80)
[2024-05-12 08:48] LABS: Intact PTH 370.3 pg/ml (13.6-85.8)
== END ==
LOC: OLABP 10:28
PROVIDERS: ATTENDING PHYSICIAN Family Medicine
DX: N25.81 Secondary hyperparathyroidism of renal origin (principal); M62.59 Muscle wasting and atrophy, not elsewhere classified, multiple sites; M62.82 Rhabdomyolysis; M62.81 Muscle weakness (generalized); N18.30 Chronic kidney disease, stage 3 unspecified; I13.0 Hypertensive heart and chronic kidney disease with heart failure and stage 1 through stage 4 chronic kidney disease, or unspecified chronic kidney disease; E11.9 Type 2 diabetes mellitus without complications; I50.9 Heart failure, unspecified; I34.0 Nonrheumatic mitral (valve) insufficiency; I35.0 Nonrheumatic aortic (valve) stenosis; D64.9 Anemia, unspecified; E87.1 Hypo-osmolality and hyponatremia
CPT/HCPCS: 36415; 80053; 82306; 83970; 85027

== ENCOUNTER 2024-07-04 15:44 | Observation (INO) | payer MEDICARE, OTHER, SELFPAY ==
[2024-07-04] VITALS (9 sets, daily range): BP systolic 137–185; BP diastolic 39–68; PULSE 76; O2SAT 98; BMI 32.0
--- NOTE | 2024-07-04 08:38 | ED.GENMED ---
History of Present Illness
General
Chief Complaint: Musculo-Skeletal Complaint
Source: patient and family
Time Seen by Provider: 07/04/24 07:38
History of Present Illness
History of Present Illness:
84-year-old female with past medical history of CAD, CHF, valvular dysfunction, renal insufficiency, ftm-bbegdnd-zbejntlbo diabetes presenting to the ER via EMS from [facility] for evaluation after she had an accidental fall yesterday while going
to her annual eye doctor stating she fell onto her left side and since that time has had gradually increased pain to the left arm and hip with diminished range of motion and ability to ambulate. Patient at baseline already has some ambulatory
dysfunction and normally uses a walker to get around but was having a hard time doing this at home. Patient reports no known head injury and there is no use of anticoagulants. No other concerns at this time.
Past History
Past History
ED Past Medical History: CAD, CHF, GERD, HTN, Hypercholesterolemia and NIDDM
ED Past Surgical History: Cholecystectomy, Gynecological (Partial hysterectomy) and Orthopedic (Left knee arthroscopy, bilateral total knee replacement)
Social History
Tobacco: Non-smoker
Alcohol: None
Drug: None
Personal: Single
Living: alone
Employment: Retired
Family History
Family History: Other (Noncontributory)
Phy Exam
Physical Exam
Physical Exam:
GENERAL: Alert , in no apparent distress
HEAD: NCAT
EYE: clear conjunctiva
NECK: Supple
ENT: o/p clr, mmm.
CARDIAC: Regular rate and rhythm .
LUNGS: Clear breath sounds bilaterally, no acute respiratory distress, no wheezes/rales/rhonchi
NEUROLOGICAL: Alert and oriented
SKIN: Warm and dry, skin intact.
MUSCULOSKELETAL: No edema, well perfused. LLE: no focal ttp however has difficulty with ROM at the left knee and hip. RLE: no focal ttp. able to ROM the right hip but limited mobility is around baseline. LUE: no focal ttp. allows for active and
passive ROM with minimal discomfort. NVI.
PSYCH: Normal and appropriate interaction.
Scores
Heart Failure Risk
Heart Failure Risk Score: Not Applicable
Heart Score for Chest Pain Patients
STEMI patient?: Not applicable
Withdrawal Assessment of Alcohol
Withdrawal Assessment Completed?: Not applicable
Course
Orders/Labs/Results
Orders:
Orders
07/04/24 08:14
Case Management Consult ONCE
Case Management Consult: Discharge Planning
Comment: will need rehab/SNF
CR Elbow - Left Min 3 Views Urgent
Comment:
Reason For Exam: fall, pain
CR Hip - LT w/wo Pel 2-3 Vw* Urgent
Comment:
Reason For Exam: fall, pain
Include a pelvis x-ray?: Yes
CR Shoulder, Trauma - Left Urgent
Comment:
Reason For Exam: fall, pain
Physical Therapy Consult [Pt Eval And Treat] Urgent
Activity Level: Ambulate
07/04/24 08:15
CT Head W/o Iv Contrast Urgent
Comment:
Reason For Exam: fall, possible head injury
07/04/24 Lunch
1800 calorie (15 carb) Diabetic
At Your Request: Full Participation
07/04/24 10:35
Sling Left-Treatment ONCE
07/04/24 12:44
Basic Metabolic Panel Urgent
Complete Blood Count/With Diff Urgent
07/04/24 12:45
Code Status As Directed
Resuscitation Status: Full Code
Bisacodyl [Dulcolax] 10 mg RECTAL [id number] PRN
Docusate W/Senna [Senokot-S] 1 tablet PO BIDPRN PRN
Polyethylene Glycol Powder [Miralax] 17 grams PO DAILYPRN PRN
07/04/24 12:46
Activity As Directed
Activity Level: With Assistance
Vital Signs As Directed
Frequency: Per unit guidelines
07/04/24 12:49
DX Deep Vein Thrombosis Video Routine
07/04/24 12:53
CR Knee - Left 1 Or 2 Views Routine
Comment:
Reason For Exam: Pain after fall, r/o frx
07/04/24 16:00
Heparin 5,000 units SC Q8
Abnormal Lab Results
07/04/24
12:44
RBC 3.49 L 10^6/uL
(4.20-5.40)
Hgb 10.9 L g/dL
(12.0-16.0)
Hct 32.8 L %
(37.0-47.0)
MCH 31.2 H pg
(27.0-31.0)
MPV 11.8 H fL
(7.4-10.4)
Absolute Neuts (auto) 6.7 H 10^3/uL
(1.4-6.5)
Absolute Lymphs (auto) 0.7 L 10^3/uL
(1.2-3.4)
Absolute Monos (auto) 0.9 H 10^3/uL
(0.1-0.6)
Neutrophils % 79.0 H %
(42.2-75.2)
Lymphocytes % 7.8 L %
(20.5-51.1)
Monocytes % 11.1 H %
(1.7-9.3)
BUN 31 H mg/dl
(7-17)
Creatinine 1.3 H mg/dL
(0.6-1.0)
Glucose 267 H mg/dl
(70-99)
Calcium 11.0 H mg/dl
(8.4-10.2)
07/04/24 12:44
07/04/24 12:44
Vital Signs
Initial and Last Documented VS:
Initial Vital Signs
Temp Pulse Resp Pulse Ox
98.6 F 83 18 96
07/04/24 07:20 07/04/24 07:20 07/04/24 07:20 07/04/24 07:20
Last Documented Vital Signs
Temp Pulse Resp BP Pulse Ox
98.6 F 69 18 137/39 95
07/04/24 07:20 07/04/24 13:00 07/04/24 13:00 07/04/24 10:49 07/04/24 13:00
MDM/Problems Addressed
Differential Diagnosis Includes:
fracture, contusion, sprain, ambulatory dysfunction
MDM/Problems Addressed:
84-year-old female presenting to the emergency department for evaluation after an accidental fall yesterday with left upper and left lower extremity pain. Patient does still allow for some active and passive range of motion but her left lower
extremity does have fairly limited range of motion. Patient is a little bit overweight and already has some ambulatory issues at baseline. I do have concern for her current state and being able to ambulate on her own. Will check x-rays and a CT
of the head. Physical therapy and case management consult ordered as I do suspect patient may likely need short-term rehab/SNF
*Radiology
Radiology exam reviewed: radiology read reviewed
*Pulse Oximetry
Patient hypoxic: no
*Critical Care Note
Total Time (30-74mins, 75-104mins- exclusive of procedures): Not Applicable
Patient Management
Discussion with other providers: Hospitalist
Escalation/DeEscalation of care consider admission/obs:
Patient is a small nondisplaced fracture at the distal humerus on the left. Remaining x-rays are without evidence for fracture. Patient seen by physical therapy who recommends [facility] facility. Case management states unable to place
patient today. Will admit for further evaluation until patient can be safely dispositioned. Hospitalist team is aware and accepts.
ED Attending Note
-
Portions of this chart may have been created with voice recognition software.� Occasional wrong word or��sound alike� substitutions may have occurred due to the inherent limitations of voice recognition software.
Discharge Plan
Departure
Patient Disposition: Admit
Date of Disposition: 07/04/24
Time of Disposition: 11:22
Presentation/result/management discussed w/ accepting MD/DO: Hospitalist
Discharge Problem:
Accidental fall, Closed fracture of distal end of left humerus, Ambulatory dysfunction
Prescriptions:
No Action
atorvastatin 40 mg Tablet
40 mg PO DAILY
carvedilol 25 mg Tablet
25 mg PO DAILY
Patient Comments:
07/04/24-patient only takes one a david even thought her prescription states bid
lisinopril 10 mg Tablet
10 mg PO DAILY
acetaminophen 325 mg Tablet
650 mg PO Q6HPRN PRN (Reason: MITCHELL, mild pain, or fever >101F) Qty: 0 0RF
furosemide 40 mg Tablet
40 mg PO DAILY Qty: 0 0RF
aspirin [Children's Aspirin] 81 mg Tablet,Chewable
81 mg PO DAILY Qty: 0 0RF
dapagliflozin propanediol 10 mg Tablet
10 mg PO DAILY Qty: 0 0RF
cholecalciferol (vitamin D3) [Vitamin D3] 50 mcg (2,000 unit) tablet
50 mcg PO DAILY 30 Days Qty: 30 0RF
docusate sodium [Colace] 100 mg Capsule
100 mg PO DAILYPRN PRN (Reason: constipation)
Referrals:
Adry Ahmadi MD [Family Provider] -
Interventions
Interventions:
*Risk Screen - Suicide Last Done: 07/04/24 07:20
*General Assessment Last Done: 07/04/24 07:20
*Neglect/Abuse Screening Last Done: 07/04/24 07:20
ED- Fall Risk Assessment Last Done: 07/04/24 13:07
*ED COVID-19 Vaccine History Last Done: 07/04/24 07:23
ED-Musculoskeletal Assessment Last Done: 07/04/24 08:29
ED- Neurological Assessment Last Done: 07/04/24 08:29
ED-Skin Assessment Last Done: 07/04/24 08:29
Discharge Date and Time
Print Language: [place]
--- NOTE | 2024-07-04 09:08 | CM ---
Addendum entered by Verna Dacosta RN 07/04/24 14:44:
CM left message for Candy, patient's niece, to discuss SNF options. [facility] has accepted. Awaiting family to return call.
Addendum entered by Verna Dacosta RN 07/04/24 11:30:
Cm spoke with patient and niece in room. THey are agreeable to SNF. Patient is eligible for the [facility] waiver program. Family is requesting facilities close to [place]. CM will send referrals to all facilities that participate in [facility] program.
CM updated Emilie from [facility]
Original Note:
CM reviewed medical records. Patient is eligible for placement under the [facility] waiver program. CM will follow PT recommendations to start placement efforts.
[2024-07-04 12:55] LABS: % Basophils 0.5 % (0-2); % Eosinophils 1.1 % (0-6); % Immature Granulocytes 0.5 % (0-0.5); % Lymphocytes 7.8 % (20.5-51.1); % Monocytes 11.1 % (1.7-9.3); Absolute Eosinophils 0.1 10^3/uL (0-0.7); Absolute Lymphocytes 0.7 10^3/uL (1.2-3.4); Absolute Monocytes 0.9 10^3/uL (0.1-0.6); Absolute Neutrophils 6.7 10^3/uL (1.4-6.5); Hematocrit 32.8 % (37.0-47.0); Hemoglobin 10.9 g/dL (12.0-16.0); Mean Corp Hgb Conc. 33.2 g/dL (33.0-37.0); Mean Corpuscular Hgb 31.2 pg (27.0-31.0); Mean Platelet Volume 11.8 fL (7.4-10.4); Nucleated Red Blood Cells % 0 %; Platelet Count 246 10^3/uL (130-400); Red Blood Cell Count 3.49 10^6/uL (4.20-5.40); Red Cell Dist. Width 12.8 % (11.5-14.5); White Blood Cell Count 8.5 10^3/uL (4.8-10.8)
[2024-07-04 13:13] LABS: Blood Urea Nitrogen 31 mg/dl (7-17); Carbon Dioxide 24 mmol/L (22-30); Chloride 101 mmol/L (98-107); Glucose 267 mg/dl (70-99); Potassium 4.5 mmol/L (3.5-5.1); Sodium 137 mmol/L (135-145); eGFR 41.06
--- NOTE | 2024-07-04 14:33 | HPS.HSE ---
Family Physician
-
Family Physician: Adry Ahmadi
Chief Complaint
-
Ambulatory dysfunction
History of Present Illness
Ms. Pride is an 84-year-old female with a medical history of CAD, CHF, valvular dysfunction, CKD with chronic hypercalcemia, NIDDM, anemia of chronic disease, and ambulatory dysfunction (uses walker at baseline) who presents via EMS from [place] after a fall 1 day prior to arrival. She had mechanical fall onto her left side yesterday on her way to her eye doctor's appointment. She did not hit her head and is not on anticoagulation. She complains of left and left knee pain. In the
ED she was hemodynamically stable. Labs were significant for hemoglobin 10.9, calcium 11.0, and creatinine 1.3 (all of which were close to baseline). CT imaging of the brain showed no acute intracranial abnormalities. Left shoulder x-ray showed
severe AC joint and moderate glenohumeral joint osteoarthritis with no acute findings. Imaging of her hips showed mild bilateral osteoarthritis. Left elbow x-ray showed acute nondisplaced distal left humeral fracture through the mid trochlea with
disruption of the articular surface. She does not require acute orthopedic intervention. She will need skilled rehab as she will need assistance with ambulation. She is being admitted to observation while awaiting SNF placement.
Medical History
Past Medical History
Past Medical History: Reports CAD, CHF, NIDDM, Renal Failure, Valvular Disease and Other (Ambulatory dysfunction)
Past Surgical History: Reports Cholecystectomy, Gynocological (Partial hysterectomy) and Orthopedic (Bilateral TKA)
Social History
Tobacco: Non-smoker
Alcohol: None
Drug: None
Personal: Single
Living: Alone
Employment: Retired
Family History
Family History: Not pertinent
Allergies / Home Medications
Allergies reflects when Allergies were last updated in [facility].
Home Medications with original date entered in [facility]
Allergy/Medication List:
NSAIDs: Unknown reaction, however tolerates aspirin at home
Review of Systems
-
History Source: Patient
A 12 point ROS was completed and negative except as noted: Yes
Physical Exam
Vital Signs
Vital Signs
Temp Pulse Resp BP Pulse Ox
98.6 F 69 18 137/39 95
07/04/24 07:20 07/04/24 13:00 07/04/24 13:00 07/04/24 10:49 07/04/24 13:00
Physical Exam
General: No Apparent Distress
Laboratory Results
-
07/04/24 12:44
07/04/24 12:44
Data Reviewed
-
Lab Data: Labs Reviewed by me
Impression/Plan
-
Gen-AAOx3, NAD
HEENT-NC, AT, anicteric, clear oral mm
Neck-supple
CV-reg, no M, +S1/S2
Lungs-clear B/L
Abd-soft, NT, ND
Musculoskeletal-no edema, left elbow and left knee TTP
Skin-warm and dry, well-healed surgical scars anterior knees bilaterally
Neuro-grossly non-focal
Psych-calm, cooperative
Ms. Pride is an 84-year-old female with a medical history of CAD, HFpEF, valvular dysfunction (status post TAVR), CKD stage III with chronic hypercalcemia, NIDDM, anemia of chronic disease, and ambulatory dysfunction (uses walker at baseline) who
presents via EMS from [facility] after a fall 1 day prior to arrival. She had mechanical fall onto her left side yesterday on her way to her eye doctor's appointment. She did not hit her head and is not on anticoagulation. She complains of left
and left knee pain. In the ED she was hemodynamically stable. Labs were significant for hemoglobin 10.9, calcium 11.0, and creatinine 1.3 (all of which were close to baseline). CT imaging of the brain showed no acute intracranial abnormalities.
Left shoulder x-ray showed severe AC joint and moderate glenohumeral joint osteoarthritis with no acute findings. Imaging of her hips showed mild bilateral osteoarthritis. Left elbow x-ray showed acute nondisplaced distal left humeral fracture
through the mid trochlea with disruption of the articular surface. She does not require acute orthopedic intervention. She will need skilled rehab as she will need assistance with ambulation. She is being admitted to observation while awaiting
SNF placement.
Ambulatory dysfunction:
-Evaluated by PT/OT who recommended SNF, weightbearing as tolerated, ambulate with assistance
NIDDM:
-Does not appear to be on any other ambulatory antihyperglycemic medications besides dapagliflozin which we will continue
-Will add sliding scale insulin as well
-Diabetic diet
HFpEF:
-Currently compensated
-Continue home carvedilol
-Afterload reduction with home lisinopril 10 mg
-Continue home Lasix 40 mg daily, dapagliflozin daily
CKD stage III:
-Appears to be at baseline renal function
-Continue home lisinopril, monitor
CAD:
-Stable
-Continue daily aspirin and statin
CODE STATUS: Full code
--- NOTE | 2024-07-04 16:52 | W.PN.UPDATE ---
Update Note
Progress Note Update
Reviewed with primary attending as well as case management.
Briefly patient is 84 years old female with multiple comorbidities including heart failure preserved EF, type 2 diabetes, chronic kidney disease, coronary artery disease who presented with falls and ambulatory dysfunction and according to physical
therapy evaluation requiring placement to long-term facility for debilitation.
--- NOTE | 2024-07-04 17:21 | PTCARENOTE ---
Pt received from ED via wheelchair. Pt walked with slow steady gait to the standing scale and then to bed. Pt oriented to staff, environment and call light system. Personal items and call light within reach.
[2024-07-04 17:28] LABS: Glucose - Point of Care 226 mg/dl (70-99)
[2024-07-04] MEDS: HEPARIN 5000 UNITS SC (17:54)
[2024-07-04] MEDS: NOVOLOG FLEXPEN-LOW RESISTANCE 2 UNITS SC (18:38)
[2024-07-04 22:03] LABS: Glucose - Point of Care 170 mg/dl (70-99)
[2024-07-05] MEDS: HEPARIN 5000 UNITS SC ×3 (00:51→16:15)
[2024-07-05 06:00] VITALS: BMI 31.9
[2024-07-05 07:41] LABS: Glucose - Point of Care 149 mg/dl (70-99)
[2024-07-05 07:54] VITALS: BP 140/50
[2024-07-05] MEDS: NOVOLOG FLEXPEN-LOW RESISTANCE SC (08:48)
[2024-07-05] MEDS: FARXIGA 10 MG PO (08:49)
[2024-07-05] MEDS: LOW STRENGTH ASPIRIN 81 MG PO (08:49)
[2024-07-05] MEDS: LASIX 40 MG PO (08:49)
[2024-07-05] MEDS: LIPITOR 40 MG PO (08:49)
[2024-07-05] MEDS: ZESTRIL 10 MG PO (08:50)
[2024-07-05] MEDS: VITAMIN D3 (cholecalciferol) 50 MCG PO (08:50)
[2024-07-05] MEDS: COREG 25 MG PO (08:53)
--- NOTE | 2024-07-05 11:13 | CM ---
Addendum entered by Vonda Jane 07/05/24 13:37:
Patient to transfer to [facility] today by w/c [facility] is aware of cost of transportation $125, slate picker between 4-4:30pm.
Addendum entered by Vonda Jane 07/05/24 11:25:
[facility]
Report [phone]

Original Note:
express manager reviewed patient's chart and met with patient this am and patient has been approved through [facility] for MSSP program and has approved for skilled placement. Braulio has selected [facility] and there is a bed available at
[facility] today for patient.
Plan; Skilled placement at [facility]
[2024-07-05 11:15] VITALS: BMI 31.9
[2024-07-05 11:28] LABS: Glucose - Point of Care 189 mg/dl (70-99)
[2024-07-05] MEDS: NOVOLOG FLEXPEN-LOW RESISTANCE 1 UNITS SC ×2 (11:53→17:54)
[2024-07-05 11:58] VITALS: BP 122/51; PULSE 68; O2SAT 95
--- NOTE | 2024-07-05 12:44 | W.DCSUMMARY ---
Discharge Summary
Discharge Data
Date of Admission: 07/04/24
Date of Discharge: 07/05/24
-
Pending Results: No
Hospital Course
Ms. Pride is an 84-year-old female with a medical history of CAD, CHF, valvular dysfunction, CKD with chronic hypercalcemia, NIDDM, anemia of chronic disease, and ambulatory dysfunction (uses walker at baseline) who presented via EMS from [place] after a fall 1 day prior to arrival. She had mechanical fall onto her left side on her way to her eye doctor's appointment. She did not hit her head and is not on anticoagulation. She also reports left knee pain. In the ED she was
hemodynamically stable. Labs were significant for hemoglobin 10.9, calcium 11.0, and creatinine 1.3 (all of which were close to baseline). CT imaging of the brain showed no acute intracranial abnormalities. Left shoulder x-ray showed severe AC
joint and moderate glenohumeral joint osteoarthritis with no acute findings. Imaging of her hips showed mild bilateral osteoarthritis. Left elbow x-ray showed acute nondisplaced distal left humeral fracture through the mid trochlea with disruption
of the articular surface. Left knee x-ray showed no acute fractures, dislocations, or effusions. She does not require acute orthopedic intervention. She will need skilled rehab as she will need assistance with ambulation. Arrangements have been
made for SNF placement and she will be discharged to SNF at this time.
Discharge Plan
-
Patient Disposition: Shelter/SNF
Discharge Diagnosis/Procedures: Ambulatory dysfunction
Diet: Diabetic, Carb Controlled
Activity: With assistance
Other Services: PT and OT
Activity Restrictions/Additional Instructions:
Ms. Pride is an 84-year-old female with a medical history of CAD, CHF, valvular dysfunction, CKD with chronic hypercalcemia, NIDDM, anemia of chronic disease, and ambulatory dysfunction (uses walker at baseline) who presented via EMS from [place] after a fall 1 day prior to arrival. She had mechanical fall onto her left side on her way to her eye doctor's appointment. She did not hit her head and is not on anticoagulation. She also reports left knee pain. In the ED she was
hemodynamically stable. Labs were significant for hemoglobin 10.9, calcium 11.0, and creatinine 1.3 (all of which were close to baseline). CT imaging of the brain showed no acute intracranial abnormalities. Left shoulder x-ray showed severe AC
joint and moderate glenohumeral joint osteoarthritis with no acute findings. Imaging of her hips showed mild bilateral osteoarthritis. Left elbow x-ray showed acute nondisplaced distal left humeral fracture through the mid trochlea with disruption
of the articular surface. Left knee x-ray showed no acute fractures, dislocations, or effusions. She does not require acute orthopedic intervention. She will need skilled rehab as she will need assistance with ambulation. Arrangements have been
made for SNF placement and she will be discharged to SNF at this time.
Referrals:
Orthopaedic,Provider [Non-Admitting Privileges] -
Adry Ahmadi MD [Family Provider] -
Prescriptions:
Continued
atorvastatin 40 mg Tablet
40 mg PO DAILY
carvedilol 25 mg Tablet
25 mg PO DAILY
Patient Comments:
07/04/24-patient only takes one a david even thought her prescription states bid
lisinopril 10 mg Tablet
10 mg PO DAILY
acetaminophen 325 mg Tablet
650 mg PO Q6HPRN PRN (Reason: MITCHELL, mild pain, or fever >101F) Qty: 0 0RF
furosemide 40 mg Tablet
40 mg PO DAILY Qty: 0 0RF
aspirin [Children's Aspirin] 81 mg Tablet,Chewable
81 mg PO DAILY Qty: 0 0RF
dapagliflozin propanediol 10 mg Tablet
10 mg PO DAILY Qty: 0 0RF
cholecalciferol (vitamin D3) [Vitamin D3] 50 mcg (2,000 unit) tablet
50 mcg PO DAILY 30 Days Qty: 30 0RF
docusate sodium [Colace] 100 mg Capsule
100 mg PO DAILYPRN PRN (Reason: constipation)
Discharge Orders:
Discharge Patient (As Directed); Ordered 07/05/24
Ordered By: Max Ortiz
Discharge Date and Time
Print Language: CANADIAN
--- NOTE | 2024-07-05 12:44 | W.PN.HOSP.TC ---
Today's Communication/Plan
-
Assessment / Plan
Assessment / Plan
Ms. Pride is an 84-year-old female with a medical history of CAD, CHF, valvular dysfunction, CKD with chronic hypercalcemia, NIDDM, anemia of chronic disease, and ambulatory dysfunction (uses walker at baseline) who presented via EMS from [place] after a fall 1 day prior to arrival. She had mechanical fall onto her left side on her way to her eye doctor's appointment. She did not hit her head and is not on anticoagulation. She also reports left knee pain. In the ED she was
hemodynamically stable. Labs were significant for hemoglobin 10.9, calcium 11.0, and creatinine 1.3 (all of which were close to baseline). CT imaging of the brain showed no acute intracranial abnormalities. Left shoulder x-ray showed severe AC
joint and moderate glenohumeral joint osteoarthritis with no acute findings. Imaging of her hips showed mild bilateral osteoarthritis. Left elbow x-ray showed acute nondisplaced distal left humeral fracture through the mid trochlea with disruption
of the articular surface. Left knee x-ray showed no acute fractures, dislocations, or effusions. She does not require acute orthopedic intervention. She will need skilled rehab as she will need assistance with ambulation. Arrangements have been
made for SNF placement and she will be discharged to SNF at this time.
Ambulatory dysfunction:
-Evaluated by PT/OT who recommended SNF, weightbearing as tolerated, ambulate with assistance
-Plan for discharge to SNF today
NIDDM:
-Does not appear to be on any other ambulatory antihyperglycemic medications besides dapagliflozin which we will continue
-sliding scale insulin as well
-Diabetic diet
HFpEF:
-Currently compensated
-Continue home carvedilol
-Afterload reduction with home lisinopril 10 mg
-Continue home Lasix 40 mg daily, dapagliflozin daily
CKD stage III:
-Appears to be at baseline renal function
-Continue home lisinopril, monitor
CAD:
-Stable
-Continue daily aspirin and statin
CODE STATUS: Full code
Anticipated Discharge: Today
Subjective/Interval History
-
Date of Service: July 05, 2024
Ms. Pride was seen and examined at bedside this morning. No acute events overnight. She feels generally well and is awaiting SNF placement.
Objective Data
-
Vital Signs:
Vital Signs
Temp Pulse Resp BP Pulse Ox
98.2 F 73 18 140/50 95
07/05/24 07:54 07/05/24 07:54 07/05/24 07:54 07/05/24 07:54 07/05/24 07:54
I&O
07/04/24 07/05/24 07/06/24
06:59 06:59 06:59
Intake Total 120 / 120
Output Total 350 / 350
Balance -230 / -230
Review of Systems
-
History Source: Patient
All other systems: Reviewed and negative
Physical Exam
-
General: No Apparent Distress and Comfortable
HEENT: Normocephalic and Atraumatic
Respiratory: Clear to Auscultation and Non Labored Respirations
Cardiac: Regular Rhythm and S1/S2
GI: Soft and Nontender
Musculoskeletal: No Edema and Other (Left arm in sling with TTP at left elbow)
Skin: Warm and Dry
Neuro: Awake and Alert
Psych: Calm
[2024-07-05 15:28] VITALS: BP 162/53
[2024-07-05 16:53] LABS: Glucose - Point of Care 176 mg/dl (70-99)
[2024-07-05 18:40] VITALS: BP 147/57
== END 2024-07-05 18:50 ==
LOC: 3 WEST ACU 15:44
PROVIDERS: Physician Assistant Medical; ADMITTING PHYSICIAN Internal Medicine; EMERGENCY PHYSICIAN Emergency Medicine; FAMILY PHYSICIAN Internal Medicine
DX: S42.402A Unspecified fracture of lower end of left humerus, initial encounter for closed fracture (principal); M25.552 Pain in left hip; I25.10 Atherosclerotic heart disease of native coronary artery without angina pectoris; N18.30 Chronic kidney disease, stage 3 unspecified; I13.0 Hypertensive heart and chronic kidney disease with heart failure and stage 1 through stage 4 chronic kidney disease, or unspecified chronic kidney disease; E11.22 Type 2 diabetes mellitus with diabetic chronic kidney disease; R26.2 Difficulty in walking, not elsewhere classified; W18.39XA Other fall on same level, initial encounter; Y93.01 Activity, walking, marching and hiking; Y92.9 Unspecified place or not applicable; E83.52 Hypercalcemia; D63.1 Anemia in chronic kidney disease; M19.012 Primary osteoarthritis, left shoulder; M16.0 Bilateral primary osteoarthritis of hip; H70.92 Unspecified mastoiditis, left ear; G31.9 Degenerative disease of nervous system, unspecified; I50.32 Chronic diastolic (congestive) heart failure; Z90.49 Acquired absence of other specified parts of digestive tract; Z96.653 Presence of artificial knee joint, bilateral; Z79.82 Long term (current) use of aspirin
CPT/HCPCS: 70450; 73030; 73080; 73502; 73560; 80048; 82962; 85025; 97530; 99285; G0378

== ENCOUNTER 2024-10-01 09:06 | Emergency (ER) | payer MEDICARE, OTHER, SELFPAY ==
[2024-10-01] VITALS (11 sets, daily range): BP systolic 111–136; BP diastolic 45–78; O2SAT 100; BMI 28.0
--- NOTE | 2024-10-01 10:05 | ED.GENMED ---
History of Present Illness
General
Chief Complaint: Fall
Source: patient
Exam Limitations: none
Time Seen by Provider: 10/01/24 09:48
Nursing documentation reviewed up to this point in time: agreed with
History of Present Illness
History of Present Illness:
84-year-old female past medical history of CHF CAD hypertension hyperlipidemia presenting to the emergency department today after she had 2 falls. 1 fall she claims that she lost her footing while she was walking with her walker. She was doing
more than she typically does. The second time she fell she got her foot caught on the edge of the room going to the bathroom. She denies any ongoing symptoms denies any injuries from the falls falls were slow and did not result in any trauma. She
has no head pain no numbness or weakness no neck pain no recent illnesses no urinary symptoms.
Past History
Past History
ED Past Medical History: CAD, CHF, GERD, HTN, Hypercholesterolemia and NIDDM
ED Past Surgical History: Cholecystectomy, Gynecological (Partial hysterectomy) and Orthopedic (Left knee arthroscopy, bilateral total knee replacement)
Social History
Tobacco: Non-smoker
Alcohol: None
Drug: None
Personal: Single
Living: alone
Employment: Retired
Family History
Family History: Other (Noncontributory)
Review of Systems
Review of Systems
Allergies reviewed?: Yes
All Other Systems: ROS reviewed and negative except as documented in HPI and ROS
Phy Exam
Physical Exam
Physical Exam:
GENERAL: Alert , in no apparent distress
EYE: pupils equal and reactive
NECK: Supple, no significant adenopathy.
ENT: o/p clr, mmm.
CARDIAC: Regular rate and rhythm .
LUNGS: Clear breath sounds bilaterally, no acute respiratory distress, no wheezes/rales/rhonchi
ABDOMEN: Soft, without focal tenderness, no r/g, no cvat
NEUROLOGICAL: Alert and oriented, no focal neuro deficits
SKIN: Warm and dry, skin intact.
MUSCULOSKELETAL: No edema, well perfused.
PSYCH: Normal and appropriate interaction.
Course
Orders/Labs/Results
Orders:
Orders
10/01/24 10:03
EKG [Electrocardiogram (*1)] Urgent
Reason for Study: Fatigue / Weakness
Urinalysis Reflex To Culture Urgent
10/01/24 10:04
EKG- Treatment ONCE
10/01/24 10:21
CBC/With Diff [Complete Blood Count/With Diff] Urgent
CMP [Comprehensive Metabolic Panel] Urgent
Magnesium Urgent
TSH Urgent
10/01/24 10:41
Pt Eval And Treat Urgent
Activity Level: Ambulate
10/01/24 11:48
Case Management Consult ONCE
Case Management Consult: Discharge Planning
10/01/24 12:18
Case Management Consult ONCE
Case Management Consult: VN/Home Care
Abnormal Lab Results
10/01/24
10:21
RBC 3.75 L 10^6/uL
(4.20-5.40)
Hgb 11.9 L g/dL
(12.0-16.0)
Hct 35.3 L %
(37.0-47.0)
MCH 31.7 H pg
(27.0-31.0)
MPV 11.7 H fL
(7.4-10.4)
Absolute Lymphs (auto) 0.9 L 10^3/uL
(1.2-3.4)
Lymphocytes % 13.6 L %
(20.5-51.1)
Creatinine 1.2 H mg/dL
(0.6-1.0)
Glucose 200 H mg/dl
(70-99)
Calcium 10.9 H mg/dl
(8.4-10.2)
Total Protein 5.9 L g/dl
(6.3-8.2)
Albumin 3.4 L g/dl
(3.5-5.0)
10/01/24 10:21
10/01/24 10:21
Vital Signs
Initial and Last Documented VS:
Initial Vital Signs
Temp Pulse Resp BP Pulse Ox
98.0 F 78 16 136/78 98
10/01/24 09:11 10/01/24 09:11 10/01/24 09:11 10/01/24 09:11 10/01/24 09:11
Last Documented Vital Signs
Temp Pulse Resp BP Pulse Ox
98.0 F 78 16 119/50 98
10/01/24 09:11 10/01/24 09:11 10/01/24 09:11 10/01/24 10:00 10/01/24 10:00
MDM/Problems Addressed
MDM/Problems Addressed:
84-year-old female presenting to the emergency department after 2 falls from down the [place]. She is no complaints at this time. Denies any significant injuries from the falls. Has no pain. No recent illnesses. Vital signs are normal on arrival.
Labs unremarkable. Patient in no distress here. Patient walking with steady gait with PT otherwise case management was consulted to help with appropriate outpatient resources. Stable for outpatient management return precautions given.
*Critical Care Note
Total Time (30-74mins, 75-104mins- exclusive of procedures): Not Applicable
ED Attending Note
-
Portions of this chart may have been created with voice recognition software.� Occasional wrong word or��sound alike� substitutions may have occurred due to the inherent limitations of voice recognition software.
Discharge Plan
Departure
Patient Disposition: Home (Routine Discharge)
Date of Disposition: 10/01/24
Time of Disposition: 14:02
Patient with high blood pressure during this ER visit?: No
Condition: Good
Covid-19: Not Applicable
Discharge Problem:
Ambulatory dysfunction, Accidental fall
Instructions: Preventing falls in adults
Prescriptions:
No Action
atorvastatin 40 mg Tablet
40 mg PO DAILY
carvedilol 25 mg Tablet
25 mg PO DAILY
Patient Comments:
07/04/24-patient only takes one a david even thought her prescription states bid
lisinopril 10 mg Tablet
10 mg PO DAILY
acetaminophen 325 mg Tablet
650 mg PO Q6HPRN PRN (Reason: MITCHELL, mild pain, or fever >101F) Qty: 0 0RF
furosemide 40 mg Tablet
40 mg PO DAILY Qty: 0 0RF
aspirin [Children's Aspirin] 81 mg Tablet,Chewable
81 mg PO DAILY Qty: 0 0RF
dapagliflozin propanediol 10 mg Tablet
10 mg PO DAILY Qty: 0 0RF
cholecalciferol (vitamin D3) [Vitamin D3] 50 mcg (2,000 unit) tablet
50 mcg PO DAILY 30 Days Qty: 30 0RF
docusate sodium [Colace] 100 mg Capsule
100 mg PO DAILYPRN PRN (Reason: constipation)
Referrals:
Adry Ahmadi MD [Family Provider] -
Activity Restrictions/Additional Instructions:
You came to the emergency department today after a fall. Here your reassuring assessment. Your sugar level was slightly elevated please keep a close eye on this. Otherwise follow-up closely as an outpatient with a primary care doctor for ongoing
management. Return for any worsening, new or concerning symptoms.
Interventions
Interventions:
*Risk Screen - Suicide Last Done: 10/01/24 09:11
*General Assessment Last Done: 10/01/24 10:08
*Neglect/Abuse Screening Last Done: 10/01/24 09:11
*ED COVID-19 Vaccine History Last Done: 10/01/24 10:08
ED-Musculoskeletal Assessment Last Done: 10/01/24 10:08
ED- Neurological Assessment Last Done: 10/01/24 10:08
ED-Skin Assessment Last Done: 10/01/24 10:08
Discharge Date and Time
Print Language: URDU
[2024-10-01 10:27] LABS: % Basophils 0.6 % (0-2); % Eosinophils 3.1 % (0-6); % Immature Granulocytes 0.5 % (0-0.5); % Lymphocytes 13.6 % (20.5-51.1); % Monocytes 8.7 % (1.7-9.3); % Neutrophils 73.5 % (42.2-75.2); Absolute Eosinophils 0.2 10^3/uL (0-0.7); Absolute Lymphocytes 0.9 10^3/uL (1.2-3.4); Absolute Monocytes 0.6 10^3/uL (0.1-0.6); Absolute Neutrophils 4.8 10^3/uL (1.4-6.5); Hematocrit 35.3 % (37.0-47.0); Hemoglobin 11.9 g/dL (12.0-16.0); Mean Corp Hgb Conc. 33.7 g/dL (33.0-37.0); Mean Corpuscular Hgb 31.7 pg (27.0-31.0); Mean Corpuscular Volume 94.1 fL (81.0-99.0); Mean Platelet Volume 11.7 fL (7.4-10.4); Nucleated Red Blood Cells % 0 %; Platelet Count 211 10^3/uL (130-400); Red Blood Cell Count 3.75 10^6/uL (4.20-5.40); Red Cell Dist. Width 13.5 % (11.5-14.5); White Blood Cell Count 6.5 10^3/uL (4.8-10.8)
[2024-10-01 11:33] LABS: ALT (SGPT) 16 U/L (0-35); AST (SGOT) 19 U/L (14-36); Albumin 3.4 g/dl (3.5-5.0); Alkaline Phosphatase 112 U/L (38-126); Blood Urea Nitrogen 16 mg/dl (7-17); Calcium 10.9 mg/dl (8.4-10.2); Carbon Dioxide 25 mmol/L (22-30); Chloride 105 mmol/L (98-107); Estimated Creatinine Clearance 30 ml/min; Glucose 200 mg/dl (70-99); Magnesium 1.6 mg/dl (1.6-2.3); Potassium 4.3 mmol/L (3.5-5.1); Sodium 138 mmol/L (135-145); Total Protein 5.9 g/dl (6.3-8.2); eGFR 45.19
[2024-10-01 11:52] LABS: TSH 2.23 uIU/ml (0.47-4.68)
--- NOTE | 2024-10-01 12:39 | CM ---
Addendum entered by Alivia Rodgers 10/01/24 13:13:
Ride for 1430 pickup
Niece aware and she will call for payment of $90
Has made arrangements for [facility] to be there at 1600 for session today
Original Note:
ED CM consult for dc planning
Bedside meeting with pt
She resides alone in a 1st floor apartment in [facility]
Pt recently dc [facility] and current with S[facility]
Pt notes she and niyenny are workign on establishing caregivers through the state
Call with [facility] who noted that PCP would not certify pt to be Nursing Facility Clinically Eligible so does not meet waiver criteria
Educationed niyenny on OPTIONS program through [facility], she will call [facility] to have assessed
Per PT eval, VN recs
Referral to [facility] for [facility] with SW assist per niece's request for LTC services in the home
Isabel/Saira updated
Niece unable to transport home
She will pay for wheelchair van home, deputy clerk of superior court to arrange
VN order on chart
Discharge Disposition- home with [facility] via van
== END 2024-10-01 14:20 | disposition home or self-care (01) ==
LOC: EMR 09:06
PROVIDERS: Physician Assistant; EMERGENCY PHYSICIAN Emergency Medicine; FAMILY PHYSICIAN Internal Medicine
DX: Z04.3 Encounter for examination and observation following other accident (principal); W18.39XA Other fall on same level, initial encounter; Z91.81 History of falling; R26.2 Difficulty in walking, not elsewhere classified; I11.0 Hypertensive heart disease with heart failure; I50.9 Heart failure, unspecified; I25.10 Atherosclerotic heart disease of native coronary artery without angina pectoris; E11.9 Type 2 diabetes mellitus without complications; E78.00 Pure hypercholesterolemia, unspecified; Z90.49 Acquired absence of other specified parts of digestive tract
CPT/HCPCS: 99284; 80053; 83735; 84443; 85025; 93005

== ENCOUNTER 2024-10-04 13:21 | Inpatient (IN) | payer MEDICARE, OTHER, SELFPAY ==
[2024-10-04] VITALS (14 sets, daily range): BP systolic 95–160; BP diastolic 33–69; PULSE 66; O2SAT 95; BMI 28.8
[2024-10-04 08:44] LABS: % Basophils 0.5 % (0-2); % Eosinophils 2.7 % (0-6); % Immature Granulocytes 0.4 % (0-0.5); % Lymphocytes 17.5 % (20.5-51.1); % Monocytes 11.8 % (1.7-9.3); % Neutrophils 67.1 % (42.2-75.2); Absolute Eosinophils 0.2 10^3/uL (0-0.7); Absolute Monocytes 0.7 10^3/uL (0.1-0.6); Absolute Neutrophils 3.8 10^3/uL (1.4-6.5); Hematocrit 31.4 % (37.0-47.0); Hemoglobin 10.6 g/dL (12.0-16.0); Mean Corp Hgb Conc. 33.8 g/dL (33.0-37.0); Mean Corpuscular Hgb 31.7 pg (27.0-31.0); Mean Platelet Volume 11.3 fL (7.4-10.4); Nucleated Red Blood Cells % 0 %; Platelet Count 226 10^3/uL (130-400); Red Blood Cell Count 3.34 10^6/uL (4.20-5.40); Red Cell Dist. Width 13.3 % (11.5-14.5); White Blood Cell Count 5.7 10^3/uL (4.8-10.8)
--- NOTE | 2024-10-04 08:50 | ED.GENMED ---
History of Present Illness
General
Chief Complaint: Fall
Source: patient
Exam Limitations: none
Time Seen by Provider: 10/04/24 08:23
History of Present Illness
History of Present Illness:
84-year-old female presents via EMS from [facility] with complaints of generalized weakness and recurrent falls. She was here recently for the same. She has not been sustaining any injuries from the fall. She denies any pain. She is accompanied
by her niece who has been attempting to take care of her. There is too much care required for her to take care of her at home. The niece is at her wits end and is unable to further care. Patient denies chest pain abdominal pain shortness of
breath. The niece does note she has been eating well. The niece also notes that there is some confusion with her medication and the patient is unable to make decisions about her medication.
Past History
Past History
ED Past Medical History: CAD, CHF, GERD, HTN, Hypercholesterolemia and NIDDM
ED Past Surgical History: Cholecystectomy, Gynecological (Partial hysterectomy) and Orthopedic (Left knee arthroscopy, bilateral total knee replacement)
Social History
Tobacco: Non-smoker
Alcohol: None
Drug: None
Personal: Single
Living: alone
Employment: Retired
Family History
Family History: Other (Noncontributory)
Phy Exam
Physical Exam
Physical Exam:
General: Well-appearing female no acute respiratory distress
HEENT: NC/AT
Heart: Regular rate and rhythm lungs: Clear no wheeze
Abdomen is soft nontender nondistended
Extremities: No cyanosis or edema
Neurologic exam: Alert oriented to person and place no facial asymmetry no unilateral weakness
Musculoskeletal exam: No deformities good passive range of motion of the hips spine is nontender
Course
Orders/Labs/Results
Orders:
Orders
10/04/24 08:34
CMP [Comprehensive Metabolic Panel] Urgent
Complete Blood Count/With Diff Urgent
10/04/24 08:36
Case Management Consult ONCE
Case Management Consult: Discharge Planning
Requested By:: NURSING
Comment: Currently living in [place]. Responsible for her own meals. Frequent falls. Per maxx,
needs a higher level of care. Maxx @ bedside.
10/04/24 08:50
Case Management Consult ONCE
Case Management Consult: Discharge Planning
PT Consult [Pt Eval And Treat] Urgent
Activity Level: Ambulate
10/04/24 12:30
0.9% Sodium Chloride 500 ml [Nss] 500 ml IV BOLUS
Abnormal Lab Results
10/04/24
08:34
RBC 3.34 L 10^6/uL
(4.20-5.40)
Hgb 10.6 L g/dL
(12.0-16.0)
Hct 31.4 L %
(37.0-47.0)
MCH 31.7 H pg
(27.0-31.0)
MPV 11.3 H fL
(7.4-10.4)
Absolute Lymphs (auto) 1.0 L 10^3/uL
(1.2-3.4)
Absolute Monos (auto) 0.7 H 10^3/uL
(0.1-0.6)
Lymphocytes % 17.5 L %
(20.5-51.1)
Monocytes % 11.8 H %
(1.7-9.3)
BUN 22 H mg/dl
(7-17)
Creatinine 1.5 H mg/dL
(0.6-1.0)
Glucose 165 H mg/dl
(70-99)
Calcium 11.1 H mg/dl
(8.4-10.2)
Total Protein 5.3 L g/dl
(6.3-8.2)
Albumin 3.0 L g/dl
(3.5-5.0)
10/04/24 08:34
10/04/24 08:34
Vital Signs
Initial and Last Documented VS:
Initial Vital Signs
Temp Pulse Resp BP Pulse Ox
97.8 F 69 18 143/53 100
10/04/24 08:05 10/04/24 08:05 10/04/24 08:05 10/04/24 08:05 10/04/24 08:05
Last Documented Vital Signs
Temp Pulse Resp BP Pulse Ox
97.8 F 52 15 105/42 98
10/04/24 08:05 10/04/24 12:15 10/04/24 12:15 10/04/24 11:00 10/04/24 12:15
MDM/Problems Addressed
Differential Diagnosis Includes:
Patient with recurring falls. The care she is requiring at [facility] is getting too much for the family to take care of. Will consult physical therapy and case management for potential placement. No apparent injury from the falls. No
indication for any imaging but will check basic labs
*Critical Care Note
Total Time (30-74mins, 75-104mins- exclusive of procedures): Not Applicable
Update Note
Update Note:
Seen by PT and CM. CM requested hospitalist consultWho came and saw the patient but decided to admit the patient secondary to weakness multiple falls and persistent low maps. Fluid boluses ordered by the hospitalist.
ED Attending Note
-
Portions of this chart may have been created with voice recognition software.� Occasional wrong word or��sound alike� substitutions may have occurred due to the inherent limitations of voice recognition software.
Discharge Plan
Departure
Patient Disposition: Admit
Date of Disposition: 10/04/24
Time of Disposition: 12:39
Presentation/result/management discussed w/ accepting MD/DO: Hospitalist
Discharge Problem:
Falls
Prescriptions:
No Action
atorvastatin 40 mg Tablet
40 mg PO DAILY
carvedilol 25 mg Tablet
25 mg PO DAILY
Patient Comments:
07/04/24-patient only takes one a david even thought her prescription states bid
lisinopril 10 mg Tablet
10 mg PO DAILY
acetaminophen 325 mg Tablet
650 mg PO Q6HPRN PRN (Reason: MITCHELL, mild pain, or fever >101F) Qty: 0 0RF
furosemide 40 mg Tablet
40 mg PO DAILY Qty: 0 0RF
aspirin [Children's Aspirin] 81 mg Tablet,Chewable
81 mg PO DAILY Qty: 0 0RF
dapagliflozin propanediol 10 mg Tablet
10 mg PO DAILY Qty: 0 0RF
cholecalciferol (vitamin D3) [Vitamin D3] 50 mcg (2,000 unit) tablet
50 mcg PO DAILY 30 Days Qty: 30 0RF
docusate sodium [Colace] 100 mg Capsule
100 mg PO DAILYPRN PRN (Reason: constipation)
Referrals:
Adry Ahmadi MD [Family Provider] -
Interventions
Interventions:
*Risk Screen - Suicide Last Done: 10/04/24 08:05
*General Assessment Last Done: 10/04/24 08:05
*Neglect/Abuse Screening Last Done: 10/04/24 08:05
*ED- Fall Risk Assessment Last Done: 10/04/24 08:05
*ED COVID-19 Vaccine History Last Done: 10/04/24 08:13
ED-Musculoskeletal Assessment Last Done: 10/04/24 08:14
ED- Neurological Assessment Last Done: 10/04/24 08:05
ED-Skin Assessment Last Done: 10/04/24 08:05
Discharge Date and Time
Print Language: SLOVAK
[2024-10-04 09:03] LABS: ALT (SGPT) 15 U/L (0-35); AST (SGOT) 19 U/L (14-36); Alkaline Phosphatase 98 U/L (38-126); Blood Urea Nitrogen 22 mg/dl (7-17); Calcium 11.1 mg/dl (8.4-10.2); Carbon Dioxide 25 mmol/L (22-30); Chloride 106 mmol/L (98-107); Estimated Creatinine Clearance 25 ml/min; Glucose 165 mg/dl (70-99); Potassium 4.4 mmol/L (3.5-5.1); Sodium 136 mmol/L (135-145); Total Bilirubin 0.7 mg/dl (0.2-1.3); Total Protein 5.3 g/dl (6.3-8.2); eGFR 34.58
--- NOTE | 2024-10-04 12:22 | CM ---
Addendum entered by ANTWAN Lee 10/04/24 13:26:
Orders show now patient being admitted as inpatient. CM updated referrals to snfs no bed needed until weekend.
Original Note:
consult received for SNF placement. Patient came to ER after fall and was in ER 2 days ago after a fall. Candy, Niece spoken to by CM. Candy is trying to get [place] for in home services but cannot get the PCP to sign papers
for this.
Patient is eligible for the [facility] waiver program. Candy said patient home from [facility] last week and does not want return there. Family is requesting facilities close to [place]. [facility] All of them participate in [facility] program.
CM updated Emilie from [facility] . [facility] closed tomorrow.
CM asked ER physician to have hospitalist see patient and see if they recommend SNF. PT evaluated and recommends SNF.
CM to attempt to get bed and auth today for SNF.
[2024-10-04] MEDS: NSS 500 IV (12:36)
--- NOTE | 2024-10-04 12:41 | HPS.HSE ---
Family Physician
-
Family Physician: Adry Ahmadi
Chief Complaint
-
AMS
History of Present Illness
84 [facility] HFpEF hx TAVR GERD hypertension hyperlipidemia hry-fwbedss-wciyvalnv diabetes chronic hypercalcemia p/w altered mental status frequent falls found on the floor this
morning by Niece Candy, unknown downtime. Normally AOx3 at baseline per niece, though she notes patient has been having increasing memory issues. Noted poor appetite/oral intake for the past few weeks. ED eval notable for sinus bradycardia and
persistent MAP 50s to low 60s. Patient lethargic, difficult to arouse, unable to contribute any meaningful history. All of history from records and reports. Afebrile, stable respiratory status on room air. Labs also notable for mild CHANELLE on CKD3
and hypercalcemia though relatively baseline for her. Admitted for further management symptomatic hypotension suspect d/t poor oral intake/dehydration
Medical History
Past Medical History
Past Medical History: Reports Other (as above)
Past Surgical History: Reports Other (as above)
Social History
Unable to obtain full social history at this time due to: Patient Non-verbal
Family History
Family History: Not pertinent (reviewed)
Allergies / Home Medications
Allergies reflects when Allergies were last updated in [employer].
Home Medications with original date entered in [employer]
Allergy/Medication List:
Allergies
Allergy/AdvReac Type Severity Reaction Status Date / Time
NSAIDS (Non-Steroidal Allergy Unknown Verified 10/01/24 09:13
Anti-Inflamma
sulindac Allergy Unknown Verified 10/01/24 09:13
Home Medications
atorvastatin 40 mg tablet 40 mg PO DAILY High Cholesterol 10/23/23
carvedilol 25 mg tablet 25 mg PO DAILY Blood Pressure 10/23/23
lisinopril 10 mg tablet 10 mg PO DAILY Blood Pressure 10/23/23
acetaminophen 325 mg tablet 650 mg (2 x 325 mg) PO Q6HPRN PRN MITCHELL, mild pain, or fever >101F #0 tabs 03/09/24
aspirin 81 mg chewable tablet (Children's Aspirin) 81 mg PO DAILY Blood clot prevention/tx #0 tabs 03/09/24
furosemide 40 mg tablet 40 mg PO DAILY Fluid retention/Swelling #0 tabs 03/09/24
cholecalciferol (vitamin D3) 50 mcg (2,000 unit) tablet (Vitamin D3) 50 mcg PO DAILY 30 days #30 tabs 05/07/24
dapagliflozin propanediol 10 mg tablet 10 mg PO DAILY #0 tabs 05/07/24
docusate sodium 100 mg capsule (Colace) 100 mg PO DAILYPRN PRN constipation 07/04/24
Review of Systems
-
Unable to obtain full review of systems at this time due to: Patient Non-verbal
Physical Exam
Vital Signs
Vital Signs
Temp Pulse Resp BP Pulse Ox
97.8 F 52 15 105/42 98
10/04/24 08:05 10/04/24 12:15 10/04/24 12:15 10/04/24 11:00 10/04/24 12:15
Physical Exam
General: Other (as below)
Laboratory Results
-
10/04/24 08:34
10/04/24 08:34
Laboratory Results
Total Bilirubin 0.7 mg/dl (0.2-1.3) 10/04/24 08:34
AST 19 U/L (14-36) 10/04/24 08:34
ALT 15 U/L (0-35) 10/04/24 08:34
Alkaline Phosphatase 98 U/L (38-126) 10/04/24 08:34
Impression/Plan
-
Physical Exam
General: No pallor, cyanosis, or jaundice.
HEENT: Normocephalic atraumatic
NECK: Supple. No JVD Carotid Bruits
RESPIRATORY: Lungs clear to auscultation. No crackles wheezes stridor, stable respiratory status on room air
CVS: S1, S2 Sinus bradycardia
ABDOMEN: Soft, non-tender. No distension. BS+/normal.
EXTREMITIES: No peripheral cyanosis or edema.
AUTO RADIATOR SPECIALIST: Lethargic difficult to arouse
IMPRESSION:
84 female from alf [facility] history coronary artery disease HFpEF hx TAVR GERD hypertension hyperlipidemia omc-rgzhzde-mhrfmohot diabetes chronic hypercalcemia p/w altered mental status frequent falls found on the floor this
morning by Niece Candy, unknown downtime. Normally AOx3 at baseline per niece, though she notes patient has been having increasing memory issues. Noted poor appetite/oral intake for the past few weeks. Patient's family unable to take care. ED
eval notable for sinus bradycardia and persistent MAP 50s to low 60s. Patient lethargic, difficult to arouse, unable to contribute any meaningful history. All of history from records and reports. Afebrile, stable respiratory status on room air.
Labs also notable for mild CHANELLE on CKD3 and hypercalcemia though relatively baseline for her. Admitted for further management symptomatic hypotension suspect d/t poor oral intake/dehydration
PLAN:
#Fall/unknown downtime, poor historian AMS
#Metabolic Encephalopathy
#Symptomatic Hypotension w/ Hx Hypertension
#Hypotension likely d/t poor oral intake/dehydration
#Sinus Bradycardia
Tele admit
IVF bolus followed by IVF maintenance fluids- hold if patient develops increased oxygen requirement/sob
check CT head and CK
Fall/aspiration Precautions
PT eval appreciated SNF rehab
ST/OT/dietary evals requested
Pureed diet for now, ok to advance as tolerated
#Hx HFpEF
#TAVR
Holding Lasix Coreg Lisinopril d/t hypotension/bradycardia as above, will consider resuming as BP improves
daily weights I/O
#NIDDM
cont farxiga, hold if npo or not eating
sliding scale
Update A1c
#Hypercalcemia
#CHANELLE on CKD3
Cr 1.5 baseline 1.2
monitor
cont IVF as above
#HLD
cont statin
dvt ppx heparin
gi ppx protonix
Full Code by default (niece healthcare proxy Candy defers decision to patient. Patient AMS unable to make decisions for herself a at this time)
Discussed with patient's niece healthcare proxy Candy
I spent a total of 80 minutes with the patient or on the floor. More than 50% of this time involved counseling and coordination of care.
[2024-10-04] MEDS: NSS 1000 IV (13:39)
[2024-10-04 14:29] LABS: Creatine Phosphokinase 47 U/L (30-135)
[2024-10-04 16:51] LABS: Glucose - Point of Care 106 mg/dl (70-99)
[2024-10-04] MEDS: NOVOLOG FLEXPEN-LOW RESISTANCE SC (17:11)
[2024-10-04] MEDS: HEPARIN 5000 UNITS SC (17:13)
--- NOTE | 2024-10-04 17:53 | PTCARENOTE ---
Pt transferred from ED. Pt AAOX3, forgetful, bed alarm applied. Pt oriented to unit, call cotton within reach. Will continue with current plan.
[2024-10-04] MEDS: COREG 3.125 MG PO (19:30)
[2024-10-04 21:57] LABS: Glucose - Point of Care 171 mg/dl (70-99)
[2024-10-05] VITALS (9 sets, daily range): BP systolic 111–151; BP diastolic 43–58; PULSE 69–94; O2SAT 98; BMI 27.8
[2024-10-05] MEDS: HEPARIN 5000 UNITS SC ×4 (00:57→23:12)
[2024-10-05] MEDS: NSS 1000 IV (05:50)
--- NOTE | 2024-10-05 07:31 | W.PN.HOSP.TC ---
Today's Communication/Plan
-
gradual restart home antihypertensives w/ holding parameters
blood pressure control
glycemic control
maintain fall precautions
Monitor Kidney function, Ca levela
discharge planning SNF rehab
Assessment / Plan
Assessment / Plan
Physical Exam
General: No pallor, cyanosis, or jaundice.
HEENT: Normocephalic atraumatic
NECK: Supple. No JVD Carotid Bruits
RESPIRATORY: Lungs clear to auscultation. No crackles wheezes stridor, stable respiratory status on room air
CVS: S1, S2 NSR
ABDOMEN: Soft, non-tender. No distension. BS+/normal.
EXTREMITIES: No peripheral cyanosis or edema.
FRONT END APPLICATION DEVELOPER: AOX3 conversant coherent
IMPRESSION:
84 female from [facility] history coronary artery disease HFpEF hx TAVR GERD hypertension hyperlipidemia sih-ypyqxhu-zzadknboq diabetes chronic hypercalcemia p/w altered mental status frequent falls found on the floor this
morning by Niece Candy, unknown downtime. Normally AOx3 at baseline per niece, though she notes patient has been having increasing memory issues. Noted poor appetite/oral intake for the past few weeks. Patient's family unable to take care. ED
eval notable for sinus bradycardia and persistent MAP 50s to low 60s. Patient lethargic, difficult to arouse, unable to contribute any meaningful history. All of history from records and reports. Afebrile, stable respiratory status on room air.
Labs also notable for CHANELLE on CKD3 and hypercalcemia- though hypercalcemia was relatively baseline for her. Admitted for further management symptomatic hypotension suspect d/t poor oral intake/dehydration
PLAN:
#Fall/unknown downtime, poor historian AMS
#Metabolic Encephalopathy
#Symptomatic Hypotension w/ Hx Hypertension
#Hypotension likely d/t poor oral intake/dehydration
#Sinus Bradycardia
Tele admit
Hypotension resolved with IVF bolus
AMS since resolved, tolerating diet, IVF completed
CT head appreciated no acute abn's
CK unremarkable
Fall/aspiration Precautions
PT/OT eval appreciated SNF rehab
ST eval appreciated appropriate for regular diet thin liquids
#Hx HFpEF
#TAVR
daily weights I/O
Initially Held Lasix Coreg Lisinopril d/t hypotension/bradycardia as above, gradually restarting with improvement in bp and hr noted
Coreg resumed reduced dose 3.125 mg BID
Lisinopril resumed at reduced dose 5 mg daily
Lasix resumed at 40 mg daily
All antihypertensives resumed with holding parameters
#NIDDM
cont farxiga, hold if npo or not eating
sliding scale
Update A1c
#Chronic Hypercalcemia
#CHANELLE on CKD3 resolved
Cr 1.5 on admission since improved to 1.0
Hypercalcemia notably improved but not resolved
Vit D wnl, Vit D supplementation stopped especially in lieu of Calcium levels
PTH pending
#HLD
cont statin
dvt ppx heparin
gi ppx protonix
Full Code
Discussed with patient and patient's niece healthcare proxy Candy
I spent a total of 50 minutes with the patient or on the floor. More than 50% of this time involved counseling and coordination of care.
Anticipated Discharge: 24 - 48 hours
Subjective/Interval History
-
Date of Service: October 05, 2024
Symptomatically improved. AOx3 conversant coherent. Overall reports feeling well.
Objective Data
-
Labs:
Laboratory Results
10/05/24
06:00
WBC Pending
Hgb Pending
Hct Pending
Plt Count Pending
Sodium Pending
Potassium Pending
Chloride Pending
Carbon Dioxide Pending
BUN Pending
Creatinine Pending
Glucose Pending
Calcium Pending
Vital Signs:
Vital Signs
Temp Pulse Resp BP Pulse Ox
98.0 F 72 20 139/45 98
10/05/24 03:29 10/05/24 03:29 10/05/24 03:29 10/05/24 03:29 10/05/24 03:29
I&O
10/04/24 10/05/24 10/06/24
06:59 06:59 06:59
Intake Total 960 / 960
Balance 960 / 960
[2024-10-05 08:06] LABS: Glucose - Point of Care 132 mg/dl (70-99)
[2024-10-05 08:06] LABS: Hematocrit 32.3 % (37.0-47.0); Hemoglobin 10.8 g/dL (12.0-16.0); Mean Corp Hgb Conc. 33.4 g/dL (33.0-37.0); Mean Corpuscular Hgb 31.5 pg (27.0-31.0); Mean Corpuscular Volume 94.2 fL (81.0-99.0); Mean Platelet Volume 11.3 fL (7.4-10.4); Platelet Count 218 10^3/uL (130-400); Red Blood Cell Count 3.43 10^6/uL (4.20-5.40); Red Cell Dist. Width 13.4 % (11.5-14.5); White Blood Cell Count 5.5 10^3/uL (4.8-10.8)
[2024-10-05 08:35] LABS: Blood Urea Nitrogen 17 mg/dl (7-17); Calcium 10.6 mg/dl (8.4-10.2); Carbon Dioxide 18 mmol/L (22-30); Chloride 112 mmol/L (98-107); Estimated Creatinine Clearance 36 ml/min; Glucose 111 mg/dl (70-99); Magnesium 1.7 mg/dl (1.6-2.3); Potassium 4.4 mmol/L (3.5-5.1); Sodium 139 mmol/L (135-145); eGFR 56.25
--- NOTE | 2024-10-05 08:48 | PTOTSP ---
Dysphagia Eval
Mild oral stage changes related to missing dentition. No overt s/s of aspiration observed.
Recommend:
1. Regular, Thin Liquids
2. Pick soft foods
3. Medications as best tolerated
4. General aspiration/reflux precautions
5. RD consult
Dysphagia follow up not warranted. If concerned for PNA and silent aspiration please order video swallow. Low suspicion at this time.
Cognitive eval is not appropriate given etiology of metabolic encephalopathy. If this resolves and cognitive deficits persist please reconsult.
[2024-10-05] MEDS: NOVOLOG FLEXPEN-LOW RESISTANCE SC (08:50)
[2024-10-05] MEDS: LIPITOR 40 MG PO (10:09)
[2024-10-05] MEDS: FARXIGA 10 MG PO (10:09)
[2024-10-05] MEDS: LOW STRENGTH ASPIRIN 81 MG PO (10:09)
[2024-10-05] MEDS: COREG 3.125 MG PO ×2 (10:09→20:15)
[2024-10-05] MEDS: VITAMIN D3 (cholecalciferol) 50 MCG PO (10:09)
--- NOTE | 2024-10-05 11:19 | PN.CDI ---
CDI
- -
CDI:
Physician Documentation Request
Admit Date: 10/04/24 13:21
Dear Doctor Jamie,
Please review the following and provide your response in the progress notes.
Clinical Indicators:
- RN skin assessment indicates Stage 2 sacrum pressure injury, POA
Physician documentation of the type and location of wounds is required for compliant documentation. Based on the above clinical findings and your assessment, please provide the following in your progress note:
1. Location of the ulcer/wound, including laterality.
2. Type (etiology) of ulcer/wound:
- Diabetic ulcer
- Arterial (ischemic) ulcer
- Pressure (decubitus) ulcer
- Other
Use of terms such as suspected, likely, concern for, or probable (associated with a specific diagnosis that is being evaluated, monitored, or treated as if it exists) are acceptable and can be coded in the inpatient setting, when documented at the
time of discharge.
Thank you,
Tim Bah RN
CDI Specialist
Please use your independent medical judgment in providing your response.
*Source: National Pressure Ulcer Advisory Panel (NPUAP)
[2024-10-05 11:50] LABS: Vitamin D, 25-OH*** 38.1 ng/mL (30-80)
[2024-10-05 12:14] LABS: Glucose - Point of Care 186 mg/dl (70-99)
[2024-10-05] MEDS: ZESTRIL 5 MG PO (13:10)
[2024-10-05] MEDS: NOVOLOG FLEXPEN-LOW RESISTANCE 1 UNITS SC (13:11)
--- NOTE | 2024-10-05 13:45 | CM ---
Chart reviewed and physical therapy are recommending skilled placement. Referrals sent to [facility], [facility], [facility] [place] and all of these facilities have no beds, referral sent to [facility], and [facility] and waiting
on a determination, patient refuses skilled placement at [facility]. [facility] who have accepted patient is too far away per patient.
Plan; Skilled placement.
[2024-10-05 16:44] LABS: Glucose - Point of Care 202 mg/dl (70-99)
[2024-10-05] MEDS: NOVOLOG FLEXPEN-LOW RESISTANCE 2 UNITS SC (17:46)
[2024-10-06 03:05] VITALS: BP 139/60
[2024-10-06 05:26] VITALS: BMI 28.4
--- NOTE | 2024-10-06 06:31 | W.PN.HOSP.TC ---
Today's Communication/Plan
-
Discharge Planning SNF rehab
see a/p
Assessment / Plan
Assessment / Plan
Physical Exam
General: No pallor, cyanosis, or jaundice.
HEENT: Normocephalic atraumatic
NECK: Supple. No JVD Carotid Bruits
RESPIRATORY: Lungs clear to auscultation. No crackles wheezes stridor, stable respiratory status on room air
CVS: S1, S2 NSR
ABDOMEN: Soft, non-tender. No distension. BS+/normal.
EXTREMITIES: No peripheral cyanosis or edema.
HAND POLISHER: AOX3 conversant coherent
IMPRESSION:
84 [facility] HFpEF hx TAVR GERD hypertension hyperlipidemia bfq-gpvoeqn-whjxwviyn diabetes chronic hypercalcemia p/w altered mental status frequent falls found on the floor this
morning by Niece Candy, unknown downtime. Normally AOx3 at baseline per niece, though she notes patient has been having increasing memory issues. Noted poor appetite/oral intake for the past few weeks. Patient's family unable to take care. ED
eval notable for sinus bradycardia and persistent MAP 50s to low 60s. Patient lethargic, difficult to arouse, unable to contribute any meaningful history. All of history from records and reports. Afebrile, stable respiratory status on room air.
Labs also notable for CHANELLE on CKD3 and hypercalcemia- though hypercalcemia was relatively baseline for her. Admitted for further management symptomatic hypotension suspect d/t poor oral intake/dehydration
PLAN:
#Fall/unknown downtime, poor historian AMS
#Metabolic Encephalopathy
#Symptomatic Hypotension w/ Hx Hypertension
#Hypotension likely d/t poor oral intake/dehydration
#Sinus Bradycardia
Tele admit
Hypotension resolved with IVF bolus
AMS since resolved, tolerating diet, IVF completed
CT head appreciated no acute abn's
CK unremarkable
Fall/aspiration Precautions
PT/OT eval appreciated SNF rehab
ST eval appreciated appropriate for regular diet thin liquids
#Hx HFpEF
#TAVR
daily weights I/O
Initially Held Lasix Coreg Lisinopril d/t hypotension/bradycardia as above, gradually restarting with improvement in bp and hr noted
Coreg resumed reduced dose 3.125 mg BID titrated up to 6.25 mg BID
Lisinopril resumed at reduced dose 5 mg daily
Lasix resumed at 40 mg daily
All antihypertensives resumed with holding parameters
#NIDDM
cont farxiga, hold if npo or not eating
sliding scale
Updated A1c 7.2
#Chronic Hypercalcemia, Hyperparathyroidism
#CHANELLE on CKD3 resolved
Cr 1.5 on admission since improved to 1.0
Hypercalcemia notably improved but not resolved
Vit D wnl, Vit D supplementation stopped especially in lieu of Calcium levels
PTH elevated 303.5
#HLD
cont statin
dvt ppx heparin
gi ppx protonix
Full Code
Discussed with patient and patient's niece healthcare proxy Candy
I spent a total of 45 minutes with the patient or on the floor. More than 50% of this time involved counseling and coordination of care.
Anticipated Discharge: 24 - 48 hours
Subjective/Interval History
-
Date of Service: October 06, 2024
No acute distress resting comfortably in bed. Overall reports feeling well. Denies new acute issues at this time.
Objective Data
-
Labs:
Laboratory Results
10/06/24
06:00
WBC Pending
Hgb Pending
Hct Pending
Plt Count Pending
Sodium Pending
Potassium Pending
Chloride Pending
Carbon Dioxide Pending
BUN Pending
Creatinine Pending
Glucose Pending
Calcium Pending
Vital Signs:
Vital Signs
Temp Pulse Resp BP Pulse Ox
98.1 F 81 20 139/60 97
10/06/24 03:05 10/06/24 03:05 10/06/24 03:05 10/06/24 03:05 10/06/24 03:05
I&O
10/04/24 10/05/24 10/06/24
06:59 06:59 06:59
Intake Total 960 / 960
Balance 960 / 960
[2024-10-06 07:01] VITALS: BP 133/58
[2024-10-06 07:16] LABS: Hematocrit 30.6 % (37.0-47.0); Hemoglobin 10.4 g/dL (12.0-16.0); Mean Corpuscular Volume 94.2 fL (81.0-99.0); Mean Platelet Volume 11.3 fL (7.4-10.4); Platelet Count 215 10^3/uL (130-400); Red Blood Cell Count 3.25 10^6/uL (4.20-5.40); Red Cell Dist. Width 13.3 % (11.5-14.5); White Blood Cell Count 4.9 10^3/uL (4.8-10.8)
[2024-10-06 07:39] LABS: Blood Urea Nitrogen 13 mg/dl (7-17); Calcium 10.4 mg/dl (8.4-10.2); Carbon Dioxide 22 mmol/L (22-30); Chloride 113 mmol/L (98-107); Estimated Creatinine Clearance 37 ml/min; Glucose 107 mg/dl (70-99); Magnesium 1.5 mg/dl (1.6-2.3); Potassium 4.2 mmol/L (3.5-5.1); Sodium 137 mmol/L (135-145); eGFR 56.25
[2024-10-06 08:27] LABS: Glucose - Point of Care 99 mg/dl (70-99)
[2024-10-06] MEDS: NOVOLOG FLEXPEN-LOW RESISTANCE SC ×2 (08:37→17:17)
[2024-10-06] MEDS: HEPARIN 5000 UNITS SC ×2 (08:37→16:29)
[2024-10-06] MEDS: LOW STRENGTH ASPIRIN 81 MG PO (08:38)
[2024-10-06] MEDS: COREG 3.125 MG PO ×2 (08:38→19:24)
[2024-10-06] MEDS: LIPITOR 40 MG PO (08:38)
[2024-10-06] MEDS: ZESTRIL 5 MG PO (08:38)
[2024-10-06] MEDS: FARXIGA 10 MG PO (08:38)
[2024-10-06] MEDS: LASIX 40 MG PO (08:39)
[2024-10-06 09:58] LABS: Glycohemoglobin (HgbA1c) 7.2 % (4.0-5.6)
[2024-10-06 10:14] LABS: Intact PTH 303.5 pg/ml (13.6-85.8)
[2024-10-06] MEDS: MAGNESIUM SULFATE 100 IV (11:19)
[2024-10-06 11:41] VITALS: BP 121/40
[2024-10-06 12:15] LABS: Glucose - Point of Care 173 mg/dl (70-99)
[2024-10-06] MEDS: NOVOLOG FLEXPEN-LOW RESISTANCE 1 UNITS SC (13:59)
[2024-10-06 15:51] VITALS: BP 129/56
[2024-10-06 17:14] LABS: Glucose - Point of Care 126 mg/dl (70-99)
[2024-10-06 19:30] VITALS: BP 160/49
[2024-10-06 22:19] LABS: Glucose - Point of Care 110 mg/dl (70-99)
[2024-10-06 22:48] VITALS: BP 155/53
[2024-10-07] MEDS: HEPARIN 5000 UNITS SC ×4 (00:12→23:38)
[2024-10-07 03:21] VITALS: BP 128/47
[2024-10-07 05:18] LABS: Hematocrit 32.5 % (37.0-47.0); Mean Corp Hgb Conc. 33.8 g/dL (33.0-37.0); Mean Corpuscular Hgb 31.7 pg (27.0-31.0); Mean Corpuscular Volume 93.7 fL (81.0-99.0); Mean Platelet Volume 11.3 fL (7.4-10.4); Platelet Count 231 10^3/uL (130-400); Red Blood Cell Count 3.47 10^6/uL (4.20-5.40); Red Cell Dist. Width 13.2 % (11.5-14.5); White Blood Cell Count 5.7 10^3/uL (4.8-10.8)
[2024-10-07 05:49] LABS: Blood Urea Nitrogen 10 mg/dl (7-17); Calcium 10.5 mg/dl (8.4-10.2); Carbon Dioxide 21 mmol/L (22-30); Chloride 109 mmol/L (98-107); Estimated Creatinine Clearance 41 ml/min; Glucose 99 mg/dl (70-99); Magnesium 2.4 mg/dl (1.6-2.3); Phosphorus 2.3 mg/dl (2.5-4.5); Potassium 4.3 mmol/L (3.5-5.1); Sodium 135 mmol/L (135-145); eGFR > 60.00
[2024-10-07 05:54] VITALS: BMI 27.2
[2024-10-07 07:24] VITALS: BP 108/77
--- NOTE | 2024-10-07 07:53 | W.PN.HOSP.TC ---
Today's Communication/Plan
-
Discharge Planning SNF rehab
see a/p
Assessment / Plan
Assessment / Plan
Physical Exam
General: No pallor, cyanosis, or jaundice.
HEENT: Normocephalic atraumatic
NECK: Supple. No JVD Carotid Bruits
RESPIRATORY: Lungs clear to auscultation. No crackles wheezes stridor, stable respiratory status on room air
CVS: S1, S2 NSR
ABDOMEN: Soft, non-tender. No distension. BS+/normal.
EXTREMITIES: No peripheral cyanosis or edema.
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
IM[facility]ION:
84 [facility] HF[facility]EF hx TAVR GERD hypertension hyperlipidemia ykf-enxgviz-ajvybbzec diabetes chronic hypercalcemia p/w altered mental status frequent falls found on the floor this
morning by Niece Candy, unknown downtime. Normally AOx3 at baseline per niece, though she notes patient has been having increasing memory issues. Noted poor appetite/oral intake for the past few weeks. Patient's family unable to take care. ED
eval notable for sinus bradycardia and persistent MAP 50s to low 60s. Patient lethargic, difficult to arouse, unable to contribute any meaningful history. All of history from records and reports. Afebrile, stable respiratory status on room air.
Labs also notable for CHANELLE on CKD3 and hypercalcemia- though hypercalcemia was relatively baseline for her. Admitted for further management symptomatic hypotension suspect d/t poor oral intake/dehydration
PLAN:
#Fall/unknown downtime, poor historian AMS
#Metabolic Encephalopathy
#Symptomatic Hypotension w/ Hx Hypertension
#Hypotension likely d/t poor oral intake/dehydration
#Sinus Bradycardia
Tele admit
Hypotension resolved with IVF bolus
AMS since resolved, tolerating diet, IVF completed
CT head appreciated no acute abn's
CK unremarkable
Fall/aspiration Precautions
PT/OT eval appreciated SNF rehab
ST eval appreciated appropriate for regular diet thin liquids
#Hx HFpEF
#TAVR
daily weights I/O
Initially Held Lasix Coreg Lisinopril d/t hypotension/bradycardia as above, gradually restarting with improvement in bp and hr noted
Coreg resumed reduced dose 3.125 mg BID titrated up to 6.25 mg BID
Lisinopril resumed at reduced dose 5 mg daily
Lasix resumed at 40 mg daily
All antihypertensives resumed with holding parameters
#NIDDM
cont farxiga, hold if npo or not eating
sliding scale
Updated A1c 7.2
#Chronic Hypercalcemia, Hyperparathyroidism
#CHANELLE on CKD3 resolved
Cr 1.5 on admission since improved to 1.0
Hypercalcemia notably improved but not resolved
Vit D wnl, Vit D supplementation stopped especially in lieu of Calcium levels
PTH elevated 303.5
Home Lasix resumed as above
#Hypomagnesemia
#Hypophosphatemia
monitor and replete as necessary
scheduled neutrophos ordered for 1 day
#HLD
cont statin
#Stage 2 sacrum pressure injury, POA
cont local wound care
dvt ppx heparin
gi ppx protonix
Full Code
Discussed with patient and patient's niece healthcare proxy Candy
I spent a total of 45 minutes with the patient or on the floor. More than 50% of this time involved counseling and coordination of care.
Anticipated Discharge: 24 - 48 hours
Subjective/Interval History
-
Date of Service: October 07, 2024
No acute distress. Comfortable. Reports feeling well. Denies new acute issues at this time.
Objective Data
-
Labs:
Laboratory Results
10/07/24
04:34
WBC 5.7
Hgb 11.0 L
Hct 32.5 L
Plt Count 231
Sodium 135
Potassium 4.3
Chloride 109 H
Carbon Dioxide 21 L
BUN 10
Creatinine 0.9
Glucose 99
Calcium 10.5 H
Vital Signs:
Vital Signs
Temp Pulse Resp BP Pulse Ox
98.0 F 73 20 108/77 96
10/07/24 07:24 10/07/24 07:24 10/07/24 07:24 10/07/24 07:24 10/07/24 07:24
I&O
10/06/24 10/07/24 10/08/24
06:59 06:59 06:59
Intake Total 480 / 480
Balance 480 / 480
[2024-10-07 08:49] LABS: Glucose - Point of Care 128 mg/dl (70-99)
[2024-10-07] MEDS: NOVOLOG FLEXPEN-LOW RESISTANCE SC ×2 (08:52→17:23)
[2024-10-07] MEDS: LIPITOR 40 MG PO (08:53)
[2024-10-07] MEDS: FARXIGA 10 MG PO (08:53)
[2024-10-07] MEDS: LASIX 40 MG PO (08:54)
[2024-10-07] MEDS: LOW STRENGTH ASPIRIN 81 MG PO (08:54)
[2024-10-07] MEDS: ZESTRIL PO (08:55)
[2024-10-07] MEDS: COREG PO (09:03)
[2024-10-07 12:02] VITALS: BP 164/65
[2024-10-07 12:26] LABS: Glucose - Point of Care 166 mg/dl (70-99)
[2024-10-07] MEDS: NEUTRA-PHOS POWDER PACKET 250 MG PO ×3 (12:33→22:27)
[2024-10-07] MEDS: NOVOLOG FLEXPEN-LOW RESISTANCE 1 UNITS SC (12:34)
[2024-10-07 15:48] VITALS: BP 151/60
[2024-10-07 16:33] LABS: Glucose - Point of Care 117 mg/dl (70-99)
[2024-10-07 19:06] VITALS: BP 167/73
[2024-10-07] MEDS: COREG 6.25 MG PO (20:24)
[2024-10-07 22:05] LABS: Glucose - Point of Care 127 mg/dl (70-99)
[2024-10-07 23:09] VITALS: BP 133/56
[2024-10-08 03:00] VITALS: BP 141/64
[2024-10-08 06:00] VITALS: BMI 26.8
[2024-10-08 07:26] VITALS: BP 123/61
[2024-10-08 07:56] LABS: Glucose - Point of Care 109 mg/dl (70-99)
[2024-10-08 08:01] LABS: Hematocrit 33.8 % (37.0-47.0); Hemoglobin 11.7 g/dL (12.0-16.0); Mean Corp Hgb Conc. 34.6 g/dL (33.0-37.0); Mean Corpuscular Hgb 31.8 pg (27.0-31.0); Mean Corpuscular Volume 91.8 fL (81.0-99.0); Mean Platelet Volume 11.4 fL (7.4-10.4); Platelet Count 251 10^3/uL (130-400); Red Blood Cell Count 3.68 10^6/uL (4.20-5.40); Red Cell Dist. Width 13.2 % (11.5-14.5); White Blood Cell Count 5.4 10^3/uL (4.8-10.8)
[2024-10-08] MEDS: NOVOLOG FLEXPEN-LOW RESISTANCE SC (08:14)
[2024-10-08 09:08] LABS: Blood Urea Nitrogen 11 mg/dl (7-17); Carbon Dioxide 22 mmol/L (22-30); Chloride 106 mmol/L (98-107); Estimated Creatinine Clearance 36 ml/min; Glucose 114 mg/dl (70-99); Phosphorus 3.1 mg/dl (2.5-4.5); Potassium 4.6 mmol/L (3.5-5.1); Sodium 135 mmol/L (135-145); eGFR 56.25
[2024-10-08] MEDS: NEUTRA-PHOS POWDER PACKET 250 MG PO (09:09)
[2024-10-08] MEDS: COREG 6.25 MG PO (09:10)
[2024-10-08] MEDS: LASIX 40 MG PO (09:10)
[2024-10-08] MEDS: FARXIGA 10 MG PO (09:10)
[2024-10-08] MEDS: ZESTRIL 5 MG PO (09:11)
[2024-10-08] MEDS: LIPITOR 40 MG PO (09:11)
[2024-10-08] MEDS: HEPARIN 5000 UNITS SC (09:12)
[2024-10-08] MEDS: LOW STRENGTH ASPIRIN 81 MG PO (09:12)
--- NOTE | 2024-10-08 09:36 | W.PN.HOSP.TC ---
Addendum entered and electronically signed by Renate Cronin MD 10/08/24 15:12:
total DC time 40 min
Original Note:
Today's Communication/Plan
-
dispo planning to SNF when able
Assessment / Plan
Assessment / Plan
Physical Exam
General: No pallor, cyanosis, or jaundice.
HEENT: Normocephalic atraumatic
NECK: Supple. No JVD Carotid Bruits
RESPIRATORY: Lungs clear to auscultation. No crackles wheezes stridor, stable respiratory status on room air
CVS: S1, S2 NSR
ABDOMEN: Soft, non-tender. No distension. BS+/normal.
EXTREMITIES: No peripheral cyanosis or edema.
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
IMPRESSION:
84 female from [facility] history of coronary artery disease, HFpEF, hx TAVR, GERD, hypertension, hyperlipidemia, niu-oalouzr-jhypllvzw diabetes, chronic hypercalcemia; p/w altered mental status, frequent falls, and was
found on the floor (unknown downtime) by niece Candy. Normally AOx3 at baseline per niece, though she notes patient has been having increasing memory issues. Noted poor appetite/oral intake for the past few weeks. Patient's family unable to take
care.
ED eval notable for sinus bradycardia and persistent MAP 50s to low 60s. Patient was lethargic, difficult to arouse, unable to contribute any meaningful history.
Labs also notable for CHANELLE on CKD3 and hypercalcemia- though hypercalcemia was relatively baseline for her. Admitted for further management symptomatic hypotension suspect d/t poor oral intake/dehydration
A/P:
# Fall/unknown downtime, poor historian, AMS
# Metabolic Encephalopathy
# Symptomatic Hypotension w/ Hx Hypertension
# Hypotension likely d/t poor oral intake/dehydration
# Sinus Bradycardia
Hypotension resolved with IVF bolus
AMS since resolved, tolerating diet
CT head no acute abn's
CK unremarkable
Fall/aspiration Precautions
PT/OT eval recc SNF rehab
ST eval cleared for regular diet thin liquids
# Hx HFpEF
# TAVR
daily weights I/O
Initially Held Lasix/Coreg/Lisinopril d/t hypotension/bradycardia as above, gradually restarted med with improvement in bp and hr noted
Cont lower dose Coreg 6.25 mg BID
Lisinopril resumed at reduced dose 5 mg daily
Lasix resumed at 40 mg daily
All antihypertensives resumed with holding parameters
# NIDDM
cont farxiga, hold if npo or not eating
sliding scale
Updated A1c 7.2
# Chronic Hypercalcemia, Hyperparathyroidism
# CHANELLE on CKD3, resolved
Cr 1.5 on admission -> improved to 1.0
Hypercalcemia notably improved but not resolved
Vit D wnl, Vit D supplementation stopped especially in lieu of Calcium levels
PTH elevated 303.5
Home Lasix resumed as above
Start Sensipar 30 mg BID
# Hypomagnesemia
# Hypophosphatemia
monitor and replete as necessary
scheduled neutrophos ordered for 1 day
# HLD
cont statin
# Stage 2 sacrum pressure injury, POA
cont local wound care
dvt ppx heparin
gi ppx protonix
Full Code
DW CM
Called prosper Gupta to update, call not answered
total time 51 min
Anticipated Discharge: Within 24 hours
Subjective/Interval History
-
Date of Service: October 08, 2024
Objective Data
-
Labs:
Laboratory Results
10/08/24
07:33
WBC 5.4
Hgb 11.7 L
Hct 33.8 L
Plt Count 251
Sodium 135
Potassium 4.6
Chloride 106
Carbon Dioxide 22
BUN 11
Creatinine 1.0
Glucose 114 H
Calcium 11.0 H
Vital Signs:
Vital Signs
Temp Pulse Resp BP Pulse Ox
36.6 C 76 16 123/61 96
10/08/24 07:26 10/08/24 07:26 10/08/24 07:26 10/08/24 07:26 10/08/24 07:26
I&O
10/07/24 10/08/24 10/09/24
06:59 06:59 06:59
Intake Total 480 / 480 420 / 420
Balance 480 / 480 420 / 420
Review of Systems
-
Unable to obtain full review of systems at this time due to: Dementia
History Source: Patient
All other systems: Reviewed and negative
Data Reviewed
-
Labs: Labs Reviewed by me
[2024-10-08 11:30] VITALS: BP 115/51
--- NOTE | 2024-10-08 11:39 | CM ---
Chart reviewed. Patient needing SNF at d/c, multiple referrals sent w/ no bed availability. Patient now has 3 night inpatient Medicare stay.
CM spoke w/ patient's niece, Candy, to review and discuss other facilities now that patient has 3 night stay and doesn't necessarily need [facility] waiver facilities. Candy shared she prefers [facility] as her mother is there and patient enjoyed stay her
last admission.
Referral sent to [facility] accepted and can offer bed today after 3 pm. Updated Candy, discussed transport, agreeable to [facility] and $90 cost.
Updated hospitalist, agreeable to d/c today
IMM verbally reviewed, patient given copy, copy on chart
[facility]
Report: [phone]

Plan: D/c to [facility] today
[2024-10-08 11:45] LABS: Glucose - Point of Care 210 mg/dl (70-99)
[2024-10-08] MEDS: NOVOLOG FLEXPEN-LOW RESISTANCE 2 UNITS SC (12:27)
[2024-10-08] MEDS: SENSIPAR 30 MG PO (12:27)
--- NOTE | 2024-10-08 12:30 | WOUNDNOTE ---
WO RN note: Patient admitted with HOTN. Plan is [facility] SNF/rehab today.
See H&P for complete history.
PMH: HF, TAVR, HTN, NIDDM, chronic hypercalcemia.
Wound Location and type/assessment: Patient admitted with: stage 2 sacral/coccyx pressure injury. MASD lower abdominal fold. She has a couple linear red abrasions from bs commode.
Appetite: good.
Pressure redistribution devices in place: [employer] air bed. Patient assists with turning. She uses the bs commode with 1 assist.
Plan: Silicone border foam changed on sacrum. Protective silicone border foam applied to posterior thigh dry pink abrasions. Patient turned to L semi side lying position with help from OLGA Dorsey. Heels off bed with air chair cushion.
Confirmed orders with Dr. Cronin and update RN Walker.
Updated care plan and discharge instructions. Will sign off.
Note to case management of equipment requested for discharge: Air mattress at SNF. Discussed with ADRYAN Bryant.
Recommend follow up at wound care center upon discharge.
--- NOTE | 2024-10-08 12:30 | WOUNDNOTE ---
THIGHS (POSTERIOR)(KNEES TOWARD TOP OF PHOTO)
--- NOTE | 2024-10-08 12:40 | WOUNDNOTE ---
WO RN note: Patient admitted with HOTN. Plan is [facility] SNF/rehab today.
See H&P for complete history.
PMH: HF, TAVR, HTN, NIDDM, chronic hypercalcemia.
Wound Location and type/assessment: Patient admitted with: stage 2 sacral/coccyx pressure injury. MASD lower abdominal fold. She has a couple linear red abrasions from bs commode.
Appetite: good.
Pressure redistribution devices in place: [employer] air bed. Patient assists with turning. She uses the bs commode with 1 assist.
Plan: Silicone border foam changed on sacrum. Protective silicone border foam applied to posterior thigh dry pink abrasions. Patient turned to L semi side lying position with help from OLGA Dorsey. Heels off bed with air chair cushion.
Confirmed orders with Dr. Cronin and update RN Walker.
Updated care plan and discharge instructions. Will sign off.
Note to case management of equipment requested for discharge: Air mattress at SNF. Discussed with ADRYAN Montez.
Recommend follow up at wound care center upon discharge.
--- NOTE | 2024-10-08 14:08 | W.DCSUMMARY ---
Discharge Summary
Discharge Data
Date of Admission: 10/04/24
Date of Discharge: 10/08/24
-
Pending Results: No
Hospital Course
Principal Diagnosis:
Fall/unknown downtime, with confusion (Metabolic Encephalopathy) due to poor oral intake/dehydration
CHANELLE (resolved) on CKD3
Chronic Diagnoses:�
Coronary artery disease
HFpEF
TAVR
Qpi-xagqvom-oiihwavfn diabetes. Updated A1c 7.2
Chronic Hypercalcemia, Hyperparathyroidism (PTH elevated at 303.5)
HLD
Stage 2 sacrum pressure injury, POA
Consultations:�
None
Procedures:�
None
Clinical course:�
This is a 84 female from [facility] with past medical history as stated above, who presented with altered mental status and was found on the floor (unknown downtime) by prosper Gupta.
She has been noted to have increasing memory issues lately.
Problem 1:
Fall/unknown downtime, with confusion (Metabolic Encephalopathy) due to poor oral intake/dehydration.
CHANELLE (resolved) on CKD3.
Her hypertension and dehydration/CHANELLE resolved following IV fluid.
Her mental status also improved and she tolerated diet well prior to discharge.
Her CT head showed no acute abnormality. CPK also unrevealing.
She was seen by PT OT and was discharged to SNF per their recommendation.
She was cleared to continue regular diet and liquid per speech eval.
Problem 2:
Hypotension (resolved).
She can continue lowered dose Coreg at 6.25 mg twice daily (previously 25 mg twice daily), and lowered dose lisinopril at 5 mg daily (previously 10 mg daily).
Her blood pressure has been stable on that regimen.
Problem 3:
Suspect Primary hyperparathyroidism with hypercalcemia.
PTH elevated at 303.5.
She can stop taking vitamin D supplement going forward.
She was started with Sensipar 30 mg twice daily which she can continue going forward.
As for the rest of her medical problems, they were stable during her hospital stay.
Discharge Plan
-
Patient Disposition: Long Term/SNF
Discharge Diagnosis/Procedures: Fall/unknown downtime, poor historian, confusion- resolved;
Hypotension likely d/t poor oral intake/dehydration- resolved;
acute kidney injury (resolved) on chronic kidney disease;
Hypercalcemia due to primary parathyroidism
Condition: Fair
Diet: Diabetic, Carb Controlled
Activity: As tolerated
Driving Restrictions: As prior to admission
Blood Work: BMP in 1 week with your PCP
Wound Care: Wound Care Instructions
Sacral ulcer-clean with saline, miconazole powder to red skin around ulcer followed by no sting barrier wipe, silicone border foam, change q 3 days and prn loosened dressing.
Miconazole powder to abdominal fold bid.
Air mattress
Elevate heels off bed with pillow/s.
Pressure redistributing chair cushion (i.e. Air chair cushion).
Follow up at wound care center call for an appointment.
Referrals:
Adry Ahmadi MD [Family Provider] - in less than 1 week
Additional Discharge Medication Instructions: Your Coreg dose was decreased from 25 mg twice daily to 6.25 mg twice daily.
Your Lisinopril dose was decreased from 10 mg daily to 5 mg daily.
You were started with Cinacalcet for hypercalcemia in setting of primary hyperparathyrodism
Stop vitamin D supplement
Prescriptions:
New
carvedilol 6.25 mg Tablet
6.25 mg PO BID Qty: 60 0RF
cinacalcet 30 mg Tablet
30 mg PO BID Qty: 60 0RF
lisinopril 5 mg Tablet
5 mg PO DAILY Qty: 30 0RF
Continued
atorvastatin 40 mg Tablet
40 mg PO DAILY
acetaminophen 325 mg Tablet
650 mg PO Q6HPRN PRN (Reason: MITCHELL, mild pain, or fever >101F) Qty: 0 0RF
furosemide 40 mg Tablet
40 mg PO DAILY Qty: 0 0RF
aspirin [Children's Aspirin] 81 mg Tablet,Chewable
81 mg PO DAILY Qty: 0 0RF
dapagliflozin propanediol 10 mg Tablet
10 mg PO DAILY Qty: 0 0RF
docusate sodium [Colace] 100 mg Capsule
100 mg PO DAILYPRN PRN (Reason: constipation)
Discontinued
carvedilol 25 mg Tablet
25 mg PO DAILY
Patient Comments:
07/04/24-patient only takes one a david even thought her prescription states bid
lisinopril 10 mg Tablet
10 mg PO DAILY
cholecalciferol (vitamin D3) [Vitamin D3] 50 mcg (2,000 unit) tablet
50 mcg PO DAILY 30 Days Qty: 30 0RF
Discharge Orders:
Discharge Patient (As Directed); Ordered 10/08/24
Ordered By: Renate Cronin
Discharge Date and Time
Print Language: SLOVENIAN
[2024-10-08 15:08] VITALS: BP 108/49
== END 2024-10-08 17:01 | DRG 314 ==
LOC: 4 WEST ACU 13:21
PROVIDERS: Physician Assistant; ADMITTING PHYSICIAN Internal Medicine; ATTENDING PHYSICIAN Internal Medicine; EMERGENCY PHYSICIAN Emergency Medicine; FAMILY PHYSICIAN Internal Medicine
DX: I95.9 Hypotension, unspecified (principal); G93.41 Metabolic encephalopathy; I13.0 Hypertensive heart and chronic kidney disease with heart failure and stage 1 through stage 4 chronic kidney disease, or unspecified chronic kidney disease; I50.32 Chronic diastolic (congestive) heart failure; N17.9 Acute kidney failure, unspecified; E86.0 Dehydration; N18.30 Chronic kidney disease, stage 3 unspecified; E11.22 Type 2 diabetes mellitus with diabetic chronic kidney disease; E21.3 Hyperparathyroidism, unspecified; Z79.899 Other long term (current) drug therapy; E78.00 Pure hypercholesterolemia, unspecified; I25.10 Atherosclerotic heart disease of native coronary artery without angina pectoris; K21.9 Gastro-esophageal reflux disease without esophagitis; K59.00 Constipation, unspecified; L89.152 Pressure ulcer of sacral region, stage 2; R29.6 Repeated falls; Z79.82 Long term (current) use of aspirin; Z90.711 Acquired absence of uterus with remaining cervical stump; Z96.653 Presence of artificial knee joint, bilateral
CPT/HCPCS: 70450; 71045; 80048; 80053; 82306; 82550; 82962; 83036; 83735; 83970; 84100; 85025; 85027; 92610; 96360; 97167; 97530; 99285

== ENCOUNTER → 2024-10-11 13:55 | Outpatient (REF) | payer OTHER, MEDICARE, SELFPAY ==
[2024-10-11 14:21] LABS: % Basophils 0.4 % (0-2); % Eosinophils 1.4 % (0-6); % Immature Granulocytes 0.5 % (0-0.5); % Lymphocytes 10.8 % (20.5-51.1); % Monocytes 10.1 % (1.7-9.3); % Neutrophils 76.8 % (42.2-75.2); Absolute Eosinophils 0.1 10^3/uL (0-0.7); Absolute Lymphocytes 0.9 10^3/uL (1.2-3.4); Absolute Monocytes 0.9 10^3/uL (0.1-0.6); Absolute Neutrophils 6.6 10^3/uL (1.4-6.5); Hematocrit 31.5 % (37.0-47.0); Hemoglobin 10.6 g/dL (12.0-16.0); Mean Corp Hgb Conc. 33.7 g/dL (33.0-37.0); Mean Corpuscular Hgb 31.5 pg (27.0-31.0); Mean Corpuscular Volume 93.8 fL (81.0-99.0); Mean Platelet Volume 11.7 fL (7.4-10.4); Nucleated Red Blood Cells % 0 %; Platelet Count 240 10^3/uL (130-400); Red Blood Cell Count 3.36 10^6/uL (4.20-5.40); Red Cell Dist. Width 13.2 % (11.5-14.5); White Blood Cell Count 8.5 10^3/uL (4.8-10.8)
[2024-10-11 15:18] LABS: ALT (SGPT) 19 U/L (0-35); AST (SGOT) 24 U/L (14-36); Albumin 3.1 g/dl (3.5-5.0); Alkaline Phosphatase 99 U/L (38-126); Blood Urea Nitrogen 14 mg/dl (7-17); Calcium 9.8 mg/dl (8.4-10.2); Carbon Dioxide 25 mmol/L (22-30); Chloride 100 mmol/L (98-107); Glucose 136 mg/dl (70-99); Potassium 4.1 mmol/L (3.5-5.1); Sodium 132 mmol/L (135-145); Total Bilirubin 0.6 mg/dl (0.2-1.3); Total Protein 5.4 g/dl (6.3-8.2); eGFR 45.19
== END ==
LOC: OLABP 13:55
PROVIDERS: ATTENDING PHYSICIAN Family Medicine
DX: Z47.1 Aftercare following joint replacement surgery (principal); I50.30 Unspecified diastolic (congestive) heart failure; F41.9 Anxiety disorder, unspecified; D50.9 Iron deficiency anemia, unspecified; I10 Essential (primary) hypertension; E78.5 Hyperlipidemia, unspecified
CPT/HCPCS: 36415; 80053; 85025

== ENCOUNTER → 2024-10-15 09:22 | Outpatient (REF) | payer OTHER, MEDICARE, SELFPAY ==
[2024-10-15 12:00] LABS: Blood Urea Nitrogen 17 mg/dl (7-17); Calcium 9.2 mg/dl (8.4-10.2); Carbon Dioxide 27 mmol/L (22-30); Chloride 100 mmol/L (98-107); Glucose 139 mg/dl (70-99); Potassium 4.1 mmol/L (3.5-5.1); Sodium 134 mmol/L (135-145); eGFR 41.06
== END ==
LOC: OLABP 09:22
PROVIDERS: ATTENDING PHYSICIAN Family Medicine
DX: Z47.1 Aftercare following joint replacement surgery (principal); S22.089A Unspecified fracture of T11-T12 vertebra, initial encounter for closed fracture; I50.30 Unspecified diastolic (congestive) heart failure; F41.9 Anxiety disorder, unspecified; D50.9 Iron deficiency anemia, unspecified; I10 Essential (primary) hypertension; E78.5 Hyperlipidemia, unspecified; H35.30 Unspecified macular degeneration; I95.1 Orthostatic hypotension; N32.81 Overactive bladder; R26.2 Difficulty in walking, not elsewhere classified; K21.9 Gastro-esophageal reflux disease without esophagitis
CPT/HCPCS: 36415; 80048

== ENCOUNTER → 2024-10-22 11:47 | Outpatient (REF) | payer OTHER, MEDICARE, SELFPAY ==
[2024-10-22 13:20] LABS: Blood Urea Nitrogen 16 mg/dl (7-17); Calcium 8.6 mg/dl (8.4-10.2); Carbon Dioxide 25 mmol/L (22-30); Chloride 101 mmol/L (98-107); Glucose 104 mg/dl (70-99); Sodium 132 mmol/L (135-145); eGFR 45.19
== END ==
LOC: OLABP 11:47
PROVIDERS: ATTENDING PHYSICIAN Family Medicine
DX: Z47.1 Aftercare following joint replacement surgery (principal); I50.30 Unspecified diastolic (congestive) heart failure; F41.9 Anxiety disorder, unspecified; D50.9 Iron deficiency anemia, unspecified; I10 Essential (primary) hypertension; E78.5 Hyperlipidemia, unspecified; H35.30 Unspecified macular degeneration; I95.1 Orthostatic hypotension; N32.81 Overactive bladder; R26.2 Difficulty in walking, not elsewhere classified; K21.9 Gastro-esophageal reflux disease without esophagitis
CPT/HCPCS: 36415; 80048

== ENCOUNTER → 2024-10-25 11:06 | Outpatient (REF) | payer OTHER, MEDICARE, SELFPAY ==
[2024-10-25 12:01] LABS: Blood Urea Nitrogen 14 mg/dl (7-17); Calcium 8.7 mg/dl (8.4-10.2); Carbon Dioxide 27 mmol/L (22-30); Chloride 100 mmol/L (98-107); Glucose 116 mg/dl (70-99); Potassium 4.5 mmol/L (3.5-5.1); Sodium 133 mmol/L (135-145); eGFR 45.19
== END ==
LOC: OLABP 11:06
PROVIDERS: ATTENDING PHYSICIAN Family Medicine
DX: Z47.1 Aftercare following joint replacement surgery (principal); I50.30 Unspecified diastolic (congestive) heart failure; F41.9 Anxiety disorder, unspecified; D50.9 Iron deficiency anemia, unspecified; I10 Essential (primary) hypertension; E78.5 Hyperlipidemia, unspecified; H35.30 Unspecified macular degeneration; I95.1 Orthostatic hypotension; N32.81 Overactive bladder; R26.2 Difficulty in walking, not elsewhere classified; K21.9 Gastro-esophageal reflux disease without esophagitis
CPT/HCPCS: 36415; 80048

== ENCOUNTER → 2024-11-01 13:06 | Outpatient (REF) | payer MEDICARE, OTHER, SELFPAY ==
[2024-11-01 13:55] LABS: Blood Urea Nitrogen 21 mg/dl (7-17); Calcium 8.4 mg/dl (8.4-10.2); Carbon Dioxide 26 mmol/L (22-30); Chloride 106 mmol/L (98-107); Glucose 107 mg/dl (70-99); Potassium 4.3 mmol/L (3.5-5.1); Sodium 135 mmol/L (135-145); eGFR 45.19
== END ==
LOC: OLABP 13:06
PROVIDERS: ATTENDING PHYSICIAN Family Medicine
DX: G93.41 Metabolic encephalopathy (principal); I95.9 Hypotension, unspecified; E11.22 Type 2 diabetes mellitus with diabetic chronic kidney disease
CPT/HCPCS: 36415; 80048

== ENCOUNTER 2025-05-26 19:25 | Emergency (ER) | payer MEDICARE, OTHER, SELFPAY ==
[2025-05-26 19:35] VITALS: BP 135/63
[2025-05-26 19:53] VITALS: BP 147/62
[2025-05-26 20:00] VITALS: BP 128/67
[2025-05-26 21:08] LABS: Hematocrit 31.3 % (37.0-47.0); Hemoglobin 10.8 g/dL (12.0-16.0); Mean Corp Hgb Conc. 34.5 g/dL (33.0-37.0); Mean Corpuscular Volume 90.2 fL (81.0-99.0); Nucleated Red Blood Cells % 0 %; Platelet Count 201 10^3/uL (130-400); Red Cell Dist. Width 12.3 % (11.5-14.5)
[2025-05-26 21:15] LABS: INR 1.19; PT 15.3 Sec (11.4-14.6)
[2025-05-26 21:32] LABS: Troponin I < 0.012 ng/ml
[2025-05-26 22:12] LABS: ALT (SGPT) 24 U/L (0-35); AST (SGOT) 21 U/L (14-36); Albumin 4.3 g/dl (3.5-5.0); Alkaline Phosphatase 125 U/L (38-126); Blood Urea Nitrogen 37 mg/dl (7-17); Calcium 11.5 mg/dl (8.4-10.2); Carbon Dioxide 21 mmol/L (22-30); Chloride 101 mmol/L (98-107); Glucose 253 mg/dl (70-99); Potassium 4.7 mmol/L (3.5-5.1); Sodium 131 mmol/L (135-145); Total Protein 7.1 g/dl (6.3-8.2); eGFR 31.80
--- NOTE | 2025-05-26 22:16 | ED.GENMED ---
History of Present Illness
General
Chief Complaint: Chest Pain
Source: patient and family
Time Seen by Provider: 05/26/25 21:05
History of Present Illness
History of Present Illness:
Note:
CHIEF COMPLAINT(S)
Chest pain radiating to the side and back.
HISTORY OF PRESENT ILLNESS
The patient is an 85-year-old female presenting with chest pain. She reports that the pain started today and is localized in the left chest, extending over to the right upper abdomen and around the back. The patient describes a tender spot in her
left chest. She was in bed when the pain started after she attempted to turn, suspecting she might have pulled something. The pain does not worsen with arm lifting but occasionally intensifies with coughing. Breathing does not exacerbate the pain.
The patients pain manifests in the middle of the back and is described as persistent.
PHYSICAL EXAM
General: Alert, no acute distress.
Skin: Warm, dry, with a vesicular rash noted on the left back, extending around to the left chest with vesicles on a red base, indicative of shingles, terminating at the midline.
Head: Normocephalic, atraumatic.
Neck: Supple, trachea midline.
Eye Ears, Nose, Mouth and Throat: Oral mucosa moist.
Cardiovascular: Heart regular without murmur. Normal peripheral perfusion, no edema.
Respiratory: Lungs clear to auscultation, respirations are non-labored.
Gastrointestinal: Abdomen non-tender.
Back: Normal range of motion, normal alignment.
Musculoskeletal: Normal range of motion, normal strength.
Neurological: Alert and oriented to person, place, time, and situation, no focal neurological deficit observed.
Psychiatric: Cooperative, appropriate mood and affect.
CHRONIC MEDICAL CONDITIONS SIGNIFICANTLY AFFECTING CARE
Diabetes Mellitus.
PLAN
The patient will be started on antiviral medication to treat the shingles. Steroids were discussed as a possible treatment, but given the patients diabetes, they are to be avoided to prevent adverse effects on blood sugar levels.
DIFFERENTIAL DIAGNOSIS
The Differential Diagnosis includes, in no particular order and is not limited to:
1. Herpes Zoster (Shingles)
2. Myocardial Infarction
3. Costochondritis
4. Pulmonary Embolism
5. Pneumonia
6. Rib Fracture
7. Angina
8. Gallbladder Disease
9. Gastroesophageal Reflux Disease (GERD)
10. Anxiety or Panic Disorder
EKG
My independent EKG interpretation is:
- Time of EKG: Not specified
- Rhythm: Normal sinus rhythm
- Heart rate: 87 bpm
- [place]: Normal axis
- Intervals: Normal (including CT interval, QRS duration, QT interval)
- Abnormalities: No acute ischemic changes noted
Disposition:
SUMMARY OF ENCOUNTER
An 85-year-old female presented to the emergency department with pain in the left back and left chest radiating around to the front. Upon examination, vesicular lesions with an erythematous base were noted, consistent with herpes zoster (shingles)
affecting the left thoracic dermatome. An EKG was performed and found to be unremarkable, and troponin levels were negative, ruling out an acute coronary syndrome. The patient was treated with valacyclovir (Valtrex) twice daily for seven days, given
her creatinine clearance. The patient was advised to have a close outpatient follow-up.
PLAN
The patient will be initiated on valacyclovir therapy taken twice daily for seven days to combat herpes zoster. Due to the patients diabetes, careful monitoring of blood sugar is suggested. The patient was advised to have close follow-up visits with
her primary care provider to monitor her response to the treatment and manage renal insufficiency and hyperglycemia.
INDEPENDENT REVIEW OF LABS AND INTERPRETATION OF TESTS
- My independent review of EKG is unremarkable with no acute ischemic changes noted.
- My independent review of troponin is negative.
- My independent review of CBC is normal.
- My independent review of CMP shows renal insufficiency with a creatinine of 1.6.
- My independent review of glucose indicates hyperglycemia with a blood glucose level of 253.
PATIENT EDUCATION AND COUNSELING
The patient was informed about the diagnosis of shingles and the need for antiviral treatment with valacyclovir. She was educated on monitoring her blood sugar levels closely due to her diabetic condition and the influence of infections on glucose
control. Emphasis was placed on the importance of following up with her primary care provider.
FOLLOW-UP INSTRUCTIONS
The patient is advised to have a follow-up appointment with her primary care provider for further evaluation and management of shingles, renal insufficiency, and hyperglycemia.
MEDICATION RECONCILIATION
- Valacyclovir (Valtrex) prescribed as 500 mg, to be taken twice daily for seven days.
MEDICAL DECISION MAKING
-Complexity of Data Reviewed:
Chronic conditions affecting care: Diabetes Mellitus
Differential Diagnosis List:
1. Herpes Zoster (Shingles)
2. Myocardial Infarction
3. Costochondritis
4. Pulmonary Embolism
5. Pneumonia
6. Rib Fracture
7. Angina
8. Gallbladder Disease
9. Gastroesophageal Reflux Disease (GERD)
10. Anxiety or Panic Disorder
-Data:
Category 1
- My independent interpretation of EKG is unremarkable.
- Laboratory tests reviewed: EKG, CBC, CMP, Glucose, Troponin
-Risk:
Prescription medication was prescribed: Valacyclovir prescribed for shingles.
Consideration of Admission/Observation: Escalation of care including admission/observation was considered given the complexity and risk of the patients presenting complaint, exam findings, and/or their underlying comorbidities. However, ultimately,
I feel the patient is safe for outpatient management with close follow-up. Reasoning: Work-up reassuring, does not reveal any acute life/organ threatening processes, patients symptoms well controlled upon reevaluation, reexamination is reassuring,
vitals are stable, patient agreeable with discharge, reliable for follow-up.
DIAGNOSIS
- Herpes Zoster (Shingles) [ICD-10: B02.9]
- Renal Insufficiency [ICD-10: N19]
- Hyperglycemia due to Diabetes Mellitus [ICD-10: E11.65]
Past History
Past History
ED Past Medical History: CAD, CHF, GERD, HTN, Hypercholesterolemia and NIDDM
ED Past Surgical History: Cholecystectomy, Gynecological (Partial hysterectomy) and Orthopedic (Left knee arthroscopy, bilateral total knee replacement)
Social History
Tobacco: Non-smoker
Alcohol: None
Drug: None
Personal: Single
Living: alone
Employment: Retired
Family History
Family History: Other (Noncontributory)
Phy Exam
Physical Exam
Physical Exam:
.
Scores
Heart Score for Chest Pain Patients
STEMI patient?: Not applicable
Course
Orders/Labs/Results
Orders:
Orders
05/26/25 19:26
Electrocardiogram (*1) Urgent
Reason for Study: Chest Pain
EKG- Treatment ONCE
05/26/25 19:37
CR Chest - 2 Views Urgent
Comment:
Reason For Exam: chest pain
05/26/25 20:59
Complete Blood Count/With Diff Urgent
Comprehensive Metabolic Panel Urgent
Pro-BNP [NT-proBNP] Urgent
Prothrombin Time Urgent
Troponin I Urgent
05/26/25 22:08
Valacyclovir HCl [Valtrex] 1,000 mg PO NOW STA
Abnormal Lab Results
05/26/25
20:59
RBC 3.47 L 10^6/uL
(4.20-5.40)
Hgb 10.8 L g/dL
(12.0-16.0)
Hct 31.3 L %
(37.0-47.0)
MCH 31.1 H pg
(27.0-31.0)
MPV 11.6 H fL
(7.4-10.4)
Absolute Lymphs (auto) 0.7 L 10^3/uL
(1.2-3.4)
Absolute Monos (auto) 0.8 H 10^3/uL
(0.1-0.6)
Lymphocytes % 11.6 L %
(20.5-51.1)
Monocytes % 13.7 H %
(1.7-9.3)
PT 15.3 H Sec
(11.4-14.6)
Sodium 131 L mmol/L
(135-145)
Carbon Dioxide 21 L mmol/L
(22-30)
BUN 37 H mg/dl
(7-17)
Creatinine 1.6 H mg/dL
(0.6-1.0)
Glucose 253 H mg/dl
(70-99)
Calcium 11.5 H mg/dl
(8.4-10.2)
05/26/25 20:59
05/26/25 20:59
Vital Signs
Initial and Last Documented VS:
Initial Vital Signs
Temp Pulse Resp BP Pulse Ox
97.7 F 81 17 135/63 97
05/26/25 19:35 05/26/25 19:35 05/26/25 19:35 05/26/25 19:35 05/26/25 19:35
Last Documented Vital Signs
Temp Pulse Resp BP Pulse Ox
97.7 F 72 10 128/67 97
05/26/25 19:35 05/26/25 22:00 05/26/25 22:00 05/26/25 20:00 05/26/25 22:00
*Pulse Oximetry
SaO2: 97
Oxygen Mode of Delivery: Room air
Patient hypoxic: no
*Critical Care Note
Total Time (30-74mins, 75-104mins- exclusive of procedures): Not Applicable
ED Attending Note
-
Portions of this chart may have been created with voice recognition software.� Occasional wrong word or��sound alike� substitutions may have occurred due to the inherent limitations of voice recognition software.
Discharge Plan
Departure
Patient Disposition: Home (Routine Discharge)
Date of Disposition: 05/26/25
Time of Disposition: 22:17
Patient with high blood pressure during this ER visit?: No
Discharge Problem:
Herpes zoster, Acute renal insufficiency, Acute hyperglycemia
Instructions: Shingles, Acute kidney injury, High blood sugar in adults - ED (DC)
Prescriptions:
New
valacyclovir 1 gram tablet
1,000 mg PO BID Qty: 14 0RF
No Action
atorvastatin 40 mg Tablet
40 mg PO DAILY
acetaminophen 325 mg Tablet
650 mg PO Q6HPRN PRN (Reason: [place], mild pain, or fever >101F) Qty: 0 0RF
furosemide 40 mg Tablet
40 mg PO DAILY Qty: 0 0RF
aspirin [Children's Aspirin] 81 mg Tablet,Chewable
81 mg PO DAILY Qty: 0 0RF
docusate sodium [Colace] 100 mg Capsule
100 mg PO DAILYPRN PRN (Reason: constipation)
carvedilol 6.25 mg Tablet
6.25 mg PO BID Qty: 60 0RF
lisinopril 5 mg Tablet
5 mg PO DAILY Qty: 30 0RF
spironolactone 25 mg Tablet
25 mg PO DAILY
Referrals:
Adry Ahmadi MD [Family Provider, Internal Medicine]
Activity Restrictions/Additional Instructions:
Use Vaseline on your rash to keep it moist. Please see your doctor in the next 1 week for follow-up and reevaluation. Return immediately for fevers, changes in mentation, weakness of any kind or any other concerns. Please have your blood work
repeated in 1 week and have your doctor follow-up on your laboratory test
Interventions
Interventions:
*Risk Screen - Suicide Last Done: 05/26/25 19:36
*General Assessment Last Done: 05/26/25 19:36
*Neglect/Abuse Screening Last Done: 05/26/25 19:36
*ED COVID-19 Vaccine History Last Done: 12/07/25 19:36
*ED Influenza Vaccine History Last Done: 05/26/25 19:36
ED- Cardiac Assessment Last Done: 05/26/25 20:28
Discharge Date and Time
Print Language: AMHARIC
[2025-05-26] MEDS: VALTREX 1000 MG PO (22:22)
[2025-05-26 22:27] VITALS: BP 144/49
[2025-05-26 23:00] VITALS: BP 136/50
== END 2025-05-26 23:45 | disposition home or self-care (01) ==
LOC: EMR 19:25
PROVIDERS: Student in an Organized Health Care Education/Training Program; EMERGENCY PHYSICIAN Emergency Medicine; FAMILY PHYSICIAN Internal Medicine
DX: N28.9 Disorder of kidney and ureter, unspecified (principal); E11.65 Type 2 diabetes mellitus with hyperglycemia; E11.29 Type 2 diabetes mellitus with other diabetic kidney complication; E78.00 Pure hypercholesterolemia, unspecified; I11.0 Hypertensive heart disease with heart failure; I50.9 Heart failure, unspecified; I25.10 Atherosclerotic heart disease of native coronary artery without angina pectoris; I25.2 Old myocardial infarction; B02.9 Zoster without complications; Z86.711 Personal history of pulmonary embolism; Z87.01 Personal history of pneumonia (recurrent); Z90.49 Acquired absence of other specified parts of digestive tract; Z90.711 Acquired absence of uterus with remaining cervical stump; Z96.653 Presence of artificial knee joint, bilateral
CPT/HCPCS: 99283; 71046; 80053; 83880; 84484; 85025; 85610; 93005

== ENCOUNTER 2025-06-09 14:14 | Inpatient (IN) | payer MEDICARE, OTHER, SELFPAY ==
[2025-06-06] VITALS (23 sets, daily range): BP systolic 102–156; BP diastolic 28–94; PULSE 80–115; O2SAT 99; BMI 28.5; BMI 28.6
--- NOTE | 2025-06-06 02:06 | EDRN ---
Per EMS, patient is on Colace, Loperamide, Carvedilol, Atorvastatin, Furosemide, Zofran, Aspirin, Lisinopril, Spironolactone, Acetaminophen, and Vitamin D at home but unknown dosages. They states patient is allergic to IV Dye; pt unsure of this.
[2025-06-06 02:29] LABS: Hematocrit 32.7 % (37.0-47.0); Hemoglobin 11.6 g/dL (12.0-16.0); Mean Corp Hgb Conc. 35.5 g/dL (33.0-37.0); Mean Corpuscular Volume 90.1 fL (81.0-99.0); Nucleated Red Blood Cells % 0 %; Platelet Count 346 10^3/uL (130-400); Red Cell Dist. Width 13.1 % (11.5-14.5)
[2025-06-06 02:46] LABS: ALT (SGPT) 26 U/L (0-35); AST (SGOT) 22 U/L (14-36); Albumin 4.2 g/dl (3.5-5.0); Alkaline Phosphatase 143 U/L (38-126); Blood Urea Nitrogen 36 mg/dl (7-17); Calcium 11.5 mg/dl (8.4-10.2); Carbon Dioxide 15 mmol/L (22-30); Chloride 104 mmol/L (98-107); Glucose 191 mg/dl (70-99); Lipase 136 U/L (23-300); Potassium 5.1 mmol/L (3.5-5.1); Sodium 130 mmol/L (135-145); Total Protein 6.8 g/dl (6.3-8.2); eGFR 34.36
--- NOTE | 2025-06-06 05:22 | ED.GENMED ---
History of Present Illness
General
Chief Complaint: Abdominal Symptoms
Source: patient and records
Exam Limitations: none
Time Seen by Provider: 06/06/25 04:53
Nursing documentation reviewed up to this point in time: agreed with
History of Present Illness
History of Present Illness:
Patient very pleasant 85-year-old female presents with nausea some upper abdominal pain onset around 7 PM vomited, no diarrhea no fever or chills no chest pain or shortness of breath gallbladder has been removed, now is feeling better
Past History
Past History
ED Past Medical History: CAD, CHF, GERD, HTN, Hypercholesterolemia and NIDDM
ED Past Surgical History: Cholecystectomy, Gynecological (Partial hysterectomy) and Orthopedic (Left knee arthroscopy, bilateral total knee replacement)
Social History
Tobacco: Non-smoker
Alcohol: None
Drug: None
Personal: Single
Living: alone
Employment: Retired
Family History
Family History: Other (Noncontributory)
Review of Systems
Review of Systems
All Other Systems: Not applicable
Constitutional: Denies fever or fatigue
EENT: Reports no symptoms
Respiratory: Reports no symptoms; Denies cough or trouble breathing
Cardiac: Denies chest pain
ABD/GI: Reports abdominal pain, nausea and vomiting; Denies diarrhea
: Reports no symptoms
Musculoskeletal: Reports no symptoms
Skin: Reports no symptoms
Neurological: Reports weakness
Endocrine: Reports no symptoms
Phy Exam
Physical Exam
Physical Exam:
Physical Exam
General: no apparent distress, not acutely ill
Neck: Lips are slightly dry
Heart: s1/s2 regular rate and rhythm, no murmur. equal radial pulses.
Lungs: no acute respiratory distress. clear bilaterally
Abdomen: Soft nontender
Neuro: alert and oriented. no focal neurological deficits
Skin: no rash
Psychiatric: well kept. interactive and cooperative
Extremities: no edema.
Course
Orders/Labs/Results
Orders:
Orders
06/06/25 02:12
Complete Blood Count/With Diff Urgent
Comprehensive Metabolic Panel Urgent
Lipase Urgent
06/06/25 05:03
Electrocardiogram (*1) Urgent
Reason for Study: Abdominal Pain
Ondansetron Injectable [Zofran] 4 mg IV NOW STA
Pantoprazole [Protonix IV] 40 mg IV NOW STA
Obstruct Series W/PA Chest [CR Obstruct Series W/pa Chest] Urgent
Comment:
Reason For Exam: ovmiting
06/06/25 05:04
EKG- Treatment ONCE
06/06/25 05:13
0.9% Sodium Chloride 1000 ml [Nss] 1,000 ml IV BOLUS
06/06/25 05:30
Troponin I Urgent
06/06/25 06:26
Diphenhydramine [Benadryl] 25 mg IV NOW STA
Ondansetron Injectable [Zofran] 4 mg IV NOW STA
Abnormal Lab Results
06/06/25
02:12
WBC 11.8 H 10^3/uL
(4.8-10.8)
RBC 3.63 L 10^6/uL
(4.20-5.40)
Hgb 11.6 L g/dL
(12.0-16.0)
Hct 32.7 L %
(37.0-47.0)
MCH 32.0 H pg
(27.0-31.0)
MPV 11.1 H fL
(7.4-10.4)
Abs Immat Gran (auto) 0.1 H 10^3/uL
(0-0.05)
Absolute Neuts (auto) 9.2 H 10^3/uL
(1.4-6.5)
Absolute Monos (auto) 0.9 H 10^3/uL
(0.1-0.6)
Immature Gran % 0.8 H %
(0-0.5)
Neutrophils % 77.9 H %
(42.2-75.2)
Lymphocytes % 11.0 L %
(20.5-51.1)
Sodium 130 L mmol/L
(135-145)
Carbon Dioxide 15 L mmol/L
(22-30)
BUN 36 H mg/dl
(7-17)
Creatinine 1.5 H mg/dL
(0.6-1.0)
Glucose 191 H mg/dl
(70-99)
Calcium 11.5 H mg/dl
(8.4-10.2)
Alkaline Phosphatase 143 H U/L
(38-126)
06/06/25 02:12
06/06/25 02:12
Vital Signs
Initial and Last Documented VS:
Initial Vital Signs
Temp Pulse Resp BP Pulse Ox
98.6 F 101 16 151/64 96
06/06/25 01:54 06/06/25 01:54 06/06/25 01:54 06/06/25 01:54 06/06/25 01:54
Last Documented Vital Signs
Temp Pulse Resp BP Pulse Ox
98.6 F 101 16 140/58 98
06/06/25 01:54 06/06/25 01:54 06/06/25 01:54 06/06/25 05:00 06/06/25 05:27
MDM/Problems Addressed
Differential Diagnosis Includes:
Enteritis obstruction gastritis less likely ACS appendicitis
MDM/Problems Addressed:
Vomiting
Chronic conditions affecting care: Previous abdomnial surgery
Acute Exacerbation and/or Progression of Chronic Illness: Previous abdomnial surgery
*Radiology
Radiology exam reviewed: preliminary read by ED provider (No obstruction)
*Pulse Oximetry
SaO2: 96
Oxygen Mode of Delivery: Room air
Patient hypoxic: no
*EKG
Interpreted by ED Provider?: Yes
Interpretation: normal
Comparison EKG: no comparison EKG present
Heart Rate: 78
Rate: normal
Rhythm: sinus
Ischemia: no ischemia
*Net Mobile Developer Interpretation
Rate: normal
Interpretation: normal
Heart Rate: 78
Rhythm: sinus
*Critical Care Note
Total Time (30-74mins, 75-104mins- exclusive of procedures): Not Applicable
Update Note
Update Note:
Update patient is nontoxic labs are noted his little acidotic will start saline, check obstruction series, antiemetic PPI, serial abdominal exams
6:30 AM update patient tells me she still nauseous, not tolerating ice chips
Labs are noted allergies noted will keep n.p.o. continue IV fluids antiemetics low threshold to admit
ED Attending Note
-
Portions of this chart may have been created with voice recognition software.� Occasional wrong word or��sound alike� substitutions may have occurred due to the inherent limitations of voice recognition software.
Discharge Plan
Departure
Prescriptions:
No Action
atorvastatin 40 mg Tablet
40 mg PO DAILY
acetaminophen 325 mg Tablet
650 mg PO Q6HPRN PRN (Reason: [place], mild pain, or fever >101F) Qty: 0 0RF
furosemide 40 mg Tablet
40 mg PO DAILY Qty: 0 0RF
aspirin [Children's Aspirin] 81 mg Tablet,Chewable
81 mg PO DAILY Qty: 0 0RF
docusate sodium [Colace] 100 mg Capsule
100 mg PO DAILYPRN PRN (Reason: constipation)
carvedilol 6.25 mg Tablet
6.25 mg PO BID Qty: 60 0RF
lisinopril 5 mg Tablet
5 mg PO DAILY Qty: 30 0RF
spironolactone 25 mg Tablet
25 mg PO DAILY
valacyclovir 1 gram tablet
1,000 mg PO BID Qty: 14 0RF
Referrals:
Adry Ahmadi MD [Family Provider, Internal Medicine]
Interventions
Interventions:
*General Assessment Last Done: 06/06/25 01:58
*Neglect/Abuse Screening Last Done: 06/06/25 05:28
*ED COVID-19 Vaccine History Last Done: 06/06/25 01:58
*ED Influenza Vaccine History Last Done: 06/06/25 01:58
[facility] Fall Risk Assessment Tool Last Done: 06/06/25 01:58
*Risk Screen - Suicide (C-SSRS) Last Done: 06/06/25 01:58
Discharge Date and Time
Print Language: SAMOAN
[2025-06-06] MEDS: PROTONIX IV 40 MG IV (05:47)
[2025-06-06] MEDS: NSS 1000 IV ×2 (05:47→14:31)
[2025-06-06] MEDS: ZOFRAN 4 MG IV ×2 (05:47→06:45)
[2025-06-06 06:38] LABS: Troponin I 0.016 ng/ml
[2025-06-06] MEDS: BENADRYL 25 MG IV (06:45)
[2025-06-06] MEDS: OMNIPAQUE 50 ML PO (06:45)
--- NOTE | 2025-06-06 08:00 | HPS.HSE ---
Addendum entered and electronically signed by Noelle Valencia MD 06/06/25 14:19:
I personally performed a history and physical exam of the patient and discussed management with the resident. I reviewed the resident's note and agree with the documented findings and plan of care HPI/CC.
GENERAL: elderly female in no apparent distress
HEENT: NC/AT
HEART: regular rate and rhythm, +S1, +S2, VICENTE
LUNGS : clear to auscultation bilaterally
ABDOM: soft, nontender, nondistended, + bowel sounds
EXT: no cyanosis, clubbing, or edema
NEUROLOGIC: grossly intact
SKIN: crusted lesions on left back wrapping around to under left breast
nausea/vomiting--likely due to constipation--pt denies any sick contacts or suspect food ingestion--CT scan abdomen/pelvis with air and stool in the colon--no obstruction or perforation--enema and antiemetics--cont bowel regimen
Hyponatremia (130)--likely hypovolemic--received IVF--follow labs--bladder scan (bladder distended on CT scan)
CAD/Essential HTN--continue aspirin-- continue lisinopril
HFpEF--without exacerbation--cont coreg, spironolactone/lasix
HLD-continue statin
Chronic Hypercalcemia- calcium 11.5- monitor bmp--was pt worked up for primary hyperparathyroidism?--will check iPTH and PTH related peptide
NIDDM--continue januvia--SSI
CKD3- cr 1.5 (baseline is 1.2)- monitor cmp
Recent Shingles--rash on L mid back and underneath L breast is resolving, crusted over lesions
Code status-- Full
DVT proph-- SCDs
Original Note:
Family Physician
-
Family Physician: Adry Ahmadi
Chief Complaint
-
Nausea, vomiting
History of Present Illness
This is a 85 year old female patient presenting to [facility] for concerns of nausea and vomiting. She lives alone at [facility]. She states that last night around 8pm she started to feel nauseas. A few hours later, she
had two episodes of vomiting which were non-bloody. She denies any fever, chills or diarrhea. She has not had any recent travel history or hx of sick contacts. No recent medication changes. She does state that she is recently recovering from a
shingles episode on her L mid back and underneath her L breast. She says her rash is healing, is not painful or itchy and was prescribed Valtrex but she did not finish the full course.
She is normally mildly constipated on a regular basis and thinks she last had bowel movements on Tuesday.
Due to the uncontrollable nausea and vomiting, she had come to the hospital.
Medical History
Past Medical History
Past Medical History: Reports CAD, CHF, NIDDM, Renal Failure, Valvular Disease and Other (Ambulatory dysfunction)
Past Surgical History: Reports Cholecystectomy, Gynocological (Partial hysterectomy) and Orthopedic (Bilateral TKA)
Social History
Tobacco: Non-smoker
Alcohol: None
Drug: None
Personal: Single
Living: Alone
Employment: Retired
Family History
Family History: Not pertinent
Allergies / Home Medications
Allergies reflects when Allergies were last updated in [employer].
Home Medications with original date entered in [employer]
Allergy/Medication List:
Allergies
Allergy/AdvReac Type Severity Reaction Status Date / Time
NSAIDS (Non-Steroidal Allergy Unknown Verified 06/06/25 01:54
Anti-Inflamma
sulindac Allergy Unknown Verified 06/06/25 01:54
IV Dye Allergy Unknown Uncoded 06/06/25 01:54
Home Medications
atorvastatin 40 mg tablet 40 mg PO QPM High Cholesterol 10/23/23
aspirin 81 mg chewable tablet (Children's Aspirin) 81 mg PO DAILY Blood clot prevention/tx #0 tabs 03/09/24
furosemide 40 mg tablet 40 mg PO DAILY Fluid retention/Swelling #0 tabs 03/09/24
docusate sodium 100 mg capsule (Colace) 100 mg PO DAILYPRN PRN constipation 07/04/24
spironolactone 25 mg tablet 25 mg PO DAILY Fluid Retention/Swelling 05/26/25
acetaminophen 325 mg tablet 650 mg PO Q6HPRN PRN mild pain 06/06/25
carvedilol 6.25 mg tablet 6.25 mg PO BID Heart Disease/Condition 06/06/25
lisinopril 5 mg tablet 5 mg PO DAILY Blood Pressure 06/06/25
sitagliptin phosphate 25 mg tablet (Januvia) 25 mg PO DAILY Diabetes 06/06/25
Review of Systems
-
A 12 point ROS was completed and negative except as noted: Yes
Abdomen/GI: Reports Nausea, Vomiting and Constipated
Physical Exam
Vital Signs
Vital Signs
Temp Pulse Resp BP Pulse Ox
98.6 F 101 16 140/58 98
06/06/25 01:54 06/06/25 01:54 06/06/25 01:54 06/06/25 05:00 06/06/25 05:27
Physical Exam
General: Conversant and Good Appetite
HEENT: NormoCephalic
Respiratory: Clear and Non Labored Respirations
Cardiac: S1/S2, Regular Rhythm and Murmur
GI: Soft, Non Tender and Non Distended
Musculoskeletal: No Clubbing and No Edema
Skin: Warm, Dry and Rash (shingles on L mid back and underneath L breast; crusted lesions)
Neuro: Awake, Alert and Oriented
Psych: Calm
Laboratory Results
-
06/06/25 02:12
06/06/25 02:12
Laboratory Results
Total Bilirubin 0.8 mg/dl (0.2-1.3) 06/06/25 02:12
AST 22 U/L (14-36) 06/06/25 02:12
ALT 26 U/L (0-35) 06/06/25 02:12
Alkaline Phosphatase 143 U/L (38-126) H 06/06/25 02:12
Troponin I 0.016 ng/ml 06/06/25 05:30
Lipase 136 U/L (23-300) 06/06/25 02:12
Impression/Plan
-
IMPRESSION:This is a 85 year old female patient presenting to [facility] for concerns of nausea and vomiting
PLAN:
#Constipation with nausea vomiting
#Hyponatremia
- CT abd:no evidence of obstruction or perforation, bladder is distended, cyst in the right adnexa which was seen previously but appears larger,fatty atrophy of the pancreas
- Na 130
- start IVF NS
- will trial regular diet as she is having appetite now
- Bowel regiment, will have standing miralax, docusate
- will order enema
- monitor cmp
- bladder scan protocol
- PT ordered
#CAD
#HTN
-continue aspirin
- continue lisinopril
#HFpEF
-continue coreg
-continue spironolactone
-continue lasix
#HLD
-continue statin
#Chronic Hypercalcemia
- calcium 11.5
- monitor bmp
#NIDDM
-continue januvia
#CKD3
- cr 1.5 (baseline is 1.2)
- monitor cmp
#Recent Shingles
-rash on L mid back and underneath L breast is resolving, crusted over lesions
Code: Full
DVT: SCDs
--- NOTE | 2025-06-06 08:45 | CM ---
Addendum entered by Steffany Forbes 06/06/25 16:31:
OBS/HUGO form left with patient and called to [facility] [phone], regarding OBS/HUGO form and request to call back regarding discharge planning.
Plan; home with VN/SNF aides to restart. watch for SNF
Original Note:
Patient seen in ED with physician. Patient states that she lives alone in [facility] and that her PCP is Dr. Westfall. Patient uses the [facility] in [place]. Patient stated that she has a neice and Nephew help with visiting and doctor
visits. Patient stated she has an aide 9-5am everyday. Patient stated that she has moms meals for suppers 7 days, and patient had [facility] previously. Patient is admitted as OBS/HUGO and CM reviewed form with patient. CM will return to provide
document. Patient plan is to go home with her aide and she is not intrested in SNF placement, pending physician recommendation. PT/OT to assess when medically appropriate per physician. CM will continue to follow for discharge planning needs.
Plan; home with VN vs SNF; aides to restart, watch for SNF needs.
[2025-06-06] MEDS: MIRALAX PO (11:46)
[2025-06-06] MEDS: SENOKOT-S PO (11:46)
[2025-06-06] MEDS: ZESTRIL 5 MG PO (11:47)
[2025-06-06] MEDS: LASIX 40 MG PO (11:48)
[2025-06-06] MEDS: LOW STRENGTH ASPIRIN 81 MG PO (11:48)
[2025-06-06] MEDS: LIPITOR 40 MG PO ×2 (11:48→18:20)
[2025-06-06] MEDS: TYLENOL 650 MG PO ×2 (11:52→21:22)
[2025-06-06] MEDS: NSS IV (12:10)
[2025-06-06 16:58] LABS: Glucose - Point of Care 163 mg/dl (70-99)
[2025-06-06] MEDS: NOVOLOG FLEXPEN-LOW RESISTANCE 1 UNITS SC (17:51)
[2025-06-06] MEDS: COREG 6.25 MG PO (21:22)
[2025-06-06] MEDS: SENOKOT-S 1 TABLET PO (21:22)
[2025-06-06 22:08] LABS: ALT (SGPT) 20 U/L (0-35); AST (SGOT) 19 U/L (14-36); Albumin 3.4 g/dl (3.5-5.0); Alkaline Phosphatase 105 U/L (38-126); Blood Urea Nitrogen 29 mg/dl (7-17); Calcium 11.0 mg/dl (8.4-10.2); Carbon Dioxide 18 mmol/L (22-30); Chloride 106 mmol/L (98-107); Estimated Creatinine Clearance 25 ml/min; Glucose 177 mg/dl (70-99); Potassium 5.5 mmol/L (3.5-5.1); Sodium 127 mmol/L (135-145); Total Protein 5.9 g/dl (6.3-8.2); eGFR 37.33
[2025-06-06 23:03] LABS: Glucose - Point of Care 172 mg/dl (70-99)
[2025-06-07 03:01] LABS: Blood Urea Nitrogen 29 mg/dl (7-17); Calcium 11.1 mg/dl (8.4-10.2); Carbon Dioxide 15 mmol/L (22-30); Chloride 109 mmol/L (98-107); Estimated Creatinine Clearance 25 ml/min; Glucose 138 mg/dl (70-99); Potassium 5.4 mmol/L (3.5-5.1); Sodium 131 mmol/L (135-145); eGFR 37.33
--- NOTE | 2025-06-07 05:20 | PTCARENOTE ---
Received patient from ED into room 1144-01 from ED. Admitted with constipation and nausea, patient now reports nausea has resolved. AAOx3, VENETIE. Lungs diminished on RA. VS trends documented in flowsheet. Patient with painful, scabbed rash noted on L
upper back and L chest, recent diagnosis and treatment for shingles. Purewick in place draining clear yellow urine. Oriented to unit and call cotton. Continuing with plan of care.
[2025-06-07 06:00] VITALS: BMI 28.6
--- NOTE | 2025-06-07 07:13 | W.PN.HOSP.TC ---
Addendum entered and electronically signed by Noelle Valencia MD 06/07/25 19:49:
I saw and evaluated the patient independently. I reviewed and discussed the resident�s note and agree with findings and plan as documented by Dr. Enriquez.
GENERAL: elderly female in no apparent distress
HEENT: NC/AT
HEART: regular rate and rhythm, +S1, +S2, VICENTE
LUNGS : clear to auscultation bilaterally
ABDOM: soft, nontender, nondistended, + bowel sounds
EXT: no cyanosis, clubbing, or edema
NEUROLOGIC: grossly intact
SKIN: crusted lesions on left back wrapping around to under left breast
nausea/vomiting--likely due to constipation--pt denies any sick contacts or suspect food ingestion--CT scan abdomen/pelvis with air and stool in the colon--no obstruction or perforation--enema and antiemetics--cont bowel regimen--successful
CHANELLE--creat increased 1.5 from baseline 1.2--consult and apprec renal--cont IVF
anemia--likely of chronic disease--likely dilutional from IVF as pt was hemoconcentrated on admission from N/V
Hyponatremia (130)--likely hypovolemic--received IVF--follow labs--bladder scan (bladder distended on CT scan)
CAD/Essential HTN--continue aspirin-- continue lisinopril
HFpEF--without exacerbation--cont coreg, spironolactone/lasix
HLD-continue statin
Chronic Hypercalcemia- calcium 11.5- monitor bmp--was pt worked up for primary hyperparathyroidism?--will check iPTH and PTH related peptide
NIDDM--continue januvia--SSI
CKD3- cr 1.5 (baseline is 1.2)- monitor cmp
Recent Shingles--rash on L mid back and underneath L breast is resolving, crusted over lesions
Code status-- Full
DVT proph-- SCDs
anticipate d/c tomorrow
Original Note:
Today's Communication/Plan
-
Bowel regimen
4. Consults
Assessment / Plan
Assessment / Plan
Ms Pride is an 85 year old female patient with a PMH of CAD, CHF, NIDDM, Renal Failure, Valvular Disease and, Ambulatory dysfunction( ambulates with RW)presented yesterday due to nausea and vomiting 2 episodes
Received Enema in the ED
1) Constipation with nausea vomiting
Patient with last bowel movement of more than 7 days
Nausea and 2 episodes of vomiting prior to presentation
Abdominal CT done shows a stool in the, no obstruction no perforation
Repeats mucus and molasses enema [200 mL]
Ensure bowel regimen
Advance to regular diet
Anemia
11.6 to 10.5
Probably dilutional from IVF infusion (drop in all cell lines)
Recheck in am
CHANELLE on CKD 3B
Serum creatinine 1.5 (baseline of 1.2)
With multiple electrolyte abnormalities
Likely hypovolemic/prerenal
Nephro consult
Hyponatremia
Likely likely hyponatremic
ALT 131 from 127 following the infusion
Hyperkalemia
Downtrending now 5.3
Check BMP in a.m.
Acute urinary retention
CT scan with distended bladder
Straight cath protocol produced
Continue straight caths
Monitor input output
Hypercalcemia
History of chronic hypercalcemia
Int PTH/ionized calcium
Likely contributing to constipation
#Recent Shingles
-rash on L mid back and underneath L breast is resolving, crusted over lesions
Hypomagnesemia
Magnesium
CAD/Essential HTN--
Continue aspirin-- continue lisinopril
HFpEF--without exacerbation--
cont coreg, spironolactone/lasix
HLD-
Continue statin
NIDDM--
Continue januvia--SSI
Diabetic diet
Above plan discussed with patient's niece, Candy
Code status-- Full
DVT proph-- SCDs
Anticipated Discharge: Within 24 hours
Subjective/Interval History
-
Date of Service: June 07, 2025
No more vomiting
Has yet to move her bowels, last bowel movement was last Tuesday
Objective Data
-
Labs:
Laboratory Results
06/06/25 06/07/25 06/07/25
21:46 01:47 06:00
WBC Pending
Hgb Pending
Hct Pending
Plt Count Pending
Sodium 127 L 131 L Pending
Potassium 5.5 H 5.4 H Pending
Chloride 106 109 H Pending
Carbon Dioxide 18 L 15 L Pending
BUN 29 H 29 H Pending
Creatinine 1.4 H 1.4 H Pending
Glucose 177 H 138 H Pending
Calcium 11.0 H 11.1 H Pending
Total Bilirubin 1.0
AST 19
ALT 20
Alkaline Phosphatase 105
06/07/25
06:00
WBC
Hgb
Hct
Plt Count
Sodium
Potassium
Chloride
Carbon Dioxide
BUN
Creatinine
Glucose
Calcium Pending
Total Bilirubin Pending
AST Pending
ALT Pending
Alkaline Phosphatase Pending
Vital Signs:
Vital Signs
Temp Pulse Resp BP Pulse Ox
98.3 F 65 18 135/52 99
06/06/25 23:44 06/06/25 23:44 06/06/25 23:44 06/06/25 23:44 06/06/25 23:44
I&O
06/06/25 06/07/25 06/08/25
06:59 06:59 06:59
Intake Total 360 / 360
Output Total 700 / 700
Balance -340 / -340
Review of Systems
-
Unable to obtain full review of systems at this time due to: Other (Some memory issues)
History Source: Patient
Physical Exam
-
General: Appears Chronically Ill
HEENT: Normocephalic and Atraumatic
Respiratory: Clear to Auscultation
Cardiac: Regular Rhythm and S1/S2
GI: Soft, Nontender, Nondistended and Normal Bowel Sounds
Genito-urinary: No Costovertebral Tender
Musculoskeletal: No Edema
Neuro: Awake, Alert, Oriented and AO x 3
Psych: Calm
[2025-06-07 07:17] VITALS: BP 111/67
[2025-06-07 08:01] LABS: Glucose - Point of Care 159 mg/dl (70-99)
[2025-06-07] MEDS: MIRALAX 17 GRAMS PO (08:33)
[2025-06-07] MEDS: COREG 6.25 MG PO ×2 (08:34→19:50)
[2025-06-07] MEDS: TYLENOL 650 MG PO ×3 (08:34→21:38)
[2025-06-07] MEDS: SENOKOT-S 1 TABLET PO ×2 (08:34→19:50)
[2025-06-07] MEDS: LOW STRENGTH ASPIRIN 81 MG PO (08:34)
[2025-06-07] MEDS: ZESTRIL 5 MG PO (08:35)
[2025-06-07] MEDS: LASIX 40 MG PO (08:35)
[2025-06-07] MEDS: ALDACTONE 25 MG PO (08:35)
[2025-06-07 09:00] LABS: Hematocrit 30.3 % (37.0-47.0); Hemoglobin 10.5 g/dL (12.0-16.0); Mean Corp Hgb Conc. 34.7 g/dL (33.0-37.0); Mean Corpuscular Volume 92.7 fL (81.0-99.0); Nucleated Red Blood Cells % 0 %; Platelet Count 263 10^3/uL (130-400); Red Cell Dist. Width 13.4 % (11.5-14.5)
[2025-06-07] MEDS: JANUVIA 25 MG PO (09:08)
[2025-06-07] MEDS: NOVOLOG FLEXPEN-LOW RESISTANCE 1 UNITS SC ×2 (09:15→18:36)
[2025-06-07 09:46] LABS: ALT (SGPT) 19 U/L (0-35); AST (SGOT) 17 U/L (14-36); Albumin 3.5 g/dl (3.5-5.0); Alkaline Phosphatase 118 U/L (38-126); Blood Urea Nitrogen 25 mg/dl (7-17); Calcium 11.0 mg/dl (8.4-10.2); Carbon Dioxide 13 mmol/L (22-30); Chloride 108 mmol/L (98-107); Estimated Creatinine Clearance 23 ml/min; Glucose 151 mg/dl (70-99); Magnesium 1.5 mg/dl (1.6-2.3); Potassium 5.3 mmol/L (3.5-5.1); Sodium 131 mmol/L (135-145); Total Protein 6.0 g/dl (6.3-8.2); eGFR 34.36
[2025-06-07 12:09] LABS: Glycohemoglobin (HgbA1c) 9.2 % (4.0-5.9)
--- NOTE | 2025-06-07 12:46 | W.CON.NEPH ---
Consultation
-
Date/Time Consultation Requested: 06/07/2025 11 AM
Date/Time Consultation Performed: 06/07/2025 12 PM
Requesting Provider: Dr. Valencia
Performing Provider: Dr. Patrick
Reason for Consultation: CHANELLE
Medical History
-
Chief Complaint: Nausea vomiting
History of Present Illness:
This is an 85-year-old female who has hypertension controlled on a multidrug regimen, diabetes mellitus type 2 controlled on Januvia, hyperlipidemia controlled on statin therapy. She also has a history of chronic hypercalcemia which has been
evaluated in the past with noted elevated PTH previously. It appears that this has been followed with observation alone over time. She comes to the emergency room because of nausea and vomiting for 36 to 48 hours. She states that she has vomited
about 4 times in that timeframe. Oral intake has been slightly less so she has been drinking fluids. She has had no issues taking her medications. She denies any abdominal pain or diarrhea. She also denies any lightheadedness currently. On
admission she was noted to have CHANELLE with a creatinine of 1.5 from a baseline of closer to 1.2. She also had metabolic acidosis nongap with hyponatremia hyperkalemia.
Past Medical History
CAD
CHF
Diabetes mellitus type 2
Cholecystectomy
Partial hysterectomy
Bilateral TKA
Hypertension
Hypercalcemia
Social History
Tobacco: Non-Smoker
Alcohol: None
Family History
Family History: Not Pertinent
Allergies / Home Medications
Allergy/AdvReac Type Severity Reaction Status Date / Time
NSAIDS (Non-Steroidal Allergy Unknown Verified 06/06/25 01:54
Anti-Inflamma
sulindac Allergy Unknown Verified 06/06/25 01:54
IV Dye Allergy Unknown Uncoded 06/06/25 01:54
�Medication �Instructions �Recorded �Confirmed �Type
atorvastatin 40 mg tablet 40 mg PO QPM High Cholesterol 10/23/23 06/06/25 History
aspirin 81 mg chewable tablet 81 mg PO DAILY Blood clot 03/09/24 06/06/25 Rx
(Children's Aspirin) prevention/tx #0 tabs
furosemide 40 mg tablet 40 mg PO DAILY Fluid 03/09/24 06/06/25 Rx
retention/Swelling #0 tabs
docusate sodium 100 mg capsule 100 mg PO DAILYPRN PRN constipation 07/04/24 06/06/25 History
(Colace)
spironolactone 25 mg tablet 25 mg PO DAILY Fluid 05/26/25 06/06/25 History
Retention/Swelling
acetaminophen 325 mg tablet 650 mg PO Q6HPRN PRN mild pain 06/06/25 06/06/25 History
carvedilol 6.25 mg tablet 6.25 mg PO BID Heart 06/06/25 06/06/25 History
Disease/Condition
lisinopril 5 mg tablet 5 mg PO DAILY Blood Pressure 06/06/25 06/06/25 History
sitagliptin phosphate 25 mg tablet 25 mg PO DAILY Diabetes 06/06/25 06/06/25 History
(Januvia)
Review of Systems
-
Nausea improving
All other systems: Negative unless noted
Physical Exam
Vital Signs
Vital Signs
Temp Pulse Resp BP Pulse Ox
98.1 F 77 16 111/67 97
06/07/25 07:17 06/07/25 07:17 06/07/25 07:17 06/07/25 07:17 06/07/25 07:17
Lab Results
WBC 10.5 10^3/uL (4.8-10.8) 06/07/25 08:28
RBC 3.27 10^6/uL (4.20-5.40) L 06/07/25 08:28
Hgb 10.5 g/dL (12.0-16.0) L 06/07/25 08:28
Hct 30.3 % (37.0-47.0) L 06/07/25 08:28
Plt Count 263 10^3/uL (130-400) D 06/07/25 08:28
Sodium 131 mmol/L (135-145) L 06/07/25 08:28
Potassium 5.3 mmol/L (3.5-5.1) H 06/07/25 08:28
Chloride 108 mmol/L (98-107) H 06/07/25 08:28
Carbon Dioxide 13 mmol/L (22-30) L* 06/07/25 08:28
BUN 25 mg/dl (7-17) H 06/07/25 08:28
Creatinine 1.5 mg/dL (0.6-1.0) H 06/07/25 08:28
eGFR 34.36 06/07/25 08:28
Glucose 151 mg/dl (70-99) H 06/07/25 08:28
Calcium 11.0 mg/dl (8.4-10.2) H 06/07/25 08:28
Albumin 3.5 g/dl (3.5-5.0) 06/07/25 08:28
Laboratory Tests
10/25/24 11/01/24 05/26/25
06:35 06:15 20:59
Sodium 133 L
Potassium 4.7
Creatinine 1.2 H 1.6 H
Dyq-A-Nawwilgaqsz Pept 382
06/06/2025 CT abdomen pelvis without IV contrast
IMPRESSION:
1. There is no evidence of obstruction or perforation. There is a small umbilical hernia containing only fat.
2. The bladder is distended
3. There is a cyst in the right adnexa which was seen previously but appears larger.
4. There is fatty atrophy of the pancreas
5. Thickening of the adrenal glands is similar to prior studies
Physical Exam
Patient is awake alert oriented and in no distress. Mood and affect were pleasant, insight and judgment were good. Pupils are equal round and reactive to light, extraocular movements are intact, sclera were anicteric. Hearing was normal, ears and
nose are intact. Oropharynx was clear. Neck was supple with trachea midline and no thyromegaly. Heart was regular rate and rhythm without rubs. Lower extremities without edema. Lungs were clear to auscultation bilaterally and with normal
excursion. Abdomen was soft, nontender, with normal active bowel sounds, and no hepatosplenomegaly. Skin was without rash and with normal turgor.
Data Reviewed
-
CT Scan: Report Reviewed by me
Medical Tests (Nuc Med, Echo etc): Image Personally Visualized and interpreted (EKG 06/06/2025 by my reading normal sinus rhythm)
Labs: Labs Reviewed by me
Old Records: Reviewed
Assessment/Plan
-
Assessment
CHANELLE likely prerenal
Hyponatremia likely some chronic component
Hyperkalemia
Metabolic acidosis
Hypertension
Diabetes mellitus type 2
Hyperlipidemia
Nausea vomiting
Hypercalcemia
Plan
Follow BMP
Check urine studies
Continue IV fluids
Hold lisinopril and spironolactone given hyperkalemia
Check PTH, likely primary hyperparathyroidism. She is not an ideal candidate for surgery and so eventual treatment with Sensipar would likely be beneficial
[2025-06-07 13:25] LABS: Glucose - Point of Care 211 mg/dl (70-99)
[2025-06-07] MEDS: NOVOLOG FLEXPEN-LOW RESISTANCE 2 UNITS SC (13:45)
[2025-06-07 14:53] LABS: Urine Character Clear (Clear)
[2025-06-07 15:00] VITALS: BP 138/48
--- NOTE | 2025-06-07 15:17 | CM ---
CM spoke with patient niece and she indicated that patient aides would start tomorrow, and she would call to restart. Niece is unable to be with patient tonight or assist with transportation today. CM updated physician and will call referral to
[facility] and request Social work as well as PT/OT. CM also spoke with [facility] and recommended calling [facility], patient already on services from [facility] and has been assessed for additional hours. CM will continue to follow for discharge
planing needs.
Plan; for discharge home with aides and [facility], Niece and nephew
--- NOTE | 2025-06-07 16:19 | PTCARENOTE ---
Pt had a large BM, she is no longer having ABD pain adnd she is asking if we can hold off on the enema. MD made aware and she is agreeable to hold off on the enema at the moment.
[2025-06-07 17:48] LABS: Glucose - Point of Care 155 mg/dl (70-99)
[2025-06-07] MEDS: LIPITOR 40 MG PO (18:36)
[2025-06-07 21:29] LABS: Glucose - Point of Care 211 mg/dl (70-99)
[2025-06-07] MEDS: NSS 1000 IV (21:38)
--- NOTE | 2025-06-07 22:35 | PTCARENOTE ---
Resumed care of pt laying in bed AAOx3. Slightly foregetful at times. [place]. HR irreg. POX 99% on RA. Lungs clear. + bowel, round abd. Pt denies any complaints of abd pain/ discomfort at this time. Pt reports some back pain. PRN pain medication
administered as ordered. Scabbed area on back from prior shingles rash. Pt inc of urine, Aurelia care provided, new pure wick in place. New sacral foam applied to sacrum. Palpable peripheral pulses present. +1 B/L LE edema. Heels elevated on pillows.
Right forearm int infusing NSS@60ml/hr. Pt repositioned per comfort. Oral care complete. Call cotton in reach. Will continue to monitor.
[2025-06-07 23:00] VITALS: BP 122/56
[2025-06-08] MEDS: TYLENOL 650 MG PO ×4 (05:16→21:23)
[2025-06-08 05:31] VITALS: BMI 28.6
[2025-06-08 07:00] VITALS: BP 147/57
[2025-06-08 07:16] LABS: Hematocrit 27.7 % (37.0-47.0); Hemoglobin 9.5 g/dL (12.0-16.0); Mean Corp Hgb Conc. 34.3 g/dL (33.0-37.0); Mean Corpuscular Volume 92.0 fL (81.0-99.0); Platelet Count 232 10^3/uL (130-400); Red Cell Dist. Width 13.3 % (11.5-14.5)
--- NOTE | 2025-06-08 07:27 | W.PN.HOSP.TC ---
Addendum entered and electronically signed by Noelle Valencia MD 06/08/25 13:13:
I saw and evaluated the patient independently. I reviewed and discussed the resident�s note and agree with findings and plan as documented by Dr. Patel.
GENERAL: elderly female in no apparent distress
HEENT: NC/AT
HEART: regular rate and rhythm, +S1, +S2, VICENTE
LUNGS : clear to auscultation bilaterally
ABDOM: soft, nontender, nondistended, + bowel sounds
EXT: no cyanosis, clubbing, or edema
NEUROLOGIC: grossly intact
SKIN: crusted lesions on left back wrapping around to under left breast
nausea/vomiting--likely due to constipation--pt denies any sick contacts or suspect food ingestion--CT scan abdomen/pelvis with air and stool in the colon--no obstruction or perforation--enema and antiemetics--cont bowel regimen--successful--no
further nausea
CHANELLE--creat increased 1.5 from baseline 1.2, now 1.4-- apprec renal--stop IVF and samsca planned for today
anemia--likely of chronic disease--likely dilutional from IVF as pt was hemoconcentrated on admission from N/V
Hyponatremia (130)--on 06/08 down to 128--likely hypovolemic--stopped IVF--follow labs--bladder scan (bladder distended on CT scan)--samsca to be given today
CAD/Essential HTN--continue aspirin-- continue lisinopril
HFpEF--without exacerbation--cont coreg, lasix can be restarted tomorrow
HLD--continue statin
Chronic Hypercalcemia- calcium 11.5- monitor bmp--was pt worked up for primary hyperparathyroidism?--will check iPTH and PTH related peptide
NIDDM--continue januvia--SSI
CKD3- cr 1.5 (baseline is 1.2)- monitor cmp
Recent Shingles--rash on L mid back and underneath L breast is resolving, crusted over lesions
Code status-- Full
DVT proph-- SCDs
anticipate d/c tomorrow--need another day for labs
Original Note:
Today's Communication/Plan
-
- Will stop IVF
- Plan for d/c on bowel regimen, pending clearance from renal
Assessment / Plan
Assessment / Plan
85yo F with a hx of CAD, HFpEF, NIDDM, CKD IIIb, valvular dz, and ambulatory dysfxn who presented with n/v, found to be constipated, now improving s/p regimen of laxatives.
#Nausea/vomiting in s/o constipation
Last BM reported >7 days prior to presentation. No BM in hospital as of 06/07. CT a/p demonstrating stool burden. Potential contribution from chronic hypercalcemia.
Today - Voided x2 yesterday, NB.
- Continue senna/miralax regimen inpt
- Discharge with bowel regimen including miralax & senna/docusate
#Hypercalcemia
#Suspected hyperparathyroidism (primary vs. secondary)
Pt with hx of elevated Ca and elevated PTH. Ca 11.0 on 06/07. Likely primary hyperparathyroidism vs. secondary hyperparathyroidism in s/o CKD. With secondary, would see elevated phosphorus and low vit D 1,25.
- Pending re-check PTH
- Check phosphorus & vitamin D 25OH & 1,25OH
- Per renal, pt likely good candidate for cinacalcet (not surgery)
#Hyponatremia
#Hyperkalemia
Na 131, K 5.3; Na abnormalities appear chronic. K typically wnl. HyperK and hypoNa likely 2/2 lisinopril & spironolactone in s/o volume loss/vomiting. Less likely adrenal insuff given improving s/p fluids. Urine sodium elevated 105 in s/o
hyponatremia, indicating renal salt wasting. Urine osm not elevated, SIADH less likely. Will continue to hold diuretics.
Today, Na 128, K 5.4
- Monitor BMP
- Holding lisinopril & spironolactone given hyperK
- Check PTH
- Continue IVF
- Renal following, appreciate recs
#Anemia
Hgb 11.6>10.5>9.5. Thought to be dilutional from IVF, although continuing to worsen w PO diet intake. MCV wnl making microcytic iron def/occult blood loss unlikely. May still be dilutional given decrease in all cell lines, vs. likely element of
anemia of chronic dz given known CKD. Hgb from prior admissions has fluctuated this low as well, supporting anemia of CKD.
- Continue to monitor
- Check iron & reticulocyte count
#CHANELLE on CKD IIIb
Pt with Cr elevated to 1.5 from baseline 1.2. Likely prerenal in s/o poor PO intake, hypovolemia w nausea/vomiting.
Today - Cr 1.4
- Renal following, appreciate recs
- Continue IVF
- Trend BMP
#Urinary retention, resolved
CT a/p w distended bladder.
Today, balance -400 mL. Voiding spontaneously with purewick, not requiring straight cath.
- Trend I&O
#Chronic
#Recent shingles - rash on L mid back and L breast resolving
#CAD/essential HTN - continue aspirin, hold lisinopril
#HFpEF - no exacerbation, continue carvedilol
#HLD - continue statin
#NIDDM - continue januvia, SSI, DM diet
#Global
- DVT ppx: SCD
- Code: full
- Diet: diabetic diet
- Dispo: pending resolution of medical problems
Anticipated Discharge: Today
Subjective/Interval History
-
Date of Service: June 08, 2025
2 BM yesterday. Refused enema. No complaints, feels well. Per RN, no longer requiring straight cath.
Objective Data
-
Labs:
Laboratory Results
06/08/25
06:26
WBC 8.5
Hgb 9.5 L
Hct 27.7 L
Plt Count 232
Sodium Pending
Potassium Pending
Chloride Pending
Carbon Dioxide Pending
BUN Pending
Creatinine Pending
Glucose Pending
Calcium Pending
Vital Signs:
Vital Signs
Temp Pulse Resp BP Pulse Ox
98.4 F 73 16 122/56 96
06/07/25 23:00 06/07/25 23:00 06/07/25 23:00 06/07/25 23:00 06/07/25 23:00
I&O
06/07/25 06/08/25 06/09/25
06:59 06:59 06:59
Intake Total 360 / 360 1200 / 1200
Output Total 700 / 700 1600 / 1600
Balance -340 / -340 -400 / -400
Review of Systems
-
Unable to obtain full review of systems at this time due to: Dementia
History Source: Patient
Constitutional: Reports No Symptoms
Respiratory: Reports No Symptoms
Cardiac: Reports No Symptoms
Abdomen/GI: Reports No Symptoms
Genitourinary: Reports No Symptoms
Musculoskeletal: Reports No Symptoms
Skin: Reports No Symptoms
Neuro: Reports No Symptoms
Physical Exam
-
General: No Apparent Distress and Comfortable
HEENT: Normocephalic and Atraumatic
Respiratory: Clear to Auscultation and Non Labored Respirations
Cardiac: Regular Rhythm
GI: Soft, Nontender and Nondistended
Musculoskeletal: No Edema
Skin: Warm and Dry
Neuro: Awake and Alert
Psych: Calm
Data Reviewed
-
Total Time Spent with Patient (in minutes): 10
Critical Care Time (in minutes): 35
Labs: Labs Reviewed by me
[2025-06-08 07:48] LABS: Blood Urea Nitrogen 22 mg/dl (7-17); Calcium 10.9 mg/dl (8.4-10.2); Carbon Dioxide 19 mmol/L (22-30); Chloride 105 mmol/L (98-107); Estimated Creatinine Clearance 25 ml/min; Glucose 144 mg/dl (70-99); Potassium 5.4 mmol/L (3.5-5.1); Sodium 128 mmol/L (135-145); eGFR 37.33
[2025-06-08 08:07] LABS: Iron 55 ug/dl (37-170)
[2025-06-08 08:17] LABS: Reticulocyte Count 2.2 % (0.4-2.8)
[2025-06-08 08:43] LABS: Glucose - Point of Care 173 mg/dl (70-99)
[2025-06-08] MEDS: JANUVIA 25 MG PO (08:53)
[2025-06-08] MEDS: LOW STRENGTH ASPIRIN 81 MG PO (08:53)
[2025-06-08] MEDS: NOVOLOG FLEXPEN-LOW RESISTANCE 1 UNITS SC ×2 (08:53→16:45)
[2025-06-08] MEDS: MIRALAX 17 GRAMS PO (08:54)
[2025-06-08] MEDS: SENOKOT-S 1 TABLET PO ×2 (08:54→21:23)
[2025-06-08] MEDS: COREG 6.25 MG PO ×2 (08:54→21:23)
[2025-06-08] MEDS: NSS IV (10:33)
--- NOTE | 2025-06-08 10:58 | W.PN.NEPH.PH ---
Today's Communication / Plan
-
samsca
Assessment/Plan
-
Assessment
CHANELLE likely prerenal
Hyponatremia likely some chronic component
Hyperkalemia
Metabolic acidosis
Hypertension
Diabetes mellitus type 2
Hyperlipidemia
Nausea vomiting
Hypercalcemia
Plan
follow BMP
cap IVF
samsca today
await PTH, likely primary hyperparathyroidism. She is not an ideal candidate for surgery and so eventual treatment with Sensipar would likely be beneficial
can restart lasix tomorrow
-
-
Date of Service: June 08, 2025
CC / HPI / ROS
-
Chief Complaint:
CHANELLE
History of Present Illness:
CHANELLE/Cr slightly better 1.4
Na stable low 128
K up 5.4
acidosis persists
Review of Systems:
no CP/SOB
eating a little more
Labs
-
Labs:
Sodium 128 mmol/L (135-145) L 06/08/25 06:26
Potassium 5.4 mmol/L (3.5-5.1) H 06/08/25 06:26
Chloride 105 mmol/L (98-107) 06/08/25 06:26
Carbon Dioxide 19 mmol/L (22-30) L 06/08/25 06:26
BUN 22 mg/dl (7-17) H 06/08/25 06:26
Creatinine 1.4 mg/dL (0.6-1.0) H 06/08/25 06:26
eGFR 37.33 06/08/25 06:26
Glucose 144 mg/dl (70-99) H 06/08/25 06:26
Calcium 10.9 mg/dl (8.4-10.2) H 06/08/25 06:26
Phosphorus 2.7 mg/dl (2.5-4.5) 06/08/25 06:26
Albumin 3.5 g/dl (3.5-5.0) 06/07/25 08:28
Physical Exam
-
Vital Signs:
Vital Signs
Temp Pulse Resp BP Pulse Ox
98.1 F 70 16 147/57 97
06/08/25 07:00 06/08/25 08:54 06/08/25 07:00 06/08/25 08:54 06/08/25 07:00
Cardiovascular:: Regular rate and rhythm
Respiratory:: Bilateral: CTA
Lung Excursion:: Normal
Abdomen:: Nontender and Soft
Bowel Sounds:: Normal
Extremity Edema:: +1: Bilateral:
[2025-06-08] MEDS: SAMSCA 15 MG PO (12:27)
--- NOTE | 2025-06-08 12:37 | W.PN.UPDATE ---
Update Note
Progress Note Update
Spoke with [facility] Gupta , updated on plan for staying 1 additional night tonight to watch labs stabilize. Plan for dc tomorrow.
[2025-06-08 12:57] LABS: Glucose - Point of Care 260 mg/dl (70-99)
[2025-06-08] MEDS: NOVOLOG FLEXPEN-LOW RESISTANCE 3 UNITS SC (13:25)
[2025-06-08 13:36] LABS: Vitamin D, 25-OH*** 19.0 ng/mL (30-80)
[2025-06-08 13:50] LABS: Hematocrit 28.3 % (37.0-47.0); Hemoglobin 9.9 g/dL (12.0-16.0); Mean Corp Hgb Conc. 35.0 g/dL (33.0-37.0); Mean Corpuscular Volume 91.9 fL (81.0-99.0); Platelet Count 251 10^3/uL (130-400); Red Cell Dist. Width 13.4 % (11.5-14.5)
[2025-06-08 15:00] VITALS: BP 140/58
--- NOTE | 2025-06-08 15:11 | CM ---
Per Candy no aides today, but will have aides tomorrow and would like to know as soon as possible when patient is cleared for discharge. Patient has been set up with [facility] visiting nurses. Daughter, Candy is in the process of increasing services in
home.
[facility]
[2025-06-08] MEDS: LIPITOR 40 MG PO (16:45)
[2025-06-08 16:55] LABS: Glucose - Point of Care 159 mg/dl (70-99)
[2025-06-08] MEDS: ZOFRAN 4 MG IV (17:34)
[2025-06-08 21:50] LABS: Glucose - Point of Care 147 mg/dl (70-99)
[2025-06-08 23:10] VITALS: BP 142/58
[2025-06-09 03:57] VITALS: BMI 27.8
[2025-06-09] MEDS: TYLENOL 650 MG PO ×3 (06:14→19:38)
[2025-06-09 07:01] LABS: Hematocrit 31.6 % (37.0-47.0); Hemoglobin 11.1 g/dL (12.0-16.0); Mean Corp Hgb Conc. 35.1 g/dL (33.0-37.0); Mean Corpuscular Volume 90.5 fL (81.0-99.0); Nucleated Red Blood Cells % 0.8 %; Platelet Count 294 10^3/uL (130-400); Red Cell Dist. Width 13.8 % (11.5-14.5)
--- NOTE | 2025-06-09 07:16 | W.PN.HOSP.TC ---
Addendum entered and electronically signed by Noelle Valencia MD 06/09/25 14:18:
I saw and evaluated the patient independently. I reviewed and discussed the resident�s note and agree with findings and plan as documented by Dr. Patel.
GENERAL: elderly female in no apparent distress
HEENT: NC/AT
HEART: regular rate and rhythm, +S1, +S2, VICENTE
LUNGS : clear to auscultation bilaterally
ABDOM: soft, nontender, nondistended, + bowel sounds
EXT: no cyanosis, clubbing, or edema
NEUROLOGIC: grossly intact
SKIN: crusted lesions on left back wrapping around to under left breast
nausea/vomiting--likely due to constipation--pt denies any sick contacts or suspect food ingestion--CT scan abdomen/pelvis with air and stool in the colon--no obstruction or perforation--enema and antiemetics--cont bowel regimen--successful--no
further nausea
CHANELLE--creat increased 1.5 from baseline 1.2, now 1.3-- apprec renal--stop IVF and s/p samsca
anemia--likely of chronic disease--likely dilutional from IVF as pt was hemoconcentrated on admission from N/V--no active bleeding noted
Hyponatremia (130)--on 06/08 down to 128, today 132--likely hypovolemic--stopped IVF--follow labs--bladder scan (bladder distended on CT scan)--s/p samsca 06/08
CAD/Essential HTN--continue aspirin-- continue lisinopril
HFpEF--without exacerbation--cont coreg, lasix can be restarted tomorrow
HLD--continue statin
Primary Hyperparathyroidism--Chronic Hypercalcemia- iPTH elevated at 280, PTHrP pending, Vit D deficient--- monitor bmp--cont sensipar--not candidate for surgery at this time--ongoing w/u as outpt--f/u with endo if desired
NIDDM--continue januvia--SSI
CKD3- cr 1.5 on admission (baseline is 1.2)- monitor cmp
Recent Shingles--rash on L mid back and underneath L breast is resolving, crusted over lesions --gabapentin for pain
Code status-- Full
DVT proph-- SCDs
anticipate d/c tomorrow--need another day for labs--home with VN
Original Note:
Today's Communication/Plan
-
- Start cinacalcet 30mg daily
- Start bisphosphonate (aredia IV)
- Continue tolvaptan (06/08-), per renal
- Start Lokelma course
- Holding lisinopril & spironolactone given hyperK
- Renal following, appreciate recs
- Continue senna/miralax regimen inpt
- Consider additional enema today
- Consider renally dosed gabapentin for post herpetic neuralgia
Assessment / Plan
Assessment / Plan
85yo F with a hx of CAD, HFpEF, NIDDM, CKD IIIb, valvular dz, and ambulatory dysfxn who presented with n/v, found to be constipated, now improving s/p regimen of laxatives.
#Primary hyperparathyroidism
#Hypercalcemia
Pt with hx of elevated Ca and elevated PTH. Ca 11.0 on 06/07. Likely primary hyperparathyroidism vs. secondary hyperparathyroidism in s/o CKD. With secondary, would see elevated phosphorus. Phosphorus wnl. Vit D 25OH low. PTH elevated 280.7.
Today - Ca 11.3
- Start cinacalcet 30mg daily
- Start bisphosphonate (aredia IV)
- Renal following, appreciate recs
#Hyponatremia, improving
#Hyperkalemia, worsened
Na 131, K 5.3; Na abnormalities appear chronic. K typically wnl. HyperK and hypoNa likely 2/2 lisinopril & spironolactone in s/o volume loss/vomiting. Less likely adrenal insuff given improving s/p fluids. Urine sodium elevated 105 in s/o
hyponatremia, indicating renal salt wasting. Urine osm not elevated, SIADH less likely. Will continue to hold diuretics.
Today, Na 132, K 5.7
- Continue tolvaptan (06/08-), per renal
- Start Lokelma course
- Holding lisinopril & spironolactone given hyperK
- Monitor BMP
- Continue IVF
- Renal following, appreciate recs
#Nausea/vomiting in s/o constipation, resolved
Last BM reported >7 days prior to presentation. CT a/p demonstrating stool burden. Likely contribution from chronic hypercalcemia. BM x2 on 06/07.
Today - no BMs yesterday
- Continue senna/miralax regimen inpt
- Consider additional enema today
- Discharge with bowel regimen including miralax & senna/docusate
#Anemia, improving
Hgb 11.6>10.5>9.5. Thought to be dilutional from IVF, although continuing to worsen w PO diet intake. MCV wnl making microcytic iron def/occult blood loss unlikely. May still be dilutional given decrease in all cell lines, vs. likely element of
anemia of chronic dz given known CKD. Hgb from prior admissions has fluctuated this low as well, supporting anemia of CKD. Iron 55 wnl. Reticulocyte count 2.2 wnl. Most likely dilutional.
Today - 11.1
- Continue to monitor
#CHANELLE on CKD IIIb, improving
Pt with Cr elevated to 1.5 from baseline 1.2. Likely prerenal in s/o poor PO intake, hypovolemia w nausea/vomiting.
Today - 1.3
- Renal following, appreciate recs
- Continue IVF
- Trend BMP
#Urinary retention, resolved
CT a/p w distended bladder.
Today, balance -1600 mL. Voiding spontaneously with purewick, not requiring straight cath.
- Trend I&O
#Chronic
#Recent shingles; post-herpetic neuralgia - rash on L mid back and underneath L breast resolving; consider renally dosed gabapentin
#CAD/essential HTN - continue aspirin, hold lisinopril
#HFpEF - no exacerbation, continue carvedilol
#HLD - continue statin
#NIDDM - continue januvia, SSI, DM diet
#Global
- DVT ppx: SCD
- Code: full
- Diet: diabetic diet
- Dispo: pending resolution of lytes
Anticipated Discharge: 24 - 48 hours
Subjective/Interval History
-
Date of Service: June 09, 2025
Pt feeling well. Denies any abd pain. States that she did have BM yesterday. Only pain is underneath L breast from area of resolving shingles, post-herpetic neuralgia. Says that tylenol helps somewhat.
Objective Data
-
Labs:
Laboratory Results
06/09/25
06:03
WBC 9.5
Hgb 11.1 L
Hct 31.6 L
Plt Count 294
Sodium Pending
Potassium Pending
Chloride Pending
Carbon Dioxide Pending
BUN Pending
Creatinine Pending
Glucose Pending
Calcium Pending
Total Bilirubin Pending
AST Pending
ALT Pending
Alkaline Phosphatase Pending
Vital Signs:
Vital Signs
Temp Pulse Resp BP Pulse Ox
97.9 F 74 20 142/58 96
06/08/25 23:10 06/08/25 23:10 06/08/25 23:10 06/08/25 23:10 06/08/25 23:10
I&O
06/08/25 06/09/25 06/10/25
06:59 06:59 06:59
Intake Total 1200 / 1200 600 / 600
Output Total 1600 / 1600 2200 / 2200
Balance -400 / -400 -1600 / -1600
Review of Systems
-
Unable to obtain full review of systems at this time due to: Dementia
History Source: Patient
Constitutional: Reports No Symptoms
EENT: Reports No Symptoms Reported
Respiratory: Reports No Symptoms
Cardiac: Reports No Symptoms
Abdomen/GI: Reports No Symptoms
Genitourinary: Reports No Symptoms
Musculoskeletal: Reports No Symptoms
Skin: Reports Rash and Other (post herpetic neuralgia)
Neuro: Reports No Symptoms
Physical Exam
-
General: No Apparent Distress and Comfortable
HEENT: Normocephalic and Atraumatic
Respiratory: Clear to Auscultation and Non Labored Respirations
Cardiac: Regular Rhythm
GI: Soft, Nontender and Nondistended
Musculoskeletal: No Edema
Skin: Warm, Dry and Other (SKs and some erythema underneath L breast in crease; no sign of infection or active vesicles )
Neuro: Awake and Alert
Psych: Calm
Data Reviewed
-
Total Time Spent with Patient (in minutes): 10
Critical Care Time (in minutes): 45
Labs: Labs Reviewed by me
[2025-06-09 07:32] LABS: ALT (SGPT) 17 U/L (0-35); AST (SGOT) 22 U/L (14-36); Albumin 3.6 g/dl (3.5-5.0); Alkaline Phosphatase 115 U/L (38-126); Blood Urea Nitrogen 21 mg/dl (7-17); Calcium 11.3 mg/dl (8.4-10.2); Carbon Dioxide 15 mmol/L (22-30); Chloride 111 mmol/L (98-107); Estimated Creatinine Clearance 26 ml/min; Glucose 159 mg/dl (70-99); Potassium 5.7 mmol/L (3.5-5.1); Sodium 132 mmol/L (135-145); Total Protein 6.3 g/dl (6.3-8.2); eGFR 40.80
[2025-06-09 07:58] VITALS: BP 160/66
[2025-06-09] MEDS: MIRALAX 17 GRAMS PO ×2 (07:58→19:39)
[2025-06-09] MEDS: SENOKOT-S 1 TABLET PO ×2 (07:58→19:37)
[2025-06-09] MEDS: LOW STRENGTH ASPIRIN 81 MG PO (07:58)
[2025-06-09] MEDS: COREG 6.25 MG PO ×2 (07:58→19:38)
[2025-06-09] MEDS: JANUVIA 25 MG PO (07:58)
[2025-06-09 08:03] LABS: Glucose - Point of Care 167 mg/dl (70-99)
[2025-06-09] MEDS: NOVOLOG FLEXPEN-LOW RESISTANCE 1 UNITS SC (08:19)
--- NOTE | 2025-06-09 08:55 | W.PN.NEPH.PH ---
Today's Communication / Plan
-
aredia
Assessment/Plan
-
Assessment
CHANELLE likely prerenal
Hyponatremia likely some chronic component
Hyperkalemia
Metabolic acidosis
Hypertension
Diabetes mellitus type 2
Hyperlipidemia
Nausea vomiting
Hypercalcemia
Plan
follow BMP
IVF with bicarb
Aredia
lokelma course
PTH elevated=primary hyperparathyroidism. She is not an ideal candidate for surgery and so treatment with Sensipar
She cannot go home today, current laboratory abnormalities should justify inpatient status
-
-
Date of Service: June 09, 2025
CC / HPI / ROS
-
Chief Complaint:
CHANELLE
History of Present Illness:
CHANELLE/Cr slightly better 1.3
Na up to 132 with samsca
K up 5.7
acidosis persists
Review of Systems:
no CP/SOB
lethargic
Labs
-
Labs:
WBC 9.5 10^3/uL (4.8-10.8) 06/09/25 06:03
RBC 3.49 10^6/uL (4.20-5.40) L 06/09/25 06:03
Hgb 11.1 g/dL (12.0-16.0) L 06/09/25 06:03
Hct 31.6 % (37.0-47.0) L 06/09/25 06:03
Plt Count 294 10^3/uL (130-400) 06/09/25 06:03
Sodium 132 mmol/L (135-145) L 06/09/25 06:03
Potassium 5.7 mmol/L (3.5-5.1) H 06/09/25 06:03
Chloride 111 mmol/L (98-107) H 06/09/25 06:03
Carbon Dioxide 15 mmol/L (22-30) L 06/09/25 06:03
BUN 21 mg/dl (7-17) H 06/09/25 06:03
Creatinine 1.3 mg/dL (0.6-1.0) H 06/09/25 06:03
eGFR 40.80 06/09/25 06:03
Glucose 159 mg/dl (70-99) H 06/09/25 06:03
Calcium 11.3 mg/dl (8.4-10.2) H 06/09/25 06:03
Phosphorus 2.7 mg/dl (2.5-4.5) 06/08/25 06:26
Albumin 3.6 g/dl (3.5-5.0) 06/09/25 06:03
Physical Exam
-
Vital Signs:
Vital Signs
Temp Pulse Resp BP Pulse Ox
97.6 F 74 16 160/66 98
06/09/25 07:58 06/09/25 07:58 06/09/25 07:58 06/09/25 07:58 06/09/25 07:58
Cardiovascular:: Regular rate and rhythm
Respiratory:: Bilateral: Coarse
Lung Excursion:: Normal
Abdomen:: Nontender and Soft
Bowel Sounds:: Normal
Extremity Edema:: None: Bilateral:
[2025-06-09] MEDS: AREDIA 270 MG IV (09:50)
[2025-06-09] MEDS: SENSIPAR 30 MG PO (10:14)
[2025-06-09 10:30] LABS: Cortisol, Random 33.1 ug/dl
[2025-06-09 11:59] LABS: Glucose - Point of Care 211 mg/dl (70-99)
[2025-06-09] MEDS: NOVOLOG FLEXPEN-LOW RESISTANCE 2 UNITS SC (12:02)
[2025-06-09] MEDS: SODIUM BICARBONATE 1150 MEQ IV (12:02)
[2025-06-09] MEDS: LOKELMA 10 GRAM PO ×2 (14:11→21:52)
[2025-06-09 15:00] VITALS: BP 144/68
[2025-06-09 15:28] VITALS: BP 144/58; PULSE 79
[2025-06-09] MEDS: LIPITOR 40 MG PO (17:13)
[2025-06-09] MEDS: NOVOLOG FLEXPEN-LOW RESISTANCE SC (17:13)
[2025-06-09 17:25] LABS: Glucose - Point of Care 130 mg/dl (70-99)
[2025-06-09] MEDS: NEURONTIN 100 MG PO (19:38)
[2025-06-09 21:43] LABS: Glucose - Point of Care 158 mg/dl (70-99)
[2025-06-09 23:14] VITALS: BP 160/94
[2025-06-10] MEDS: SODIUM BICARBONATE 1150 MEQ IV ×2 (00:16→11:45)
[2025-06-10 02:19] VITALS: BMI 28.1
[2025-06-10] MEDS: TYLENOL 650 MG PO (04:20)
[2025-06-10] MEDS: LOKELMA 10 GRAM PO ×3 (05:00→17:19)
[2025-06-10 07:00] VITALS: BP 173/62
--- NOTE | 2025-06-10 07:10 | W.PN.HOSP.TC ---
Addendum entered and electronically signed by Hubert Dai MD 06/10/25 14:13:
I saw and evaluated the patient. I reviewed the resident�s note and agree with findings and plan as documented in the resident�s note.
nausea/vomiting--likely due to constipation--CT scan abdomen/pelvis with air and stool in the colon--no obstruction or perforation-symptoms resolved with bowel regimen.
CHANELLE on CKD stage IIIB - renal function back to normal
anemia--likely of chronic disease--likely dilutional from IVF as pt was hemoconcentrated on admission from N/V--no active bleeding noted
Hyponatremia -likely hypovolemic--post IVF. alos needed to be provided samsca 06/08-- Na of 130 today
CAD/Essential HTN--continue aspirin-- lisinopril needs to be held with hyperkalemia --blood pressure uncontrolled and dose of Coreg increased to 12-1/2 mg twice daily
HFpEF--without exacerbation--cont coreg, lasix can be restarted tomorrow
HLD--continue statin
Primary Hyperparathyroidism--Chronic Hypercalcemia- iPTH elevated at 280, PTHrP pending, Vit D deficient--- got dose of pamidronic acid- on sensipar - ca 10.3 today - f/u with endocrinology in office required.
NIDDM--continue januvia--SSI
Hyperkalemia -driven by renal dysfunction and metabolic acidosis. Lisinopril to be held. Patient got dose of Lokelma. Potassium is normalized. Low potassium diet added
Metabolic acidosis -resolved with bicarb IVF.
Recent Shingles--rash on L mid back and underneath L breast is resolving, crusted over lesions --gabapentin for pain
Somnolence -patient more somnolent, rule out any developing encephalopathy. Check COVID/flu. Checks x-ray as patient was coughing rule out any developing pneumonia
Code status-- Full
PT recommended SNF rehab. Family planning to take home with extra help/aid
DVT proph-- SCDs
Original Note:
Today's Communication/Plan
-
- Continue cinacalcet, tolvaptan, bisphosphonate, lokelma
- Bowel regimen
- Renal following, appreciate recs
- Additional coreg dose to lower BP today
- D/c home w VN pending renal
Assessment / Plan
Assessment / Plan
85yo F with a hx of CAD, HFpEF, NIDDM, CKD IIIb, valvular dz, and ambulatory dysfxn who presented with n/v, found to be constipated, now improving s/p regimen of laxatives, found to have primary hyperparathyroidism, hyperkalemia, hyponatremia, &
CHANELLE, now being treated w electrolyte correction.
#Primary hyperparathyroidism
#Hypercalcemia, improving
Pt with hx of elevated Ca and elevated PTH. Ca 11.0 on 06/07. Likely primary hyperparathyroidism vs. secondary hyperparathyroidism in s/o CKD. With secondary, would see elevated phosphorus. Phosphorus wnl. Vit D 25OH low. PTH elevated 280.7.
Today - 10.3
- Continue cinacalcet 30mg daily
- Continue bisphosphonate (aredia IV)
- Renal following, appreciate recs
#Hyponatremia, worsened
#Hyperkalemia, resolved
Na 131, K 5.3; Na abnormalities appear chronic. K typically wnl. HyperK and hypoNa likely 2/2 lisinopril & spironolactone in s/o volume loss/vomiting. Less likely adrenal insuff given improving s/p fluids. Urine sodium elevated 105 in s/o
hyponatremia, indicating renal salt wasting. Urine osm not elevated, SIADH less likely. Will continue to hold diuretics.
Today, Na 130, K 4.5
- Continue tolvaptan (06/08-), per renal
- Continue Lokelma course
- Holding lisinopril & spironolactone given hyperK
- Monitor BMP
- Continue IVF
- Renal following, appreciate recs
#Nausea/vomiting in s/o constipation, resolved
Last BM reported >7 days prior to presentation. CT a/p demonstrating stool burden. Likely contribution from chronic hypercalcemia. BM x2 on 06/07.
Today - BM overnight
- Continue senna/miralax regimen inpt (miralax bid)
- Discharge with bowel regimen including miralax & senna/docusate
#CHANELLE on CKD IIIb, improving
Pt with Cr elevated to 1.5 from baseline 1.2. Likely prerenal in s/o poor PO intake, hypovolemia w nausea/vomiting.
Today - stable 1.3
- Renal following, appreciate recs
- Continue IVF
- Trend BMP
#Anemia, improving
Hgb 11.6>10.5>9.5. Thought to be dilutional from IVF, although continuing to worsen w PO diet intake. MCV wnl making microcytic iron def/occult blood loss unlikely. May still be dilutional given decrease in all cell lines, vs. likely element of
anemia of chronic dz given known CKD. Hgb from prior admissions has fluctuated this low as well, supporting anemia of CKD. Iron 55 wnl. Reticulocyte count 2.2 wnl. Most likely dilutional.
Today - 11.5
- Continue to monitor
#Urinary retention, resolved
CT a/p w distended bladder.
Today, balance -1600 mL. Voiding spontaneously with purewick, not requiring straight cath.
- Trend I&O
#Chronic
#Recent shingles; post-herpetic neuralgia - rash on L mid back and underneath L breast resolving; consider renally dosed gabapentin
#CAD - continue aspirin
#Essential HTN - hold lisinopril & spironolactone ; will give additional dose of coreg this am 6.5 and 12.5 this pm, due to systolic 165 06/10, will monitor
#HFpEF - no exacerbation, continue carvedilol, currently holding lasix, consider restarting today, pending renal
#HLD - continue statin
#NIDDM - continue januvia, SSI, DM diet
#Global
- DVT ppx: SCD
- Code: full
- Diet: diabetic diet
- Dispo: pending resolution of lytes/renal signoff, plan for home w VN per case management
Anticipated Discharge: 24 - 48 hours
Subjective/Interval History
-
Date of Service: June 10, 2025
No complaints this morning. Denies any abdominal pain or nausea/vomiting. States that she did have the postherpetic neuralgia underneath the left breast last night. Does not think that the gabapentin made a significant difference. Thinks that
she had a bowel movement overnight last night, but does not completely remember.
Objective Data
-
Labs:
Laboratory Results
06/10/25
06:00
WBC Pending
Hgb Pending
Hct Pending
Plt Count Pending
Sodium Pending
Potassium Pending
Chloride Pending
Carbon Dioxide Pending
BUN Pending
Creatinine Pending
Glucose Pending
Calcium Pending
Total Bilirubin Pending
AST Pending
ALT Pending
Alkaline Phosphatase Pending
Vital Signs:
Vital Signs
Temp Pulse Resp BP Pulse Ox
97.9 F 69 20 160/94 97
06/09/25 23:14 06/09/25 23:14 06/09/25 23:14 06/09/25 23:14 06/09/25 23:14
I&O
06/09/25 06/10/25 06/11/25
06:59 06:59 06:59
Intake Total 600 / 600 1540 / 1540
Output Total 2200 / 2200 1400 / 1400
Balance -1600 / -1600 140 / 140
Review of Systems
-
Unable to obtain full review of systems at this time due to: Dementia
History Source: Patient
Constitutional: Reports No Symptoms
Respiratory: Reports No Symptoms
Cardiac: Reports No Symptoms
Abdomen/GI: Reports No Symptoms
Musculoskeletal: Reports No Symptoms
Skin: Reports Other (Postherpetic neuralgia)
Neuro: Reports No Symptoms
Physical Exam
-
General: No Apparent Distress and Comfortable
HEENT: Normocephalic and Atraumatic
Respiratory: Clear to Auscultation and Non Labored Respirations
Cardiac: Regular Rhythm
GI: Soft, Nontender and Nondistended
Musculoskeletal: No Edema
Skin: Warm, Dry and Other (SKs and some erythema underneath L breast in crease; no sign of infection or active vesicles )
Neuro: Awake and Alert
Psych: Calm
Data Reviewed
-
Total Time Spent with Patient (in minutes): 10
Critical Care Time (in minutes): 35
Labs: Labs Reviewed by me
[2025-06-10 08:50] LABS: Glucose - Point of Care 140 mg/dl (70-99)
[2025-06-10] MEDS: NOVOLOG FLEXPEN-LOW RESISTANCE SC ×2 (09:03→17:26)
[2025-06-10] MEDS: COREG 6.25 MG PO ×2 (09:05→11:45)
[2025-06-10] MEDS: SENOKOT-S 1 TABLET PO ×2 (09:06→20:17)
[2025-06-10] MEDS: JANUVIA 25 MG PO (09:07)
[2025-06-10] MEDS: LOW STRENGTH ASPIRIN 81 MG PO (09:07)
[2025-06-10] MEDS: MIRALAX 17 GRAMS PO ×2 (09:08→20:17)
[2025-06-10] MEDS: NEURONTIN 100 MG PO ×2 (09:08→20:17)
[2025-06-10] MEDS: SENSIPAR 30 MG PO (09:48)
[2025-06-10 10:05] LABS: Hematocrit 32.9 % (37.0-47.0); Hemoglobin 11.5 g/dL (12.0-16.0); Mean Corp Hgb Conc. 35.0 g/dL (33.0-37.0); Mean Corpuscular Volume 90.6 fL (81.0-99.0); Nucleated Red Blood Cells % 0 %; Platelet Count 291 10^3/uL (130-400); Red Cell Dist. Width 13.7 % (11.5-14.5)
[2025-06-10 11:05] LABS: ALT (SGPT) 18 U/L (0-35); AST (SGOT) 21 U/L (14-36); Albumin 3.7 g/dl (3.5-5.0); Alkaline Phosphatase 127 U/L (38-126); Blood Urea Nitrogen 20 mg/dl (7-17); Calcium 10.3 mg/dl (8.4-10.2); Carbon Dioxide 26 mmol/L (22-30); Chloride 96 mmol/L (98-107); Estimated Creatinine Clearance 26 ml/min; Glucose 177 mg/dl (70-99); Potassium 4.5 mmol/L (3.5-5.1); Sodium 130 mmol/L (135-145); Total Protein 6.1 g/dl (6.3-8.2); eGFR 40.80
[2025-06-10 12:21] LABS: Glucose - Point of Care 178 mg/dl (70-99)
--- NOTE | 2025-06-10 12:42 | W.PN.NEPH.PH ---
Today's Communication / Plan
-
Okay for discharge from renal standpoint
Assessment/Plan
-
Assessment
CHANELLE likely prerenal
Hyponatremia likely some chronic component
Hyperkalemia
Metabolic acidosis
Hypertension
Diabetes mellitus type 2
Hyperlipidemia
Nausea vomiting
Hypercalcemia
Plan
follow BMP
IVF with bicarb= discontinued today
Aredia status post
lokelma potassium normalized
PTH elevated=primary hyperparathyroidism. She is not an ideal candidate for surgery and so treatment with Sensipar
Electrolytes improved
From a renal standpoint would be okay for discharge
Will need outpatient follow-up with renal as well as endocrinology
-
-
Date of Service: June 10, 2025
CC / HPI / ROS
-
Chief Complaint:
CHANELLE
History of Present Illness:
CHANELLE/Cr slightly better 1.3
Na 130
K improved
acidosis resolved
Review of Systems:
no CP/SOB
lethargic
Labs
-
Labs:
WBC 9.2 10^3/uL (4.8-10.8) 06/10/25 09:38
RBC 3.63 10^6/uL (4.20-5.40) L 06/10/25 09:38
Hgb 11.5 g/dL (12.0-16.0) L 06/10/25 09:38
Hct 32.9 % (37.0-47.0) L 06/10/25 09:38
Plt Count 291 10^3/uL (130-400) 06/10/25 09:38
Sodium 130 mmol/L (135-145) L 06/10/25 09:38
Potassium 4.5 mmol/L (3.5-5.1) 06/10/25 09:38
Chloride 96 mmol/L (98-107) L 06/10/25 09:38
Carbon Dioxide 26 mmol/L (22-30) 06/10/25 09:38
BUN 20 mg/dl (7-17) H 06/10/25 09:38
Creatinine 1.3 mg/dL (0.6-1.0) H 06/10/25 09:38
eGFR 40.80 06/10/25 09:38
Glucose 177 mg/dl (70-99) H 06/10/25 09:38
Calcium 10.3 mg/dl (8.4-10.2) H 06/10/25 09:38
Phosphorus 2.7 mg/dl (2.5-4.5) 06/08/25 06:26
Albumin 3.7 g/dl (3.5-5.0) 06/10/25 09:38
Physical Exam
-
Vital Signs:
Vital Signs
Temp Pulse Resp BP Pulse Ox
97.7 F 78 20 173/62 100
06/10/25 07:00 06/10/25 07:00 06/10/25 07:00 06/10/25 07:00 06/10/25 07:00
Cardiovascular:: Regular rate and rhythm
Respiratory:: Bilateral: Coarse
Lung Excursion:: Normal
Abdomen:: Nontender and Soft
Bowel Sounds:: Normal
Extremity Edema:: None: Bilateral:
[2025-06-10] MEDS: NOVOLOG FLEXPEN-LOW RESISTANCE 2 UNITS SC (13:13)
[2025-06-10 13:20] LABS: Glucose - Point of Care 207 mg/dl (70-99)
--- NOTE | 2025-06-10 13:22 | PTCARENOTE ---
pt lethargic and difficult to arouse accucheck 217, VS wNL resident notified pt then became more awake and alert although still drowsy and slow to respond. CXR flu and covid
[2025-06-10 14:42] LABS: COVID-19 Antigen Negative (Negative)
[2025-06-10 15:00] VITALS: BP 142/52
--- NOTE | 2025-06-10 15:17 | CM ---
Chart reviewed. Plan is for patient to discharge home w/ [facility] likely tomorrow
Patient has aide from 9-4:30. Niece, Candy, is trying to get more hours through waiver
Therapy cont to recommend skilled rehab. Spoke w/ patient bedside about SNF, encouraging rehab due to her hx w/ multiple falls. Patient firmly declining stating she wants to go home and do therapy at home.
Updated hospitalist and Candy. Per Candy, would like for patient to discharge early so aide can be available for patient at home
Plan: Home w/ [facility]
[2025-06-10] MEDS: LIPITOR 40 MG PO (17:15)
[2025-06-10 17:24] LABS: Glucose - Point of Care 146 mg/dl (70-99)
[2025-06-10] MEDS: COREG 12.5 MG PO (20:17)
[2025-06-10 21:45] LABS: Glucose - Point of Care 249 mg/dl (70-99)
[2025-06-10 23:00] VITALS: BP 118/47
[2025-06-11] MEDS: LOKELMA 10 GRAM PO (05:25)
[2025-06-11 05:41] VITALS: BMI 28.4
--- NOTE | 2025-06-11 07:14 | W.PN.HOSP.TC ---
Today's Communication/Plan
-
- Discharge today with VN
- Discharge on cinacalcet
- Tb with renal re: BP med calibration for home
Assessment / Plan
Assessment / Plan
85yo F with a hx of CAD, HFpEF, NIDDM, CKD IIIb, valvular dz, and ambulatory dysfxn who presented with n/v, found to be constipated, now improving s/p regimen of laxatives, found to have primary hyperparathyroidism, hyperkalemia, hyponatremia, &
CHANELLE, now improved s/p electrolyte correction.
#Primary hyperparathyroidism
#Hypercalcemia, improving
Pt with hx of elevated Ca and elevated PTH. Ca 11.0 on 06/07. Likely primary hyperparathyroidism vs. secondary hyperparathyroidism in s/o CKD. With secondary, would see elevated phosphorus. Phosphorus wnl. Vit D 25OH low. PTH elevated 280.7. S/p
bisphosphonate (aredia IV).
Today - Ca 8.9
- Continue cinacalcet 30mg daily, continue at discharge
- Renal following, appreciate recs
#Hyponatremia, worsened
#Hyperkalemia, resolved
Na 131, K 5.3; Na abnormalities appear chronic. K typically wnl. HyperK and hypoNa likely 2/2 lisinopril & spironolactone in s/o volume loss/vomiting. Less likely adrenal insuff given improving s/p fluids. Urine sodium elevated 105 in s/o
hyponatremia, indicating renal salt wasting. Urine osm not elevated, SIADH less likely. Will continue to hold diuretics. S/p tolvaptan. S/p lokelma.
Today, Na 131 & K 3.3
- Holding lisinopril & spironolactone given hyperK, will tb with renal about home dosing
- Monitor BMP
- Continue IVF
- Renal following, appreciate recs
#Nausea/vomiting in s/o constipation, resolved
Last BM reported >7 days prior to presentation. CT a/p demonstrating stool burden. Likely contribution from chronic hypercalcemia. BM x2 on 06/07.
- Continue senna/miralax regimen inpt (miralax bid)
- Discharge with bowel regimen including miralax & senna/docusate
#CHANELLE on CKD IIIb, improving
Pt with Cr elevated to 1.5 from baseline 1.2. Likely prerenal in s/o poor PO intake, hypovolemia w nausea/vomiting.
Today - Cr 1.4
- Renal following, appreciate recs
- Continue IVF
- Trend BMP
#Anemia, improving
Hgb 11.6>10.5>9.5. Thought to be dilutional from IVF, although continuing to worsen w PO diet intake. MCV wnl making microcytic iron def/occult blood loss unlikely. May still be dilutional given decrease in all cell lines, vs. likely element of
anemia of chronic dz given known CKD. Hgb from prior admissions has fluctuated this low as well, supporting anemia of CKD. Iron 55 wnl. Reticulocyte count 2.2 wnl. Most likely dilutional.
Today - 10.2
- Continue to monitor
#Urinary retention, resolved
CT a/p w distended bladder.
Today, balance -1600 mL. Voiding spontaneously with purewick, not requiring straight cath.
- Trend I&O
#Cough, lethargy
06/10 RN reported patient more lethargic. Intermittent cough noted. AVSS, WBC wnl. Likely not infectious. Likely fluctuating MS in s/o dementia, hospitalization. CXR no acute cardiopulmonary process.
Today - no cough
- Continue to monitor
#Chronic
#Essential HTN - hold lisinopril & spironolactone ; will give additional dose of coreg this am 6.5 and 12.5 this pm, due to systolic 165 06/10, will monitor
#Recent shingles; post-herpetic neuralgia - rash on L mid back and underneath L breast resolving; consider renally dosed gabapentin
#CAD - continue aspirin
#HFpEF - no exacerbation, continue carvedilol, currently holding lasix, consider restarting today, pending renal
#HLD - continue statin
#NIDDM - continue januvia, SSI, DM diet
#Global
- DVT ppx: SCD
- Code: full
- Diet: diabetic diet
- Dispo: home with VN today
Anticipated Discharge: Today
Subjective/Interval History
-
Date of Service: June 11, 2025
Pt feeling well, sitting up in chair eating breakfast. Complains of a bit of neck pain. Per RN, had a BM overnight.
Objective Data
-
Labs:
Laboratory Results
06/11/25
06:00
WBC Pending
Hgb Pending
Hct Pending
Plt Count Pending
Sodium Pending
Potassium Pending
Chloride Pending
Carbon Dioxide Pending
BUN Pending
Creatinine Pending
Glucose Pending
Calcium Pending
Total Bilirubin Pending
AST Pending
ALT Pending
Alkaline Phosphatase Pending
Vital Signs:
Vital Signs
Temp Pulse Resp BP Pulse Ox
97.5 F 82 18 118/47 95
06/10/25 23:00 06/10/25 23:00 06/10/25 23:00 06/10/25 23:00 06/10/25 23:00
I&O
06/09/25 06/10/25 06/11/25
06:59 06:59 06:59
Intake Total 600 / 600 1540 / 1540 480 / 480
Output Total 2200 / 2200 1400 / 1400
Balance -1600 / -1600 140 / 140 480 / 480
Review of Systems
-
Unable to obtain full review of systems at this time due to: Dementia
History Source: Patient
Constitutional: Reports No Symptoms
EENT: Reports No Symptoms Reported
Respiratory: Reports No Symptoms
Cardiac: Reports No Symptoms
Abdomen/GI: Reports No Symptoms
Musculoskeletal: Reports Other (neck pain)
Skin: Reports No Symptoms
Neuro: Reports No Symptoms
Physical Exam
-
General: Well Nourished and No Apparent Distress
HEENT: Normocephalic and Atraumatic
Respiratory: Clear to Auscultation, Non Labored Respirations and Other (no cough )
Cardiac: Regular Rhythm
GI: Soft, Nontender and Nondistended
Musculoskeletal: No Edema
Skin: Warm, Dry and Rash (resolving shingles rash under L breast)
Neuro: Awake and Alert
Psych: Calm
Data Reviewed
-
Total Time Spent with Patient (in minutes): 10
Critical Care Time (in minutes): 40
Diagnostic Radiology: Image personally visualized and interpreted and Report Reviewed by me
Labs: Labs Reviewed by me
[2025-06-11 07:38] LABS: Glucose - Point of Care 171 mg/dl (70-99)
[2025-06-11 07:48] VITALS: BP 126/53
[2025-06-11 07:59] LABS: Hematocrit 28.9 % (37.0-47.0); Hemoglobin 10.2 g/dL (12.0-16.0); Mean Corp Hgb Conc. 35.3 g/dL (33.0-37.0); Mean Corpuscular Volume 92.9 fL (81.0-99.0); Nucleated Red Blood Cells % 0 %; Platelet Count 234 10^3/uL (130-400); Red Cell Dist. Width 13.6 % (11.5-14.5)
[2025-06-11 08:01] LABS: ALT (SGPT) 15 U/L (0-35); AST (SGOT) 19 U/L (14-36); Albumin 3.2 g/dl (3.5-5.0); Alkaline Phosphatase 119 U/L (38-126); Blood Urea Nitrogen 22 mg/dl (7-17); Calcium 8.9 mg/dl (8.4-10.2); Carbon Dioxide 28 mmol/L (22-30); Chloride 97 mmol/L (98-107); Estimated Creatinine Clearance 25 ml/min; Glucose 148 mg/dl (70-99); Potassium 3.3 mmol/L (3.5-5.1); Sodium 131 mmol/L (135-145); Total Protein 5.5 g/dl (6.3-8.2); eGFR 37.33
[2025-06-11] MEDS: JANUVIA 25 MG PO (09:15)
[2025-06-11] MEDS: LOW STRENGTH ASPIRIN 81 MG PO (09:15)
[2025-06-11] MEDS: SENOKOT-S 1 TABLET PO (09:15)
[2025-06-11] MEDS: NEURONTIN 100 MG PO (09:16)
[2025-06-11] MEDS: COREG 12.5 MG PO (09:16)
[2025-06-11] MEDS: SENSIPAR 30 MG PO (09:17)
[2025-06-11] MEDS: MIRALAX PO (09:17)
[2025-06-11] MEDS: NOVOLOG FLEXPEN-LOW RESISTANCE 1 UNITS SC (09:18)
[2025-06-11] MEDS: TYLENOL 650 MG PO (09:21)
--- NOTE | 2025-06-11 10:39 | CM ---
Chart reviewed . Spoke with nurse Onelia and Dr. Dai
She is ready for dc today
Spoke with Candy and reviewed IMM
Candy is getting her aide ready for today and would call [facility] for DELIO
Candy will pick her up from hospital
--- NOTE | 2025-06-11 11:38 | W.PN.NEPH.PH ---
Today's Communication / Plan
-
Blood pressure is okay with hold lisinopril and spironolactone for now
Assessment/Plan
-
Assessment
CHANELLE likely prerenal
Hyponatremia likely some chronic component
Hyperkalemia
Metabolic acidosis
Hypertension
Diabetes mellitus type 2
Hyperlipidemia
Nausea vomiting
Hypercalcemia
Plan
follow BMP
IVF with bicarb= discontinued today
Aredia status post
lokelma potassium normalized
PTH elevated=primary hyperparathyroidism. She is not an ideal candidate for surgery and so treatment with Sensipar
Electrolytes improved
From a renal standpoint would be okay for discharge
Will need outpatient follow-up with renal as well as endocrinology
Blood pressure is okay with hold lisinopril and spironolactone for now
-
-
Date of Service: June 11, 2025
CC / HPI / ROS
-
Chief Complaint:
CHANELLE
History of Present Illness:
CHANELLE/Cr slightly better
Na improved
K improved
acidosis resolved
Review of Systems:
no CP/SOB
lethargic
Labs
-
Labs:
WBC 8.7 10^3/uL (4.8-10.8) 06/11/25 07:19
RBC 3.11 10^6/uL (4.20-5.40) L 06/11/25 07:19
Hgb 10.2 g/dL (12.0-16.0) L 06/11/25 07:19
Hct 28.9 % (37.0-47.0) L 06/11/25 07:19
Plt Count 234 10^3/uL (130-400) 06/11/25 07:19
Sodium 131 mmol/L (135-145) L 06/11/25 07:19
Potassium 3.3 mmol/L (3.5-5.1) L D 06/11/25 07:19
Chloride 97 mmol/L (98-107) L 06/11/25 07:19
Carbon Dioxide 28 mmol/L (22-30) 06/11/25 07:19
BUN 22 mg/dl (7-17) H 06/11/25 07:19
Creatinine 1.4 mg/dL (0.6-1.0) H 06/11/25 07:19
eGFR 37.33 06/11/25 07:19
Glucose 148 mg/dl (70-99) H 06/11/25 07:19
Calcium 8.9 mg/dl (8.4-10.2) 06/11/25 07:19
Phosphorus 2.7 mg/dl (2.5-4.5) 06/08/25 06:26
Albumin 3.2 g/dl (3.5-5.0) L 06/11/25 07:19
Physical Exam
-
Vital Signs:
Vital Signs
Temp Pulse Resp BP Pulse Ox
97.9 F 74 16 126/53 95
06/11/25 07:48 06/11/25 07:48 06/11/25 07:48 06/11/25 07:48 06/11/25 07:48
Cardiovascular:: Regular rate and rhythm
Respiratory:: Bilateral: Coarse
Lung Excursion:: Normal
Abdomen:: Nontender and Soft
Bowel Sounds:: Normal
Extremity Edema:: None: Bilateral:
[2025-06-11 11:41] LABS: Glucose - Point of Care 288 mg/dl (70-99)
[2025-06-11] MEDS: NOVOLOG FLEXPEN-LOW RESISTANCE 3 UNITS SC (12:58)
--- NOTE | 2025-06-11 13:05 | PTCARENOTE ---
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 in agreement with POC.
--- NOTE | 2025-06-11 13:42 | W.DCSUMMARY ---
Discharge Summary
Discharge Data
Date of Admission: 06/09/25
Date of Discharge: 06/11/25
-
Pending Results: No
Hospital Course
Discharging Physician : Hubert Dai MD ; Sheridan Patel MD
Disposition : home with VN
Primary care physician : Daiana
Principal Discharge diagnosis : Nausea/vomiting in the setting of constipation; primary hyperparathyroidism; CHANELLE; hyponatremia; hyperkalemia
Chronic Discharge diagnosis : CAD, HFpEF, NIDDM, CKD IIIB, valvular disease
Hospital Course :
85yo F with a hx of CAD, HFpEF, NIDDM, CKD IIIb, and valvular dz who presented with n/v, found to be constipated, with primary hyperparathyroidism, hypercalcemia, hyperkalemia, hyponatremia, & CHANELLE.
Patient presented on 06/06 from [facility] with nausea and vomiting. At the time of presentation, patient was afebrile, with BP 151/64 and pulse 101. Patient had slightly elevated WBC to 11.8. Hyponatremic with sodium 130.
Hypercalcemic with calcium 11.5. Potassium within normal limits 5.1. Mild acidosis with bicarb 15. CHANELLE with creatinine 1.5, BUN 36. Mild anemia with hemoglobin 11.8.X-ray of chest and abdomen was unremarkable. CT of the abdomen demonstrated
stool in the colon and distended bladder. No evidence of bowel obstruction or perforation. Patient stated that she had not had a BM in 5 to 7 days.
Over the course of the patient's admission, she was given a bowel regimen with miralax and senna/docusate. Began to have bowel movements. White count normalized. Patient's hyponatremia fluctuated down to 128, and ultimately improved to 131
(consistent with patient's baseline) following a brief course of tolvaptan. Patient's hypercalcemia was thought to be contributing to her constipation. Workup for hypercalcemia demonstrated findings consistent with primary hyperparathyroidism: PTH
elevated to 280.7, normal phosphorus, low vitamin D 25 OH. Patient was started on 30 mg Cinacalcet daily, and was given 1 dose of IV bisphosphonate (Aredia). Calcium normalized to 8.9 over course of admission. Of note, patient also developed
hyperkalemia over the course of her admission, which peaked at 5.7. Her spironolactone, lisinopril, and furosemide were held, and she was given a course of Lokelma. Potassium decreased to 3.3, and patient was restarted back on normal diet on day of
discharge. After discussion with nephrology, decision was made to continue holding spironolactone and lisinopril for this patient and to restart her on furosemide at half dose (20 mg p.o. daily) at discharge.
Patient's blood pressure was also elevated to the 160s systolic during admission. Givne this, her Coreg dose was doubled to 12.5 mg p.o. twice daily. Patient was discharged on this dose, with instructions to follow-up with her primary care
physician within 1 week. Patient was also instructed to follow-up with endocrinology and nephrology within 1 to 2 weeks, with repeat BMP labs drawn in 1 week.
Patient was also started on 100 mg gabapentin twice daily due to ongoing postherpetic neuralgia on the left trunk. CXR was obtained on the day prior to admission due to some lethargy and intermittent cough. CXR was clear, patient remained afebrile,
WBC remained within normal limits, and patient did not cough again. Mental status was back to baseline on day of discharge (06/11), and patient did not complain of cough again. Was likely just mucus secretions and fluctuating mental status and
patient with dementia/old age. Pt was discharged home to [facility] with visiting home nurse on 06/11, after discussion with Candy cheng.
Important imaging findings :
CT a/p 06/06:
1. There is no evidence of obstruction or perforation. There is a small umbilical hernia containing only fat.
2. The bladder is distended
3. There is a cyst in the right adnexa which was seen previously but appears larger.
4. There is fatty atrophy of the pancreas
5. Thickening of the adrenal glands is similar to prior studies
Procedure findings : N/A
Discharge Plan
-
Patient Disposition: Home with Home Care
Discharge Diagnosis/Procedures: constipation with nausea/vomiting; primary hyperparathyroidism w hypercalcemia; hyponatremia; hyperkalemia; CAHNELLE
Condition: Fair
Diet: No restrictions
Activity: No restrictions
Driving Restrictions: As prior to admission
Bathing Restrictions: None
Blood Work: BMP in 1 week
Other Services: VN
Referrals:
Zac Jackson MD [Consulting Staff, Endocrinology] - in one week
Referral Note: primary hyperparathyroidism
Wilfredo Robin, [Active, Nephrology] - in one to two weeks
Adry Ahmadi MD [Family Provider, Internal Medicine] - in one week
Additional Discharge Medication Instructions: Please get your blood drawn in 1 week (we have prescription for 'BMP') and follow up with your primary care provider (Dr. Ahmadi) in 1 week.
Please make an appointment with an customer care specialist (Dr. Jackson) for follow up of your primary hyperparathyroidism in 1-2 weeks.
Please make an appointment with a family readiness support assistant (Dr. Robin) in 1-2 weeks.
STOP taking your lisinopril until you see a family readiness support assistant
STOP taking your spironolactone until you see a family readiness support assistant
STOP taking your furosemide until you see a family readiness support assistant
START taking your carvedilol (coreg) at an INCREASED dose (12.5mg twice daily) for your blood pressure
START taking cinacalcet 30mg daily for your hyperparathyroidism
START taking your furosemide (lasix) at a DECREASED dose (20mg daily)
START taking miralax & docusate with senna twice daily to prevent constipation
START taking gabapentin 100mg twice daily to help with your post-shingles pain
Prescriptions:
New
carvedilol 12.5 mg Tablet
12.5 mg PO BID 30 Days Qty: 60 0RF
polyethylene glycol 3350 17 gram Powder In Packet
17 g PO BID 30 Days Qty: 14 0RF
gabapentin 100 mg Capsule
100 mg PO BID 30 Days Qty: 60 0RF
cinacalcet 30 mg Tablet
30 mg PO DAILY 30 Days Qty: 30 0RF
sennosides-docusate sodium [Senna Plus] 8.6-50 mg Tablet
1 tab PO BID 30 Days Qty: 60 0RF
furosemide [Lasix] 20 mg tablet
20 mg PO DAILY Qty: 30 0RF
Continued
atorvastatin 40 mg Tablet
40 mg PO QPM
aspirin [Children's Aspirin] 81 mg Tablet,Chewable
81 mg PO DAILY Qty: 0 0RF
Januvia 25 mg Tablet
25 mg PO DAILY
acetaminophen 325 mg tablet
650 mg PO Q6HPRN PRN (Reason: mild pain)
Held
spironolactone 25 mg Tablet
25 mg PO DAILY
Hold Instructions: Resume on 07/22/25. pending nephrology follow-up appointment
lisinopril 5 mg tablet
5 mg PO DAILY
Hold Instructions: Resume on 07/22/25. pending follow-up with nephrology
Discontinued
furosemide 40 mg Tablet
40 mg PO DAILY Qty: 0 0RF
docusate sodium [Colace] 100 mg Capsule
100 mg PO DAILYPRN PRN (Reason: constipation)
carvedilol 6.25 mg tablet
6.25 mg PO BID
Discharge Orders:
Discharge Patient (As Directed); Ordered 06/11/25
Ordered By: Sheridan Patel
Discharge Date and Time
Print Language: TAMAZIGHT
[2025-06-11 13:50] VITALS: BP 130/52
[2025-06-12 22:54] LABS: PTH Related Peptide LC-MS/MS 5.4 pmol/L (0.0-3.4)
== END 2025-06-11 13:51 | disposition home health service (06) | DRG 392 ==
LOC: 1 ACUTE 14:14
PROVIDERS: Nurse Practitioner Family; Student in an Organized Health Care Education/Training Program; ADMITTING PHYSICIAN Internal Medicine; ATTENDING PHYSICIAN Hospitalist; CONSULT PHYSICIAN Specialist; EMERGENCY PHYSICIAN Emergency Medicine; FAMILY PHYSICIAN Internal Medicine
DX: K59.00 Constipation, unspecified (principal); N17.9 Acute kidney failure, unspecified; E87.1 Hypo-osmolality and hyponatremia; I50.32 Chronic diastolic (congestive) heart failure; I13.0 Hypertensive heart and chronic kidney disease with heart failure and stage 1 through stage 4 chronic kidney disease, or unspecified chronic kidney disease; E87.20 Acidosis, unspecified; B02.29 Other postherpetic nervous system involvement; E21.0 Primary hyperparathyroidism; E87.5 Hyperkalemia; I25.10 Atherosclerotic heart disease of native coronary artery without angina pectoris; E11.22 Type 2 diabetes mellitus with diabetic chronic kidney disease; N18.32 Chronic kidney disease, stage 3b; Z79.84 Long term (current) use of oral hypoglycemic drugs; D64.9 Anemia, unspecified; K42.9 Umbilical hernia without obstruction or gangrene; K86.89 Other specified diseases of pancreas; E78.00 Pure hypercholesterolemia, unspecified; E86.1 Hypovolemia; F03.90 Unspecified dementia, unspecified severity, without behavioral disturbance, psychotic disturbance, mood disturbance, and anxiety; K21.9 Gastro-esophageal reflux disease without esophagitis; Z90.49 Acquired absence of other specified parts of digestive tract; Z90.711 Acquired absence of uterus with remaining cervical stump; Z96.653 Presence of artificial knee joint, bilateral; Z79.82 Long term (current) use of aspirin; Z79.899 Other long term (current) drug therapy; Z91.041 Radiographic dye allergy status
CPT/HCPCS: 51798; 71046; 74022; 74176; 80048; 80053; 81003; 82306; 82533; 82570; 82962; 83036; 83519; 83540; 83690; 83735; 83935; 83970; 84100; 84300; 84484; 85025; 85027; 85045; 87502; 87811; 93005; 96361; 96374; 96375; 97116; 97530; 99285; J2430